=== PATIENT | male | born 1955 | race Caucasian/White ===

== ENCOUNTER 2022-10-01 16:26 | Inpatient (IN) ==
[~2022-10-01 16:26] MED LIST: ONDANSETRON 4 MG/2 ML VIAL ONE; PHENYLephrine 1 MG/10 ML SYRINGE (ANEST) ONE; PROPOFOL 200 MG/20 ML VIAL IV ONE; ROCURONIUM 10 MG/ML ML IV ONE; SUGAMMADEX SODIUM 200 MG/2 ML VIAL IV ONE; ePHEDrine 50 MG/5 ML SYRINGE (ANEST) IV ONE; fentaNYL 100 MCG/2 ML VIAL IV ONE
[2022-10-01] MEDS ORDERED: ONDANSETRON 4 MG/2 ML VIAL IV ONE ×2 (16:58→17:59)
[2022-10-01] MEDS ORDERED: ONDANSETRON 4 MG/2 ML VIAL ONE ×2 (17:00→17:54)
--- NOTE | 2022-10-01 17:03 | Emergency Department Note ---
HPI General Chief complaint: Trauma Stated complaint: Hip pain Time Seen by Provider: 10/01/22 16:43 Source: EMS Mode of arrival: EMS Limitations: no limitations History of Present Illness HPI Narrative: Narrative: This 67-year-old was brought in by EMS after falling in his bathtub approximately 1545. EMS transported him after the use of fentanyl and his responses were a little slurred but he is clearing at this point. He called his sister who called EMS and they treated him with pain meds for what apppears to be a right hip dracture. The patient lives independently, and normally can give full answers at the current time he has slurred speech and is starting to vomit recurrently His pulse is 48 as well. Patient's had a previous craniotomy for aneurysm removal and is currently anticoagulated. His other medical history is diabetes type 2 COPD renal cell carcinoma renal insufficiency subarachnoid hemor rhage DVT status post ventriculoperitoneal shunt. Related Data Home Medications Medication Instructions Recorded Confirmed albuterol sulfate 90 mcg/actuation 2 puff inhalation Q4H PRN 12/25/19 10/02/22 aerosol inhaler (Ventolin HFA) shortness of breath or wheezing insulin glargine 100 unit/mL (3 10 unit subcut QDAY 12/25/19 10/02/22 mL) subcutaneous pen (Lantus Solostar U-100 Insulin) melatonin 3 mg tablet 3 mg PO QHS 12/25/19 10/02/22 atorvastatin 40 mg tablet 40 mg PO QDAY 03/29/22 10/02/22 clopidogrel 75 mg tablet 75 mg PO QDAY 03/29/22 10/02/22 metoprolol succinate 25 mg 25 mg PO QDAY 03/29/22 10/02/22 tablet,extended release 24 hr Previous Rx's Medication Instructions Recorded lancets (Accu-Chek Softclix #100 ea 07/30/18 Lancets) syringe (disposable) 1 mL #240 ea 07/06/19 (Monoject TB Luer Serenity) blood sugar diagnostic (Accu-Chek #100 ea 07/22/20 Aliza Plus test strips) pen needle, diabetic 31 gauge x #100 ea 10/31/21 5/16" (Unifine Pentips) acetaminophen 325 mg tablet 325 mg PO Q4H PRN fever or pain 12/07/21 #100 tabs cholestyramine (with sugar) 4 gram 4 g PO BID #378 grams 12/07/21 oral powder nitroglycerin 0.3 mg sublingual 0.3 mg sublingual Q5M PRN chest 03/21/22 tablet pain #30 tabs fluoxetine 20 mg capsule 20 mg PO QDAY #90 caps 07/27/22 warfarin 6 mg tablet See Rx Instructions PO .COMPLEX 09/12/22 #90 tabs Allergies Allergy/AdvReac Type Severity Reaction Status Date / Time lisinopril Allergy Severe Angioedema Verified 10/01/22 16:30 Bee Stings AdvReac Mild Swelling Uncoded 10/01/22 21:42 Review of Systems ROS ROS Narrative: Narrative: All systems ED: reviewed and negative except as stated. [facility] Narrative Patient History Narrative: Narrative: Medical/Surgical/Family History All Active Problems (Updated 10/02/22 @ 15:00 by Perfecto Wolf MD) Aspiration pneumonia (Acute) H/O coronary atherosclerosis (Acute) Closed hip fracture requiring operative repair (Acute) CHI (closed head injury) (Acute) H/O craniotomy (Acute) Aspiration into airway (Acute) Personal history of colonic polyps (Acute) Prostate cancer screening (Acute) COPD (chronic obstructive pulmonary disease) (Chronic) Degeneration, intervertebral disc (Acute) DMII (diabetes mellitus, type 2) (Chronic) Ankle edema (Acute 02/12/12) Hyperlipidemia (Acute) Kidney mass (Acute 11/28/11) Knee pain (Acute 02/04/12) Low back pain (Acute) Night sweats (Acute 03/17/12) Renal cell carcinoma (Acute 11/24/12) H/O renal cell carcinoma (Chronic 11/27/12) Renal insufficiency (Acute 11/28/11) Renal mass (Acute 11/16/13) Testicular hypofunction (Acute) Degenerative joint disease of right knee (Chronic) Impingement syndrome, shoulder, left (Chronic) Tobacco abuse (Chronic) Adverse reaction to ZAKIA-I (angiotensin-converting enzyme inhibitor) (Acute) Angioedema due to angiotensin converting enzyme inhibitor (ZAKIA-I) (Acute) Left knee pain (Acute) SAH (subarachnoid hemorrhage) (Acute) DVT, bilateral lower limbs (Acute) Right knee pain (Acute) termite control service representative (current) use of anticoagulants (Acute) Depression (Acute) DVT (deep venous thrombosis) (Acute) Medicare annual wellness visit, subsequent (Acute) Respirator dependence, status (Acute) Chronic diarrhea (Acute) RLQ abdominal pain (Acute) Cervicalgia (Acute) Foraminal stenosis of cervical region (Acute) History of ventriculoperitoneal shunting (Acute) Abnormal INR (Acute) Left shoulder pain (Acute) Right knee pain (Acute) Painless hematuria (Acute) BPH associated with nocturia (Acute) Annual physical exam (Acute) Tobacco abuse counseling (Acute) Gross hematuria (Acute) Olecranon bursitis of left elbow (Acute) Fracture, olecranon (Acute) Hand swelling (Acute) Left eye pain (Acute) Tobacco abuse counseling (Acute) Acute non-ST elevation myocardial infarction (NSTEMI) (Acute) Stented coronary artery (Acute) History of left heart catheterization (Acute) Medical History Abnormal INR Abscess of skin or subcutaneous tissue Ankle edema (02/12/12) Bilateral Annual physical exam Annual physical exam BPH associated with nocturia Cholecystitis (10/26/11) Cholelithiasis (10/26/11) Chronic diarrhea COPD (chronic obstructive pulmonary disease) Degeneration, intervertebral disc Degenerative joint disease of right knee Moderaate Depression DMII (diabetes mellitus, type 2) DVT (deep venous thrombosis) DVT, bilateral lower limbs Epididymitis (02/04/12) H/O renal cell carcinoma (11/27/12) History of gastrostomy tube placement (11/11/19) History of left heart catheterization NSTEMI with stent placement 05/2022 at [facility] Hospital discharge follow-up Hyperlipidemia Impingement syndrome, shoulder, left Kidney mass (11/28/11) Patient had laparoscopic left nephrectomy with Dr. 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 Vita MELISSA (subarachnoid hemorrhage) Subungual contusion of toe of left foot Testicular hypofunction Tobacco abuse Tobacco abuse counseling Tooth abscess URI (upper respiratory infection) (05/16/14) [facility] Surgical History H/O prostate biopsy (11/28/11) Done in [place] H/O right knee surgery 2006 Right knee scope with Dr. Gorman H/O shoulder surgery Right shoulder surgery early November 2013 per 12-30-2013 Dr. Gorman H/O wisdom tooth extraction (07/19/06) Hx of cholecystectomy (11/28/11) Done at [facility] with Dr. Schmdit S/p nephrectomy (11/28/11) Left nephrectomy done laparoscopic with Dr. Chandra in [place], [place] at [facility] Family History Father Disorder of gallbladder Aunt Disorder of gallbladder Unknown Essential hypertension Sister Kidney disorder Mother Malignant neoplasm of lung Smoker Other Cancer Diabetes Prostate cancer Social History Smoking Status: Current every day smoker Alcohol Intake Frequency: a few times a week Substance Use: does not use Exam Narrative Narrative: Narrative: General: Patient vomiting when I first went into the room. He was laid flat by EMS. We responded by raising the head of his bed and suctioning him, he was still conscious and answering questions though. Neuro: GCS = 13 (e3/v4/m6) Cranial nerves II through XII are grossly intact; there is no sensory or motor deficit with the exception of the patient's right hip due to its being very painful. Ortho: Deformed externally rotated and shortened hip pelvis is nontender neck and thoracic and lumbar vertebral dorsal processes are nontender. Cranium has no new skull defects, but has signs of previous craniotomy. Neg hemetympanum , PERRA EOMI with 2 beat nystagmus. The rest of his body has full range of motion of all extremities, without deformity. Lung sounds are clear and equal bilaterally, heart is a regular rate and rhythm without murmurs clicks rubs or gallops General Limitations: no limitations Course Course Course Narrative: Patient was suctioned and the head of the bed was raised. He was given ondansetron 4 mg IV and taken to CAT scan for a head CT without contrast. As well as a hip and a chest x-ray. The head CT showed no acute intracranial bleed but did see a [employer] shunt on the left parietal lobe. His hip fracture look like a right femoral neck almost an intertrochanteric fracture with external rotation and shortening of the leg. Dr. Sanders was contacted and agreed to consult on the patient he also recalled the hospitalist. The patient's INR is 2 at this time on Coumadin. Reevaluation(s) Reevaluation #1: On recheck, the patient was sitting up and able to answer questions more cogently. He had no cough at the time and its possible he did not aspirate even no he was vomiting straight over his head when I first saw him. The plan to admit the patient check his x-rays and clinical condition for possible aspiration was transmitted to the patient and his sister and they both understood and agreed to the admission. Patient was turned over to Dr. Hernandez at change of shift. Time: 18:15 Vital Signs Vital signs: Vital Signs Temperature 97.2 F 10/01/22 16:27 Pulse Rate 48 L 10/01/22 16:27 Respiratory Rate 12 10/01/22 16:27 Blood Pressure 158/66 10/01/22 16:27 Pulse Oximetry (%) 90 10/01/22 16:27 Oxygen Delivery Method Nasal Cannula 10/01/22 16:27 Oxygen Flow Rate (L/min) 2 10/01/22 16:27 Temperature 97.9 F 10/05/22 03:40 Pulse Rate 56 L 10/05/22 04:00 Respiratory Rate 18 10/05/22 04:00 Blood Pressure 156/73 10/05/22 03:40 Pulse Oximetry (%) 96 10/05/22 04:00 Oxygen Delivery Method Nasal Cannula 10/05/22 04:00 Oxygen Flow Rate (L/min) 3 10/05/22 04:00 [facility] MDM Narrative Medical decision making narrative: Narrative: Lab Data 10/05/22 05:20 10/05/22 05:20 Labs: Lab Results 10/01/22 10/01/22 10/01/22 Range/Units 03:10 16:54 16:55 WBC 13.2 H (4.5-11.0) K/mcL RBC 4.23 L (4.63-6.08) M/mcL Hgb 12.6 L (13.7-17.5) g/dL Hct 38.1 L (40.1-51.0) % POC Hct (41-55) MCV 90.1 (80.0-100.0) fL MCH 29.8 (26.0-34.0) pg MCHC 33.1 (31.0-36.0) g/dL RDW 14.6 H (11.5-14.5) % Plt Count 184 (140-440) K/mcL MPV 10.6 (8.8-12.5) fL Immature Gran % (Auto) 0.9 H (0.0-0.5) % Neut % (Auto) 75.1 (38.0-78.0) % Lymph % (Auto) 14.1 L (15.5-49.0) % [place] % (Auto) 8.2 (1.0-12.0) % Eos % (Auto) 1.2 (0.0-7.0) % Baso % (Auto) 0.5 (0.0-2.0) % Lymph # (Auto) 1.86 (1.50-4.80) K/mcL [place] # (Auto) 1.08 H (0.10-0.90) K/mcL Eos # (Auto) 0.16 (0.00-0.70) K/mcL Baso # (Auto) 0.07 (0.00-0.30) K/mcL Immature Gran # 0.12 H (0.00-0.05) K/mcl Absolute Neutrophils 9.87 H (1.80-8.00) K/mcL PT 23.5 H (11.9-14.5) sec INR 2.0 H (0.9-1.1) APTT 34.2 (20.0-37.0) sec POC Sodium (133-145) POC Potassium (3.3-5.1) POC Chloride (96-108) POC Total CO2 (22-30) POC BUN (6-20) POC Creatinine (0.6-1.2) POC Glucose (70-105) POC WB Ioniz Calcium (1.16-1.32) Urine Opiates Screen None detected Ur Opiates Confirm TNP Ur Oxycodone Screen Suspect positive A Urine Methadone Screen None detected Ur Methadone Confirm TNP Ur Barbiturates Screen None detected Ur Barbiturate Confirm TNP Ur Phencyclidine Scrn None detected Urine PCP Confirm TNP Ur Amphetamines Screen None detected U Amphetamines Confirm TNP U Benzodiazepines Scrn None detected Ur Benzodiazepine, Qnt TNP Urine Cocaine Screen None detected Urine Cocaine Confirm TNP U Cannabinoids Confirm TNP U Marijuana (THC) Screen None detected Urine Alcohol None detected mg/dL POC Troponin I (0.00-0.08) 10/01/22 10/01/22 Range/Units 17:42 17:45 WBC (4.5-11.0) K/mcL RBC (4.63-6.08) M/mcL Hgb (13.7-17.5) g/dL Hct (40.1-51.0) % POC Hct 42.0 (41-55) MCV (80.0-100.0) fL MCH (26.0-34.0) pg MCHC (31.0-36.0) g/dL RDW (11.5-14.5) % Plt Count (140-440) K/mcL MPV (8.8-12.5) fL Immature Gran % (Auto) (0.0-0.5) % Neut % (Auto) (38.0-78.0) % Lymph % (Auto) (15.5-49.0) % [place] % (Auto) (1.0-12.0) % Eos % (Auto) (0.0-7.0) % Baso % (Auto) (0.0-2.0) % Lymph # (Auto) (1.50-4.80) K/mcL [place] # (Auto) (0.10-0.90) K/mcL Eos # (Auto) (0.00-0.70) K/mcL Baso # (Auto) (0.00-0.30) K/mcL Immature Gran # (0.00-0.05) K/mcl Absolute Neutrophils (1.80-8.00) K/mcL PT (11.9-14.5) sec INR (0.9-1.1) APTT (20.0-37.0) sec POC Sodium 141 (133-145) POC Potassium 4.5 (3.3-5.1) POC Chloride 109 H (96-108) POC Total CO2 24.0 (22-30) POC BUN 21 H (6-20) POC Creatinine 1.2 (0.6-1.2) POC Glucose 174 H (70-105) POC WB Ioniz Calcium 1.10 L (1.16-1.32) Urine Opiates Screen Ur Opiates Confirm Ur Oxycodone Screen Urine Methadone Screen Ur Methadone Confirm Ur Barbiturates Screen Ur Barbiturate Confirm Ur Phencyclidine Scrn Urine PCP Confirm Ur Amphetamines Screen U Amphetamines Confirm U Benzodiazepines Scrn Ur Benzodiazepine, Qnt Urine Cocaine Screen Urine Cocaine Confirm U Cannabinoids Confirm U Marijuana (THC) Screen Urine Alcohol mg/dL POC Troponin I < 0.02 (0.00-0.08) Discharge Plan Patient/Caregiver Discharge Instructions Pt seen by ELECTRIC RELAY TESTER/PA only: No Clinical Impression: CHI (closed head injury), H/O craniotomy, Aspiration into airway Closed hip fracture requiring operative repair Qualifiers: Encounter type: initial encounter Activity: as instructed Patient Disposition: Xfer As Inpt ([facility]) Discharge Date/Time: 10/01/22 21:02
[2022-10-01 17:17] LABS: Basophils # (Auto) 0.07 K/mcL (0.00-0.30); Basophils % (Auto) 0.5 % (0.0-2.0); Eosinophils # (Auto) 0.16 K/mcL (0.00-0.70); Eosinophils % (Auto) 1.2 % (0.0-7.0); Hematocrit 38.1 % (40.1-51.0); Hemoglobin 12.6 g/dL (13.7-17.5); Lymphocytes # (Auto) 1.86 K/mcL (1.50-4.80); Lymphocytes % (Auto) 14.1 % (15.5-49.0); Mean Cell Volume 90.1 fL (80.0-100.0); Mean Corpuscular HGB Conc 33.1 g/dL (31.0-36.0); Mean Platelet Volume 10.6 fL (8.8-12.5); Monocytes # (Auto) 1.08 K/mcL (0.10-0.90); Monocytes % (Auto) 8.2 % (1.0-12.0); Neutrophils % (Auto) 75.1 % (38.0-78.0); Platelet Count 184 K/mcL (140-440); RBC 4.23 M/mcL (4.63-6.08); Red Cell Distribution Width 14.6 % (11.5-14.5); WBC 13.2 K/mcL (4.5-11.0)
[2022-10-01 17:28] LABS: Partial Thromboplastin Time 34.2 sec (20.0-37.0); Prothrombin Time 23.5 sec (11.9-14.5)
--- NOTE | 2022-10-01 17:49 | XRay Report ---
CLINICAL INFORMATION: Aspiration COMPARISON: 03/21/2022 TECHNIQUE: PA and Lateral views FINDINGS: The heart size, mediastinum and pulmonary vessels are unremarkable. The lungs are clear. There are no effusions. The bones and soft tissues are within normal limits. IMPRESSION: Normal chest. Interpreted and Authenticated by: Crow Rosario 10/01/22
--- NOTE | 2022-10-01 17:51 | XRay Report ---
CLINICAL INFORMATION: 3414 trauma COMPARISON: Pelvic CT 02/05/2012 FINDINGS: Acute intertrochanteric fracture of the right hip shows mild impaction and very slight coxa vera angulation. No displacement. Both hip and SI joints are normal with alignment without arthritic change. Soft tissues normal. IMPRESSION: Slightly impacted, angulated acute intertrochanteric fracture of the right hip Interpreted and Authenticated by: Crow Rosario 10/01/22
--- NOTE | 2022-10-01 17:55 | Cat Scan Report ---
CLINICAL INFORMATION: COMPARISON: None. TECHNIQUE: 2.5 mm helical slices were obtained in the skull base to vertex. Following reconstruction, axial reformatted images were reviewed at bone and parenchymal windows. The exam was performed using radiation dose optimization techniques including, but not limited to, automated exposure control, adjustment of the mA and/or kV according to patient size and use of iterative reconstruction technique. FINDINGS: A [facility] shunt catheter enters through a left parietal craniotomy, near vertex, and extends anteriorly/inferiorly through the left parietal lobe including the deep left parietal and left frontal white matter, the genu and anterior limb of the left internal and the left caudate nucleus. The tip of the catheter is seen in the frontal horn of the left lateral ventricle. The ventricles sulci fissures and cisterns are symmetrically enlarged compatible with mild atrophy.. There is no hemorrhage or other normality seen along the shunt tract. Patchy chronic ischemic changes are noted in the deep left frontal white matter. Bitemporal craniotomy changes noted with aneurysm clips in the region of the M2 middle cerebral arteries. There is a 3 cm region of encephalomalacia in the right anterior temporal lobe in the region of the clip. Also 3 cm region of encephalomalacia in the left frontal lobe anterior to the left aneurysm clip. IMPRESSION: 1. [facility] shunt catheter entering through left posterior parietal craniotomy extending anteriorly through the left parietal lobe, deep left parietal and frontal white matter, internal capsule and caudate nucleus. Catheter tip penetrates penetrates the frontal horn of the lateral ventricle. Delete that 2. 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 Moderate encephalomalacia in the adjacent left frontal lobe and adjacent right anterior temporal lobe. Interpreted and Authenticated by: Crow Rosario 10/01/22
[2022-10-01 17:57] LABS: POC Calcium, Ionized 1.1 (1.16-1.32); POC Creatinine 1.2 (0.6-1.2); POC Potassium 4.5 (3.3-5.1)
[2022-10-01] MEDS ORDERED: PIPERACILLIN SODIUM/TAZOBACTAM 4.5 GM in DEXTROSE 5% IN WATER 50 ML IV ONE (18:22)
--- NOTE | 2022-10-01 19:24 | Orthopedic Consult Note ---
HPI Date of Consult Consult Date: 10/02/22 Primary Care Provider: Billy Mascorro MD Consult Narrative Patient Information: Note initiated : 10/01/22 at 7:17 pm Service Date, if different from initiated Date: [] Patient: Wm Turner 67 y/o M admitted on for Hip pain. Chief Complaint: [Right hip pain status post fall] Chief complaint: Right hip pain status post fall Reason for consult: Right hip pain status post fall cc:: CC: Review of Systems All systems: reviewed and no additional remarkable complaints except as stated PFSH PFSH All Active Problems (Updated 10/02/22 @ 06:08 by Alvin Kaiser PA-C) H/O coronary atherosclerosis (Acute) Closed hip fracture requiring operative repair (Acute) CHI (closed head injury) (Acute) H/O craniotomy (Acute) Aspiration into airway (Acute) Personal history of colonic polyps (Acute) Prostate cancer screening (Acute) COPD (chronic obstructive pulmonary disease) (Chronic) Degeneration, intervertebral disc (Acute) DMII (diabetes mellitus, type 2) (Chronic) Ankle edema (Acute 02/12/12) Hyperlipidemia (Acute) Kidney mass (Acute 11/28/11) Knee pain (Acute 02/04/12) Low back pain (Acute) Night sweats (Acute 03/17/12) Renal cell carcinoma (Acute 11/24/12) H/O renal cell carcinoma (Chronic 11/27/12) Renal insufficiency (Acute 11/28/11) Renal mass (Acute 11/16/13) Testicular hypofunction (Acute) Degenerative joint disease of right knee (Chronic) Impingement syndrome, shoulder, left (Chronic) Tobacco abuse (Chronic) Adverse reaction to ZAKIA-I (angiotensin-converting enzyme inhibitor) (Acute) Angioedema due to angiotensin converting enzyme inhibitor (ZAKIA-I) (Acute) Left knee pain (Acute) SAH (subarachnoid hemorrhage) (Acute) DVT, bilateral lower limbs (Acute) Right knee pain (Acute) 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 (Acute) Depression (Acute) DVT (deep venous thrombosis) (Acute) Medicare annual wellness visit, subsequent (Acute) Respirator dependence, status (Acute) Chronic diarrhea (Acute) RLQ abdominal pain (Acute) Cervicalgia (Acute) Foraminal stenosis of cervical region (Acute) History of ventriculoperitoneal shunting (Acute) Abnormal INR (Acute) Left shoulder pain (Acute) Right knee pain (Acute) Painless hematuria (Acute) BPH associated with nocturia (Acute) Annual physical exam (Acute) Tobacco abuse counseling (Acute) Gross hematuria (Acute) Olecranon bursitis of left elbow (Acute) Fracture, olecranon (Acute) Hand swelling (Acute) Left eye pain (Acute) Tobacco abuse counseling (Acute) Acute non-ST elevation myocardial infarction (NSTEMI) (Acute) Stented coronary artery (Acute) History of left heart catheterization (Acute) Medical History Abnormal INR Abscess of skin or subcutaneous tissue Ankle edema (02/12/12) Bilateral Annual physical exam Annual physical exam BPH associated with nocturia Cholecystitis (10/26/11) Cholelithiasis (10/26/11) Chronic diarrhea COPD (chronic obstructive pulmonary disease) Degeneration, intervertebral disc Degenerative joint disease of right knee Moderaate Depression DMII (diabetes mellitus, type 2) DVT (deep venous thrombosis) DVT, bilateral lower limbs Epididymitis (02/04/12) H/O renal cell carcinoma (11/27/12) History of gastrostomy tube placement (11/11/19) History of left heart catheterization NSTEMI with stent placement 05/2022 at [facility] Hospital discharge follow-up Hyperlipidemia Impingement syndrome, shoulder, left Kidney mass (11/28/11) Patient had laparoscopic left nephrectomy with Dr. 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 Vita MELISSA (subarachnoid hemorrhage) Subungual contusion of toe of left foot Testicular hypofunction Tobacco abuse Tobacco abuse counseling Tooth abscess URI (upper respiratory infection) (05/16/14) SERGE Sesay Surgical History H/O prostate biopsy (11/28/11) Done in [place] H/O right knee surgery 2006 Right knee scope with Dr. Gorman H/O shoulder surgery Right shoulder surgery early November 2013 per 12-30-2013 Dr. Gorman H/O wisdom tooth extraction (07/19/06) Hx of cholecystectomy (11/28/11) Done at [facility] with Dr. Schmidt S/p nephrectomy (11/28/11) Left nephrectomy done laparoscopic with Dr. Chandra in [place], [place] at [facility] Family History Father Disorder of gallbladder Aunt Disorder of gallbladder Unknown Essential hypertension Sister Kidney disorder Mother Malignant neoplasm of lung Smoker Other Cancer Diabetes Prostate cancer Social History household members: significant other occupational status: disabled other: Children - 2 smoking status: Former smoker smoking status stop date: 09/27/22 alcohol intake frequency: a few times a week substance use type: does not use MEDS/ALLERGIES Home Medications and Allergies Home Medications Medication Instructions Recorded Confirmed Type lancets (Accu-Chek Softclix #100 ea 07/30/18 09/12/22 Rx Lancets) syringe (disposable) 1 mL #240 ea 07/06/19 09/12/22 Rx (Monoject TB Luer Serenity) albuterol sulfate 90 mcg/actuation 2 puff inhalation Q4H PRN 12/25/19 09/12/22 History aerosol inhaler (Ventolin HFA) shortness of breath or wheezing insulin glargine 100 unit/mL (3 10 unit subcut QDAY 12/25/19 09/12/22 History mL) subcutaneous pen (Lantus Solostar U-100 Insulin) melatonin 3 mg tablet 3 mg PO QHS 12/25/19 09/12/22 History blood sugar diagnostic (Accu-Chek #100 ea 07/22/20 09/12/22 Rx Aliza Plus test strips) pen needle, diabetic 31 gauge x #100 ea 10/31/21 09/12/22 Rx 5/16" (Unifine Pentips) acetaminophen 325 mg tablet 325 mg PO Q4H PRN fever or pain 12/07/21 09/12/22 Rx #100 tabs cholestyramine (with sugar) 4 gram 4 g PO BID #378 grams 12/07/21 09/12/22 Rx oral powder nitroglycerin 0.3 mg sublingual 0.3 mg sublingual Q5M PRN chest 03/21/22 09/12/22 Rx tablet pain #30 tabs atorvastatin 40 mg tablet 40 mg PO QDAY 03/29/22 09/12/22 History clopidogrel 75 mg tablet 75 mg PO QDAY 03/29/22 09/12/22 History metoprolol succinate 25 mg 25 mg PO QDAY 03/29/22 09/12/22 History tablet,extended release 24 hr fluoxetine 20 mg capsule 20 mg PO QDAY #90 caps 07/27/22 09/12/22 Rx warfarin 6 mg tablet See Rx Instructions PO .COMPLEX 09/12/22 09/12/22 Rx #90 tabs Allergies Allergy/AdvReac Type Severity Reaction Status Date / Time lisinopril Allergy Severe Angioedema Verified 10/01/22 16:30 Bee Stings AdvReac Mild Swelling Uncoded 10/01/22 21:42 Physical Examination Narrative Narrative: Narrative: Patient is a 67-year-old male on clopidogrel and Coumadin for anticoagulation with history of multiple comorbidities including: DVT, craniotomy for aneurysm, nephrectomy secondary to renal cell carcinoma, diabetes mellitus type 2 and history of tobacco abuse. Who presented to the [facility] emergency department via EMS after a fall in the bathtub in his own home and complained of right hip pain. Patient was medicated with fentanyl for pain by EMS prior to arrival. Upon arrival patient vomited with concern of aspiration, however chest examination appears clear and patient was evidently able to communicate with the ED provider without difficulty and without cough or shortness of breath. Imaging obtained in the ED includes head CT without contrast, AP view of the chest, and 3 views of the right hip and pelvis. Head CT is notable for atrophy and left-sided ventriculoperitoneal shunt. There is no obvious intracranial hemorrhage at this time. Imaging of the pelvis reveals right-sided intertrochanteric fracture of the right proximal femur with some mild rotation of the distal fragment. Dr. Sanders orthopedic surgeon And MELINDA Spicer were consulted for treatment options. A/P Assessment and plan (1) Closed hip fracture requiring operative repair: Status: Acute Qualifiers: Encounter type: initial encounter Plan On exam patient is laying in bed in no acute distress. He is alert and oriented x3, CN II through XII are grossly intact, pupils are PERRL with intact ocular motion. Head, neck, chest, abdomen are nontender to palpation. Lungs are equal and clear bilaterally heart normal rate and rhythm. Bilateral upper extremities are warm, well-perfused, neurovascularly intact. Bilateral lower extremities are warm, well-perfused, neurovascularly intact. At the right side hip and pelvis there is external rotation and tenderness to palpation as well as with any range of motion. Options were presented to the patient including nonsurgical and surgical option nonsurgical consisting of splinting, pain medicines, extended bedrest. Nonsurgical option carries the risk of increased pain, risk of DVT and pulmonary embolism, risk of injury to adjacent blood vessels nerves and other structures, loss of ambulation and mobility. At this time patient is interested in surgery. Plan is for right hip percutaneous intramedullary nail placement to take place emergently with Dr. Sanders orthopedic surgeon and MELINDA Spicer. Surgical risks were explained to the patient including but not limited to: Pain, bleeding, infection, injury to adjacent structures including nerves and blood vessels, need for further surgery, implant failure, stroke risk, cardiac c omplications including heart attack or ME, pulmonary complications including pneumonia or pulmonary embolism, anesthesia reactions and . Patient understands these risks and wishes to proceed with surgery. At last check, patient's INR was 2.0 we will await hospitalist medical clearance and morning lab values of the patient for surgical intervention. Nursing supervisor car and yard is aprised of situation and potential for surgery, she will have nursing contact surgeon and OR when we are cleared for surgery, likely this afternoon. Time Spent With Patient Time: Total time spent is greater than 50% in coordination of care (as documented) at patient's floor/unit and/or counseling patient:
--- NOTE | 2022-10-01 19:39 | Internal Med History&Physical ---
HPI History of Present Illness Patient information: Note initiated : 10/01/22 at 7:27 pm Service Date, if different from initiated Date: [] Patient: Wm Turner a 67 y/o M admitted on for Hip pain. Chief Complaint: [Fall] Chief complaint: Fall History of present illness: Mr. Turner is a 67 year old M history of DVT, type 2 diabetes mellitus, depression, COPD, CAD, dyslipidemia, presenting with 1 day history of cute onset 4. Today at around 1 PM when patient was taking shower in his own bathroom, he fell. He stated that he did not lose consciousness. However, he does not remember much details about the accident. Right now he is complaining of severe constant right hip pain without radiations. He denies any chest pain or palpitations. He denies any headache. He denies any confusions. He denies any lethargy. He denies any shortness of breath cough or respiratory wheezings. X-ray showing right hip intertrochanteric fracture. CT of the head without contrast did not show any acute intracranial pathologies. Chest x-ray does not show any intra thoracic pathologies. Admission request is called for right hip fracture. INR 2.0 patient is on Coumadin. Constitutional Constitutional: Absent chills, excessive sweating, fatigue, fever(s) or weakness EENT Eyes: Absent blurry vision, change in vision, loss of vision or other visual disturbances Ears: Absent decreased hearing or tinnitus Nose, mouth and throat: Absent abnormal hearing, dry mouth, headache(s), nasal congestion or sore throat Cardiovascular Cardiovascular: Absent chest pain, chest pain at rest, edema, irregular heart rhythm or palpatations Respiratory Respiratory: Absent cough, dyspnea or wheezing Gastrointestinal Gastrointestinal: Absent abdominal pain, constipation, diarrhea, nausea or vomiting Musculoskeletal Musculoskeletal: Absent back pain, deformity, limited range of motion, muscle cramps, muscle weakness or numbness Additional comments: Right hip pain Integumentary Integumentary: Absent lesions, rash or wounds Neurological Neurological: Absent focal weakness, headache(s) or numbness Psychiatric Psychiatric: Absent anxiety, depression or hallucinations PFSH PFSH All Active Problems (Updated 10/01/22 @ 19:32 by Perfecto Wolf MD) H/O coronary atherosclerosis (Acute) Closed hip fracture requiring operative repair (Acute) CHI (closed head injury) (Acute) H/O craniotomy (Acute) Aspiration into airway (Acute) Personal history of colonic polyps (Acute) Prostate cancer screening (Acute) COPD (chronic obstructive pulmonary disease) (Chronic) Degeneration, intervertebral disc (Acute) DMII (diabetes mellitus, type 2) (Chronic) Ankle edema (Acute 02/12/12) Hyperlipidemia (Acute) Kidney mass (Acute 11/28/11) Knee pain (Acute 02/04/12) Low back pain (Acute) Night sweats (Acute 03/17/12) Renal cell carcinoma (Acute 11/24/12) H/O renal cell carcinoma (Chronic 11/27/12) Renal insufficiency (Acute 11/28/11) Renal mass (Acute 11/16/13) Testicular hypofunction (Acute) Degenerative joint disease of right knee (Chronic) Impingement syndrome, shoulder, left (Chronic) Tobacco abuse (Chronic) Adverse reaction to ZAKIA-I (angiotensin-converting enzyme inhibitor) (Acute) Angioedema due to angiotensin converting enzyme inhibitor (ZAKIA-I) (Acute) Left knee pain (Acute) SAH (subarachnoid hemorrhage) (Acute) DVT, bilateral lower limbs (Acute) Right knee pain (Acute) penitentiary (current) use of anticoagulants (Acute) Depression (Acute) DVT (deep venous thrombosis) (Acute) Medicare annual wellness visit, subsequent (Acute) Respirator dependence, status (Acute) Chronic diarrhea (Acute) RLQ abdominal pain (Acute) Cervicalgia (Acute) Foraminal stenosis of cervical region (Acute) History of ventriculoperitoneal shunting (Acute) Abnormal INR (Acute) Left shoulder pain (Acute) Right knee pain (Acute) Painless hematuria (Acute) BPH associated with nocturia (Acute) Annual physical exam (Acute) Tobacco abuse counseling (Acute) Gross hematuria (Acute) Olecranon bursitis of left elbow (Acute) Fracture, olecranon (Acute) Hand swelling (Acute) Left eye pain (Acute) Tobacco abuse counseling (Acute) Acute non-ST elevation myocardial infarction (NSTEMI) (Acute) Stented coronary artery (Acute) History of left heart catheterization (Acute) Medical History Abnormal INR Abscess of skin or subcutaneous tissue Ankle edema (02/12/12) Bilateral Annual physical exam Annual physical exam BPH associated with nocturia Cholecystitis (10/26/11) Cholelithiasis (10/26/11) Chronic diarrhea COPD (chronic obstructive pulmonary disease) Degeneration, intervertebral disc Degenerative joint disease of right knee Moderaate Depression DMII (diabetes mellitus, type 2) DVT (deep venous thrombosis) DVT, bilateral lower limbs Epididymitis (02/04/12) H/O renal cell carcinoma (11/27/12) History of gastrostomy tube placement (11/11/19) History of left heart catheterization NSTEMI with stent placement 05/2022 at [facility] Hospital discharge follow-up Hyperlipidemia Impingement syndrome, shoulder, left Kidney mass (11/28/11) Patient had laparoscopic left nephrectomy with Dr. Chandra in [facility] Knee pain (02/04/12) Right knee Left shoulder pain penitentiary (current) use of anticoagulants penitentiary current use of anticoagulant therapy Low back pain Medicare annual wellness visit, subsequent Night sweats (03/17/12) Renal cell carcinoma (11/24/12) Renal insufficiency (11/28/11) Renal mass (11/16/13) Respirator dependence, status Right knee pain Right knee pain RLQ abdominal pain Rotator cuff (capsule) sprain and strain 12-30-2013 Dr. Gorman SAH (subarachnoid hemorrhage) Subungual contusion of toe of left foot Testicular hypofunction Tobacco abuse Tobacco abuse counseling Tooth abscess URI (upper respiratory infection) (05/16/14) SERGE Sesay Surgical History H/O prostate biopsy (11/28/11) Done in [place] H/O right knee surgery 2006 Right knee scope with Dr. Gorman H/O shoulder surgery Right shoulder surgery early November 2013 per 12-30-2013 Dr. Gorman H/O wisdom tooth extraction (07/19/06) Hx of cholecystectomy (11/28/11) Done at [facility] with Dr. Schmidt S/p nephrectomy (11/28/11) Left nephrectomy done laparoscopic with Dr. Chandra in [place], [place] at [facility] Family History Father Disorder of gallbladder Aunt Disorder of gallbladder Unknown Essential hypertension Sister Kidney disorder Mother Malignant neoplasm of lung Smoker Other Cancer Diabetes Prostate cancer Social History household members: significant other occupational status: disabled other: Children - 2 smoking status: Current every day smoker tobacco type: cigarettes per day: 10 alcohol intake frequency: a few times a week substance use type: does not use MEDS/ALLERGIES Home Medications and Allergies Home Medications Medication Instructions Recorded Confirmed Type lancets (Accu-Chek Softclix #100 ea 07/30/18 09/12/22 Rx Lancets) syringe (disposable) 1 mL #240 ea 07/06/19 09/12/22 Rx (Monoject TB Luer Serenity) albuterol sulfate 90 mcg/actuation 2 puff inhalation Q4H PRN 12/25/19 09/12/22 History aerosol inhaler (Ventolin HFA) shortness of breath or wheezing insulin glargine 100 unit/mL (3 10 unit subcut QDAY 12/25/19 09/12/22 History mL) subcutaneous pen (Lantus Solostar U-100 Insulin) melatonin 3 mg tablet 3 mg PO QHS 12/25/19 09/12/22 History blood sugar diagnostic (Accu-Chek #100 ea 07/22/20 09/12/22 Rx Aliza Plus test strips) pen needle, diabetic 31 gauge x #100 ea 10/31/21 09/12/22 Rx 5/16" (Unifine Pentips) acetaminophen 325 mg tablet 325 mg PO Q4H PRN fever or pain 12/07/21 09/12/22 Rx #100 tabs cholestyramine (with sugar) 4 gram 4 g PO BID #378 grams 12/07/21 09/12/22 Rx oral powder nitroglycerin 0.3 mg sublingual 0.3 mg sublingual Q5M PRN chest 03/21/22 09/12/22 Rx tablet pain #30 tabs atorvastatin 40 mg tablet 40 mg PO QDAY 03/29/22 09/12/22 History clopidogrel 75 mg tablet 75 mg PO QDAY 03/29/22 09/12/22 History metoprolol succinate 25 mg 25 mg PO QDAY 03/29/22 09/12/22 History tablet,extended release 24 hr fluoxetine 20 mg capsule 20 mg PO QDAY #90 caps 07/27/22 09/12/22 Rx warfarin 6 mg tablet See Rx Instructions PO .COMPLEX 09/12/22 09/12/22 Rx #90 tabs Allergies Allergy/AdvReac Type Severity Reaction Status Date / Time lisinopril Allergy Severe Angioedema Verified 10/01/22 16:30 Bee Stings Allergy Unknown Unknown Uncoded 09/12/22 12:49 EXAM Constitutional Vitals: Temp Pulse Resp BP Pulse Ox O2 Del Method O2 Flow Rate 36.2 C 54 L 20 122/92 97 Nasal Cannula 2 10/01/22 16:27 10/01/22 19:15 10/01/22 19:15 10/01/22 19:02 10/01/22 19:15 10/01/22 16:27 10/01/22 16:27 General appearance: cooperative and no acute distress Head Head exam: Present atraumatic and normocephalic Eye Eye exam: Present EOMI and PERRL ENT ENT exam: Present mucous membranes moist, normal exam and normal external ear exam Neck Neck exam: Present normal inspection; Absent lymphadenopathy, tenderness or thyromegaly Respiratory Respiratory exam: Absent accessory muscle use, respiratory distress or wheezes Cardiovascular Cardiovascular exam: Present normal rate and rhythm; Absent JVD GI/Abdominal GI/Abdominal exam: Present normal bowel sounds and soft; Absent organomegaly or tenderness Rectal Rectal exam: Present deferred Extremities Exam Extremities exam: Present normal capillary refill and tenderness; Absent full ROM or normal inspection Additional comments: Right hip active and passive ROMs limited by pain Neurological Exam Neurological exam: Present alert, CN II-XII intact and oriented X3; Absent motor sensory deficit Psychiatric Psychiatric exam: Present normal affect and normal mood; Absent anxious or depressed Skin Skin exam: Present dry and intact DATA Data Completed and Pending Labs: Labs from last 24 hours 10/01/22 10/01/22 10/01/22 17:45 17:42 16:55 WBC 13.2 H RBC 4.23 L Hgb 12.6 L Hct 38.1 L POC Hct 42.0 MCV 90.1 MCH 29.8 MCHC 33.1 RDW 14.6 H Plt Count 184 MPV 10.6 Immature Gran % (Auto) 0.9 H Neut % (Auto) 75.1 Lymph % (Auto) 14.1 L [place] % (Auto) 8.2 Eos % (Auto) 1.2 Baso % (Auto) 0.5 Lymph # (Auto) 1.86 [place] # (Auto) 1.08 H Eos # (Auto) 0.16 Baso # (Auto) 0.07 Immature Gran # 0.12 H Absolute Neutrophils 9.87 H PT INR APTT POC Sodium 141 POC Potassium 4.5 POC Chloride 109 H POC Total CO2 24.0 POC BUN 21 H POC Creatinine 1.2 POC Glucose 174 H POC WB Ioniz Calcium 1.10 L POC Troponin I < 0.02 10/01/22 16:54 WBC RBC Hgb Hct POC Hct MCV MCH MCHC RDW Plt Count MPV Immature Gran % (Auto) Neut % (Auto) Lymph % (Auto) [place] % (Auto) Eos % (Auto) Baso % (Auto) Lymph # (Auto) [place] # (Auto) Eos # (Auto) Baso # (Auto) Immature Gran # Absolute Neutrophils PT 23.5 H INR 2.0 H APTT 34.2 POC Sodium POC Potassium POC Chloride POC Total CO2 POC BUN POC Creatinine POC Glucose POC WB Ioniz Calcium POC Troponin I A/P Assessment and plan (1) Closed hip fracture requiring operative repair: Status: Acute (2) COPD (chronic obstructive pulmonary disease): Status: Chronic (3) Hyperlipidemia: Status: Acute (4) DVT, bilateral lower limbs: Status: Acute (5) Depression: Status: Acute (6) rat exterminator (current) use of anticoagulants: Status: Acute (7) DMII (diabetes mellitus, type 2): Status: Chronic (8) H/O coronary atherosclerosis: Status: Acute Narrative A/P Narrative: Assessment and Plans: 1. Right hip intertrochanteric fracture: Admit to inpatient med surg Consult orthopedic surgeon Dr. Sanders for surgical fixation Daily INR while holding Coumadin Bedrest NPO after midnight with IV fluid Tylenol Oxycodone Dilaudid IV Physical therapy evaluation and treatment 2. h/o DVT: Holding Coumadin in preparation of the planned surgery 3. h/o CAD: Holding Aspirin and Plavix in preparation of the planned surgery Metoprolol succinate ER Lipitor 4. Dyslipidemia: Lipitor 5. T2DM: HgA1c Insulin Glargine 10 unit daily Insulin Lispro SSI AC HS Accu Check AC HS Hypoglycemia protocol Diabetic diet (NPO after midnight) 6. Depression: Fluoxetine 7. h/o COPD: DuoNEB NEB PRN shortness of breath or wheezing GI ppx: not currently indicated DVT ppx: SCDs Code status: Full Prognosis: guarded Disposition: inpatient med surg Time Spent With Patient Time: Total time spent is greater than 50% in coordination of care (as documented) at patient's floor/unit and/or counseling patient: Initial: Total time with patient: 55 - 74 minutes
[2022-10-01] MEDS ORDERED: hydrALAZINE 20 MG/ML VIAL IV PRN (21:09)
[2022-10-01] MEDS ORDERED: DEXTROSE 31 GM ORAL.SUSP PO PRN (21:09)
[2022-10-01] MEDS ORDERED: ACETAMINOPHEN 325 MG TABLET PO PRN (21:09)
[2022-10-01] MEDS ORDERED: traZODone HCL 50 MG TABLET PO PRN (21:09)
[2022-10-01] MEDS ORDERED: DEXTROSE 50% 50 ML VIAL IV PRN (21:09)
[2022-10-01] MEDS: 0.9 % SODIUM CHLORIDE 1,000 ML IV SCH (21:13)
[2022-10-01] MEDS: ONDANSETRON 4 MG/2 ML VIAL IV PRN (21:15)
[2022-10-01] MEDS: 0.9 % SODIUM CHLORIDE 10 ML SYRINGE IV SCH (21:15)
[2022-10-01] MEDS: INSULIN LISPRO 1 UNIT/0.01 ML UNIT SQ SCH (21:29)
[2022-10-01] MEDS: DOCUSATE SODIUM 100 MG CAPSULE PO SCH (21:35)
[2022-10-01] MEDS: SENNOSIDES 1 TABLET PO SCH (21:35)
[2022-10-01] MEDS: HYDROmorphone 1 MG/ML SYRINGE IV PRN (21:35)
[2022-10-01] MEDS: oxyCODONE IR 5 MG TABLET PO PRN (23:03)
[2022-10-02 04:16] LABS: Alcohol, Urine None Detected; Amphetamine Screen,Urine None detected; Barbiturate Screen,Urine None detected; Benzodiazepines Screen,Urine None detected; Cannabinoid Screen,Urine None detected; Cocaine Screen,Urine None detected; Opiate Screen,Urine None detected; Oxycodone, Urine Screen Suspect Positive; Phencyclidine Screen,Urine None detected
[2022-10-02] MEDS: 0.9 % SODIUM CHLORIDE 1,000 ML IV SCH ×4 (04:46→17:51)
[2022-10-02] MEDS: oxyCODONE IR 5 MG TABLET PO PRN ×4 (04:47→23:18)
[2022-10-02] MEDS: 0.9 % SODIUM CHLORIDE 10 ML SYRINGE IV SCH ×3 (04:47→23:48)
[2022-10-02 06:49] LABS: Basophils # (Auto) 0.06 K/mcL (0.00-0.30); Basophils % (Auto) 0.5 % (0.0-2.0); Eosinophils # (Auto) 0.02 K/mcL (0.00-0.70); Eosinophils % (Auto) 0.2 % (0.0-7.0); Hematocrit 38.7 % (40.1-51.0); Hemoglobin 12.8 g/dL (13.7-17.5); Lymphocytes # (Auto) 2.81 K/mcL (1.50-4.80); Lymphocytes % (Auto) 22.5 % (15.5-49.0); Mean Cell Volume 89.6 fL (80.0-100.0); Mean Corpuscular HGB Conc 33.1 g/dL (31.0-36.0); Mean Platelet Volume 11.1 fL (8.8-12.5); Monocytes # (Auto) 1.21 K/mcL (0.10-0.90); Monocytes % (Auto) 9.7 % (1.0-12.0); Neutrophils % (Auto) 66.6 % (38.0-78.0); Platelet Count 180 K/mcL (140-440); RBC 4.32 M/mcL (4.63-6.08); Red Cell Distribution Width 14.5 % (11.5-14.5); WBC 12.5 K/mcL (4.5-11.0)
[2022-10-02 07:09] LABS: INR 1.9 (0.9-1.1); Prothrombin Time 22.3 sec (11.9-14.5)
[2022-10-02] MEDS: INSULIN LISPRO 1 UNIT/0.01 ML UNIT SQ SCH ×4 (07:26→20:11)
[2022-10-02 07:43] LABS: Estimated Average Glucose(eAG) 157 mg/dL; Hemoglobin A1C 7.1 % Hgb (4.0-6.0)
[2022-10-02 07:44] LABS: ALT/SGPT 23 U/L (<40); AST/SGOT 21 U/L (<40); Albumin 3.2 gm/dL (3.2-5.2); Alkaline Phosphatase 90 U/L (39-117); Bilirubin,Total 0.7 mg/dL (0.1-1.0); Blood Urea Nitrogen 23 mg/dL (8-23); Calcium 8.1 mg/dL (8.6-10.4); Carbon Dioxide 27 mmol/L (22-30); Chloride 106 mmol/L (96-108); Globulin 3.1 gm/dL (2.2-3.7); Glomerular Filtration Rate 68; Glucose 133 mg/dL (70-105)
[2022-10-02] MEDS: DOCUSATE SODIUM 100 MG CAPSULE PO SCH ×2 (09:23→20:12)
[2022-10-02] MEDS: HYDROmorphone 1 MG/ML SYRINGE IV PRN (10:02)
--- NOTE | 2022-10-02 11:26 | Internal Med Progress Note ---
SUBJECTIVE Subjective Patient information: Note initiated : 10/02/22 at 11:23 am Service Date, if different from initiated Date: [] Patient: Wm Turner 67 y/o M admitted on 10/01/22 for Hip pain; RT hip fx. Chief Complaint: [] Interval history: Mr. Turner is a 67 year old M history of DVT, type 2 diabetes mellitus, depression, COPD, CAD, dyslipidemia, presenting with 1 day history of cute onset 4. Today at around 1 PM when patient was taking shower in his own bathroom, he fell. He stated that he did not lose consciousness. However, he does not remember much details about the accident. Right now he is complaining of severe constant right hip pain without radiations. He denies any chest pain or palpitations. He denies any headache. He denies any confusions. He denies any lethargy. He denies any shortness of breath cough or respiratory wheezings. X-ray showing right hip intertrochanteric fracture. CT of the head without contrast did not show any acute intracranial pathologies. Chest x-ray does not show any intra thoracic pathologies. Admission request is called for right hip fracture. INR 2.0 patient is on Coumadin. 10/02: INR 1.9 this morning. Patient is complaining of moderate right hip pain. He denies any shortness of breath. Orthopedic surgery scheduled at 4 PM today. Keep the patient n.p.o. with IV fluid for the time being. Continue narcotics as needed for pain control. Physical therapy evaluation and treatment for placement evaluation after the surgery. Overall condition guarded. Stay in Med Surg. Constitutional Vitals: Vital Signs Temp Pulse Resp BP Pulse Ox O2 Del Method O2 Flow Rate 36.7 C 87 20 145/86 90 Room Air 2 10/02/22 08:00 10/02/22 08:00 10/02/22 08:00 10/02/22 08:00 10/02/22 08:00 10/02/22 08:00 10/01/22 16:27 Period Temp Pulse Resp BP Sys/Lisa Pulse Ox O2 Del Method O2 Flow Rate Last 24 Hr 36.2 C-36.8 C 47-87 12-24 122-185/66-120 90-97 Nasal Cannula- Room Air 2 Intake and Output 10/01/22 10/02/22 10/02/22 19:59 03:59 11:59 Intake Total 50 275 1000 Output Total 300 Balance 50 -25 1000 Weight 117.48 kg 113.171 kg Intake & Output: Intake & Output 10/01/22 10/02/22 10/02/22 19:59 03:59 11:59 Intake Total 50 275 1000 Output Total 300 Balance 50 -25 1000 Weight 117.48 kg 113.171 kg Intake: IV 50 1000 Sodium Chloride 0.9% 1,000 ml @ 1000 100 mls/hr IV .Q10H [facility] Rx#: [id number] Zosyn 4.5 gm In Dextrose 5% in 50 Water 50 ml @ 100 mls/hr IV ONCE ONE Rx#:[id number] Oral 275 Output: Void Amount 300 Other: # Unmeasured Emesis 1 Head Head exam: Present atraumatic and normal inspection Eye Eye exam: Present normal appearance ENT ENT exam: Present mucous membranes moist, normal exam and normal external ear exam Neck Neck exam: Present normal inspection Respiratory Respiratory exam: Present normal respiratory exam Cardiovascular Cardiovascular exam: Present normal rate and rhythm GI/Abdominal GI/Abdominal exam: Present normal bowel sounds Extremities Exam Additional comments: Right hip active and passive ROMs limited by pain Back Exam Back exam: Present normal inspection Neurological Exam Neurological exam: Present alert and oriented X3 Skin Skin exam: Present intact and warm OBJ DATA Labs 10/02/22 05:54 10/02/22 05:54 Labs: Abnormal Lab Results 10/02/22 10/02/22 10/02/22 05:54 05:54 05:54 WBC 12.5 H RBC 4.32 L Hgb 12.8 L Hct 38.7 L RDW Immature Gran % (Auto) Lymph % (Auto) [place] # (Auto) 1.21 H Immature Gran # 0.06 H Absolute Neutrophils 8.32 H PT 22.3 H INR 1.9 H POC Chloride POC BUN Glucose 133 H POC Glucose Hemoglobin A1c 7.1 H Calcium 8.1 L POC WB Ioniz Calcium Ur Oxycodone Screen 10/01/22 10/01/22 10/01/22 17:42 16:55 16:54 WBC 13.2 H RBC 4.23 L Hgb 12.6 L Hct 38.1 L RDW 14.6 H Immature Gran % (Auto) 0.9 H Lymph % (Auto) 14.1 L [place] # (Auto) 1.08 H Immature Gran # 0.12 H Absolute Neutrophils 9.87 H PT 23.5 H INR 2.0 H POC Chloride 109 H POC BUN 21 H Glucose POC Glucose 174 H Hemoglobin A1c Calcium POC WB Ioniz Calcium 1.10 L Ur Oxycodone Screen 10/01/22 03:10 WBC RBC Hgb Hct RDW Immature Gran % (Auto) Lymph % (Auto) [place] # (Auto) Immature Gran # Absolute Neutrophils PT INR POC Chloride POC BUN Glucose POC Glucose Hemoglobin A1c Calcium POC WB Ioniz Calcium Ur Oxycodone Screen Suspect positive A Meds: Medications Acetaminophen (Acetaminophen 325 Mg Tablet) 650 mg PO Q6HP PRN; Protocol PRN Reason: Per Pain Protocol/Fever > 101 Albuterol/Ipratropium (Ipratropium/Albuterol 3 Ml Ampul.Neb) 3 ml NEB Q4HRT PRN PRN Reason: Wheezing Dextrose (Dextrose 50% 50 Ml Vial) 0 ml IV UD PRN PRN Reason: Per Sliding Scale Diagnostic Test (Pha) (Accu-Chek 1 Each Strip) 1 each FS [facility] Last Admin: 10/02/22 07:26 Dose: 1 each Docusate Sodium (Docusate Sodium 100 Mg Capsule) 100 mg PO BID [facility] Last Admin: 10/02/22 09:23 Dose: Not Given Glucose (Dextrose 31 Gm Oral.Susp) 15 gm PO PRN PRN PRN Reason: Hypoglycemia Hydralazine HCl (Hydralazine 20 Mg/Ml Vial) 10 mg IV Q4-6HP PRN PRN Reason: Hypertension Hydromorphone HCl (Hydromorphone 1 Mg/Ml Syringe) 1 mg IV Q4HP PRN; Protocol PRN Reason: Per Pain Protocol Last Admin: 10/02/22 10:02 Dose: 1 mg Sodium Chloride (Sodium Chloride 0.9%) 1,000 mls @ 100 mls/hr IV .Q10H [facility] Last Admin: 10/02/22 07:27 Dose: Not Given Insulin Human Lispro (Insulin Lispro 1 Unit/0.01 Ml Unit) 0 unit SQ [facility]; Protocol Last Admin: 10/02/22 07:26 Dose: Not Given Ondansetron HCl (Ondansetron 4 Mg/2 Ml Vial) 4 mg IV Q6HP PRN PRN Reason: Nausea And Vomiting Last Admin: 10/01/22 21:15 Dose: 4 mg Oxycodone HCl (Oxycodone Ir 5 Mg Tablet) 10 mg PO Q4HP PRN; Protocol PRN Reason: Per Pain Protocol Last Admin: 10/02/22 04:47 Dose: 10 mg Senna (Sennosides 1 Tablet) 2 tab PO HS [facility] Last Admin: 10/01/22 21:35 Dose: 2 tab Sodium Chloride (0.9 % Sodium Chloride 10 Ml Syringe) 10 ml IV Q8 [facility] Last Admin: 10/02/22 04:47 Dose: 10 ml Trazodone HCl (Trazodone Hcl 50 Mg Tablet) 50 mg PO HSP PRN PRN Reason: Insomnia A/P Assessment and plan (1) Closed hip fracture requiring operative repair: Status: Acute Qualifiers: Encounter type: initial encounter (2) COPD (chronic obstructive pulmonary disease): Status: Chronic (3) Hyperlipidemia: Status: Acute (4) DVT, bilateral lower limbs: Status: Acute (5) Depression: Status: Acute (6) snf (current) use of anticoagulants: Status: Acute (7) DMII (diabetes mellitus, type 2): Status: Chronic (8) H/O coronary atherosclerosis: Status: Acute Narrative A/P Narrative: Assessment and Plans: 1. Right hip intertrochanteric fracture: Stays in inpatient med surg Consult orthopedic surgeon Dr. Sanders for surgical fixation, surgery scheduled at 4pm today Daily INR while holding Coumadin Bedrest NPO after midnight with IV fluid Tylenol Oxycodone Dilaudid IV Physical therapy evaluation and treatment 2. h/o DVT: Holding Coumadin in preparation of the planned surgery 3. h/o CAD: Holding Aspirin and Plavix in preparation of the planned surgery Metoprolol succinate ER Lipitor 4. Dyslipidemia: Lipitor 5. T2DM: HgA1c 7.1 Insulin Glargine 10 unit daily Insulin Lispro SSI AC HS Accu Check AC HS Hypoglycemia protocol Diabetic diet (NPO after midnight) 6. Depression: Fluoxetine 7. h/o COPD: DuoNEB NEB PRN shortness of breath or wheezing GI ppx: not currently indicated DVT ppx: SCDs Code status: Full Prognosis: guarded Disposition: inpatient med surg Time Spent With Patient Time: Total time spent is greater than 50% in coordination of care (as documented) at patient's floor/unit and/or counseling patient: Subsequent: Total time with patient: 35 - 49 minutes QUALITY VTE Deep Vein Thrombosis/Pulmonary Embolism Present on Admission: Yes
--- NOTE | 2022-10-02 12:38 | XRay Report ---
CLINICAL INFORMATION: hypoxia COMPARISON: 10/01/2022 FINDINGS: Heart size, mediastinum and pulmonary vessels are normal. Small patchy bibasilar infiltrates have developed. No effusions. IMPRESSION: New small patchy bibasilar infiltrates. Consider infection or aspiration Interpreted and Authenticated by: Crow Rosario 10/02/22
[2022-10-02] MEDS: AZITHROMYCIN 500 MG in DEXTROSE 5% IN WATER 250 ML IV SCH (16:08)
[2022-10-02] MEDS: cefTRIAXone 1 GM VIAL IV SCH (16:08)
[2022-10-02] MEDS ORDERED: ALBUTEROL SULFATE 60 PUFF INHALER INH PRN (17:14)
[2022-10-02] MEDS ORDERED: NITROGLYCERIN 0.4 MG TAB.SUBL SL PRN (17:27)
[2022-10-02] MEDS: SENNOSIDES 1 TABLET PO SCH (20:11)
[2022-10-02] MEDS: MELATONIN 3 MG TABLET PO SCH (20:12)
[2022-10-02] MEDS: CHOLESTYRAMINE/ASPARTAME 4 GM POWD.PACK PO SCH (23:20)
[2022-10-03] MEDS: 0.9 % SODIUM CHLORIDE 1,000 ML IV SCH ×2 (05:32→12:56)
[2022-10-03 06:21] LABS: Basophils # (Auto) 0.08 K/mcL (0.00-0.30); Basophils % (Auto) 0.8 % (0.0-2.0); Eosinophils # (Auto) 0.45 K/mcL (0.00-0.70); Eosinophils % (Auto) 4.3 % (0.0-7.0); Hematocrit 36.9 % (40.1-51.0); Lymphocytes # (Auto) 2.06 K/mcL (1.50-4.80); Lymphocytes % (Auto) 19.8 % (15.5-49.0); Mean Cell Volume 92.7 fL (80.0-100.0); Mean Corpuscular HGB Conc 32.5 g/dL (31.0-36.0); Mean Platelet Volume 10.8 fL (8.8-12.5); Monocytes # (Auto) 1.21 K/mcL (0.10-0.90); Monocytes % (Auto) 11.6 % (1.0-12.0); Neutrophils % (Auto) 62.4 % (38.0-78.0); Platelet Count 146 K/mcL (140-440); RBC 3.98 M/mcL (4.63-6.08); Red Cell Distribution Width 14.9 % (11.5-14.5); WBC 10.4 K/mcL (4.5-11.0)
[2022-10-03 06:38] LABS: INR 1.9 (0.9-1.1); Prothrombin Time 22.1 sec (11.9-14.5)
[2022-10-03 06:49] LABS: ALT/SGPT 19 U/L (<40); AST/SGOT 20 U/L (<40); Albumin 3.1 gm/dL (3.2-5.2); Albumin/Globulin Ratio 1.2 (1.0-2.3); Alkaline Phosphatase 81 U/L (39-117); Bilirubin,Total 0.6 mg/dL (0.1-1.0); Blood Urea Nitrogen 26 mg/dL (8-23); Calcium 7.7 mg/dL (8.6-10.4); Carbon Dioxide 25 mmol/L (22-30); Chloride 109 mmol/L (96-108); Globulin 2.6 gm/dL (2.2-3.7); Glomerular Filtration Rate 61; Glucose 118 mg/dL (70-105)
[2022-10-03] MEDS: 0.9 % SODIUM CHLORIDE 10 ML SYRINGE IV SCH ×3 (06:49→23:53)
[2022-10-03] MEDS: HYDROmorphone 1 MG/ML SYRINGE IV PRN ×3 (06:49→19:12)
[2022-10-03] MEDS: CHOLESTYRAMINE/ASPARTAME 4 GM POWD.PACK PO SCH ×2 (07:09→19:12)
[2022-10-03] MEDS: INSULIN LISPRO 1 UNIT/0.01 ML UNIT SQ SCH ×4 (07:11→20:24)
[2022-10-03] MEDS: AZITHROMYCIN 500 MG in DEXTROSE 5% IN WATER 250 ML IV SCH (08:00)
[2022-10-03] MEDS: cefTRIAXone 1 GM VIAL IV SCH (08:00)
[2022-10-03] MEDS: METOPROLOL SUCCINATE 25 MG TAB.XL.24H PO SCH (08:01)
[2022-10-03] MEDS: INSULIN GLARGINE, HUMAN 1 UNIT/0.01 ML SQ SCH (08:01)
[2022-10-03] MEDS: ATORVASTATIN 40 MG TABLET PO SCH (08:01)
[2022-10-03] MEDS: DOCUSATE SODIUM 100 MG CAPSULE PO SCH ×2 (08:01→20:20)
[2022-10-03] MEDS: FLUoxetine HCL 20 MG CAPSULE PO SCH (08:01)
[2022-10-03] MEDS: oxyCODONE IR 5 MG TABLET PO PRN ×2 (08:07→14:07)
--- NOTE | 2022-10-03 12:06 | Internal Med Progress Note ---
SUBJECTIVE Subjective Patient information: Note initiated : 10/03/22 at 12:02 pm Service Date, if different from initiated Date: [] Patient: Wm Turner 67 y/o M admitted on 10/01/22 for Hip pain; RT hip fx. Chief Complaint: [] Interval history: Mr. Turner is a 67 year old M history of DVT, type 2 diabetes mellitus, depression, COPD, CAD, dyslipidemia, presenting with 1 day history of cute onset 4. Today at around 1 PM when patient was taking shower in his own bathroom, he fell. He stated that he did not lose consciousness. However, he does not remember much details about the accident. Right now he is complaining of severe constant right hip pain without radiations. He denies any chest pain or palpitations. He denies any headache. He denies any confusions. He denies any lethargy. He denies any shortness of breath cough or respiratory wheezings. X-ray showing right hip intertrochanteric fracture. CT of the head without contrast did not show any acute intracranial pathologies. Chest x-ray does not show any intra thoracic pathologies. Admission request is called for right hip fracture. INR 2.0 patient is on Coumadin. 10/02: INR 1.9 this morning. Patient is complaining of moderate right hip pain. He denies any shortness of breath. Orthopedic surgery scheduled at 4 PM today. Keep the patient n.p.o. with IV fluid for the time being. Continue narcotics as needed for pain control. Physical therapy evaluation and treatment for placement evaluation after the surgery. Overall condition guarded. Stay in Med Surg. 10/03: INR 1.9 this morning. WBC 10.4 this morning. Afebrile overnight. On 5L/min oxygen. All cultures no growth to date. Patient has been NPO since midnight. Will touch base with anesthesia team and Dr. Sanders regarding the timing for surgery. Keep the patient n.p.o. until decision is made. Continue antibiotics with Rocephin and azithromycin for aspiration pneumonia/pneumonitis. Follow-up repeat chest x-ray result. Continue supplemental oxygen therapy. Physical therapy evaluation and treatment for placement planning after the surgery. Overall condition guarded. Stay in [facility]. Constitutional Vitals: Vital Signs Temp Pulse Resp BP Pulse Ox O2 Del Method O2 Flow Rate 37.3 C H 75 16 128/76 99 Nasal Cannula 5 10/03/22 07:04 10/03/22 07:04 10/03/22 04:00 10/03/22 07:11 10/03/22 07:04 10/03/22 07:04 10/03/22 07:04 Period Temp Pulse Resp BP Sys/Lisa Pulse Ox O2 Del Method O2 Flow Rate Last 24 Hr 36.4 C-37.3 C 58-77 12-16 101-175/67-94 92-99 Nasal Cannula- Nasal Cannula 4-5 Intake and Output 10/03/22 10/03/22 10/03/22 03:59 11:59 19:59 Intake Total 0 250 Output Total 525 200 Balance -525 50 Weight 116.165 kg Patient Weight 10/04/22 03:59 Weight 116.165 kg Intake & Output: Intake & Output 10/03/22 10/03/22 10/03/22 03:59 11:59 19:59 Intake Total 0 250 Output Total 525 200 Balance -525 50 Weight 116.165 kg Intake: IV 0 250 Sodium Chloride 0.9% 1,000 ml @ 0 100 mls/hr IV .Q10H [facility] Rx#: [id number] Zithromax 500 mg In Dextrose 5% 250 in Water 250 ml @ 250 mls/hr IV Q24H [facility] Rx#:[id number] Oral 0 Output: Void Amount 525 200 Other: Urine Appearance Clear Clear Urine Color Dark Yellow Yellow Urine Odor Strong Exam: Sleeping Head Head exam: Present atraumatic and normal inspection Eye Eye exam: Present normal appearance ENT ENT exam: Present mucous membranes moist, normal exam and normal external ear exam Additional comments: Nasal cannula in place Neck Neck exam: Present normal inspection Respiratory Respiratory exam: Present normal respiratory exam Cardiovascular Cardiovascular exam: Present normal rate and rhythm GI/Abdominal GI/Abdominal exam: Present normal bowel sounds Extremities Exam Extremities exam: Present normal inspection and tenderness; Absent full ROM Additional comments: Right lateral hip tenderness to palpation. Active and passive ROMs limited by pain Back Exam Back exam: Present normal inspection Neurological Exam Additional comments: Sleeping Skin Skin exam: Present intact and warm OBJ DATA Labs 10/03/22 05:18 10/03/22 05:18 Labs: Abnormal Lab Results 10/03/22 10/03/22 10/03/22 05:18 05:18 05:18 WBC RBC 3.98 L Hgb 12.0 L Hct 36.9 L RDW 14.9 H Immature Gran % (Auto) 1.1 H Lymph % (Auto) [place] # (Auto) 1.21 H Immature Gran # 0.11 H Absolute Neutrophils PT 22.1 H INR 1.9 H POC Chloride Chloride 109 H Anion Gap 7.0 L POC BUN BUN 26 H Glucose 118 H POC Glucose Hemoglobin A1c Calcium 7.7 L POC WB Ioniz Calcium Total Protein 5.7 L Albumin 3.1 L Ur Oxycodone Screen 10/02/22 10/02/22 10/02/22 05:54 05:54 05:54 WBC 12.5 H RBC 4.32 L Hgb 12.8 L Hct 38.7 L RDW Immature Gran % (Auto) Lymph % (Auto) [place] # (Auto) 1.21 H Immature Gran # 0.06 H Absolute Neutrophils 8.32 H PT 22.3 H INR 1.9 H POC Chloride Chloride Anion Gap POC BUN BUN Glucose 133 H POC Glucose Hemoglobin A1c 7.1 H Calcium 8.1 L POC WB Ioniz Calcium Total Protein Albumin Ur Oxycodone Screen 10/01/22 10/01/22 10/01/22 17:42 16:55 16:54 WBC 13.2 H RBC 4.23 L Hgb 12.6 L Hct 38.1 L RDW 14.6 H Immature Gran % (Auto) 0.9 H Lymph % (Auto) 14.1 L [place] # (Auto) 1.08 H Immature Gran # 0.12 H Absolute Neutrophils 9.87 H PT 23.5 H INR 2.0 H POC Chloride 109 H Chloride Anion Gap POC BUN 21 H BUN Glucose POC Glucose 174 H Hemoglobin A1c Calcium POC WB Ioniz Calcium 1.10 L Total Protein Albumin Ur Oxycodone Screen 10/01/22 03:10 WBC RBC Hgb Hct RDW Immature Gran % (Auto) Lymph % (Auto) [place] # (Auto) Immature Gran # Absolute Neutrophils PT INR POC Chloride Chloride Anion Gap POC BUN BUN Glucose POC Glucose Hemoglobin A1c Calcium POC WB Ioniz Calcium Total Protein Albumin Ur Oxycodone Screen Suspect positive A Meds: Medications Acetaminophen (Acetaminophen 325 Mg Tablet) 650 mg PO Q6HP PRN; Protocol PRN Reason: Per Pain Protocol/Fever > 101 Albuterol Sulfate (Albuterol Sulfate 60 Puff Inhaler) 2 puff INH Q4HP PRN PRN Reason: shortness of breath or wheezing Albuterol/Ipratropium (Ipratropium/Albuterol 3 Ml Ampul.Neb) 3 ml NEB Q4HRT PRN PRN Reason: Wheezing Atorvastatin Calcium (Atorvastatin 40 Mg Tablet) 40 mg PO QDAY [facility] Last Admin: 10/03/22 08:01 Dose: 40 mg Ceftriaxone Sodium (Ceftriaxone 1 Gm Vial) 1 gm IV Q24H [facility]; Protocol Last Admin: 10/03/22 08:00 Dose: 1 gm Cholestyramine Resin (Cholestyramine/Aspartame 4 Gm Powd.Pack) 4 gm PO BID@0700,1900 [facility] Last Admin: 10/03/22 07:09 Dose: Not Given Dextrose (Dextrose 50% 50 Ml Vial) 0 ml IV UD PRN PRN Reason: Per Sliding Scale Diagnostic Test (Pha) (Accu-Chek 1 Each Strip) 1 each FS ACHS [facility] Last Admin: 10/03/22 07:09 Dose: 1 each Docusate Sodium (Docusate Sodium 100 Mg Capsule) 100 mg PO BID [facility] Last Admin: 10/03/22 08:01 Dose: Not Given Fluoxetine HCl (Fluoxetine Hcl 20 Mg Capsule) 20 mg PO QDAY [facility] Last Admin: 10/03/22 08:01 Dose: 20 mg Glucose (Dextrose 31 Gm Oral.Susp) 15 gm PO PRN PRN PRN Reason: Hypoglycemia Hydralazine HCl (Hydralazine 20 Mg/Ml Vial) 10 mg IV Q4-6HP PRN PRN Reason: Hypertension Hydromorphone HCl (Hydromorphone 1 Mg/Ml Syringe) 1 mg IV Q4HP PRN; Protocol PRN Reason: Per Pain Protocol Last Admin: 10/03/22 06:49 Dose: 1 mg Sodium Chloride (Sodium Chloride 0.9%) 1,000 mls @ 100 mls/hr IV .Q10H [facility] Last Admin: 10/03/22 05:32 Dose: Not Given Azithromycin 500 mg/ Dextrose 250 mls @ 250 mls/hr IV Q24H [facility]; Protocol Stop: 10/04/22 15:59 Last Infusion: 10/03/22 09:05 Dose: Infused Insulin Glargine (Insulin Glargine, Human 1 Unit/0.01 Ml) 10 unit SQ QDAY [facility] Last Admin: 10/03/22 08:01 Dose: 10 units Insulin Human Lispro (Insulin Lispro 1 Unit/0.01 Ml Unit) 0 unit SQ [facility]; Protocol Last Admin: 10/03/22 07:11 Dose: Not Given Melatonin (Melatonin 3 Mg Tablet) 3 mg PO QHS [facility] Last Admin: 10/02/22 20:12 Dose: 3 mg Metoprolol Succinate (Metoprolol Succinate 25 Mg Tab.Xl.24h) 25 mg PO QDAY [facility] Last Admin: 10/03/22 08:01 Dose: 25 mg Nitroglycerin (Nitroglycerin 0.4 Mg Tab.Subl) 0.4 mg SL Q5M PRN PRN Reason: Chest Pain Ondansetron HCl (Ondansetron 4 Mg/2 Ml Vial) 4 mg IV Q6HP PRN PRN Reason: Nausea And Vomiting Last Admin: 10/01/22 21:15 Dose: 4 mg Oxycodone HCl (Oxycodone Ir 5 Mg Tablet) 10 mg PO Q4HP PRN; Protocol PRN Reason: Per Pain Protocol Last Admin: 10/03/22 08:07 Dose: 10 mg Senna (Sennosides 1 Tablet) 2 tab PO [facility] Last Admin: 10/02/22 20:11 Dose: 2 tab Sodium Chloride (0.9 % Sodium Chloride 10 Ml Syringe) 10 ml IV Q8 [facility] Last Admin: 10/03/22 06:49 Dose: 10 ml Trazodone HCl (Trazodone Hcl 50 Mg Tablet) 50 mg PO HSP PRN PRN Reason: Insomnia A/P Assessment and plan (1) Closed hip fracture requiring operative repair: Status: Acute Qualifiers: Encounter type: initial encounter (2) COPD (chronic obstructive pulmonary disease): Status: Chronic (3) Hyperlipidemia: Status: Acute (4) DVT, bilateral lower limbs: Status: Acute (5) Depression: Status: Acute (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 Right hip intertrochanteric fracture: Stays in inpatient med surg Consult orthopedic surgeon Dr. Sanders for surgical fixation, surgery scheduled at 4pm today Daily INR while holding Coumadin Bedrest NPO after midnight with IV fluid Tylenol Oxycodone Dilaudid IV Physical therapy evaluation and treatment 2. h/o DVT: Holding Coumadin in preparation of the planned surgery 3. h/o CAD: Holding Aspirin and Plavix in preparation of the planned surgery Metoprolol succinate ER Lipitor 4. Dyslipidemia: Lipitor 5. T2DM: HgA1c 7.1 Insulin Glargine 10 unit daily Insulin Lispro SSI AC HS Accu Check AC HS Hypoglycemia protocol Diabetic diet (NPO after midnight) 6. Depression: Fluoxetine 7. h/o COPD: DuoNEB NEB PRN shortness of breath or wheezing 8. Aspiration pneumonia vs aspiration pneumonitis: Supplemental oxygen therapy Rocephin Zithromax Repeat CXR on 10/03 cbc w/ auto diff in the morning to trend WBC GI ppx: not currently indicated DVT ppx: SCDs Code status: Full Prognosis: guarded Disposition: inpatient med surg Time Spent With Patient Time: Total time spent is greater than 50% in coordination of care (as documented) at patient's floor/unit and/or counseling patient: Subsequent: Total time with patient: 35 - 49 minutes QUALITY VTE Deep Vein Thrombosis/Pulmonary Embolism Present on Admission: Yes
--- NOTE | 2022-10-03 13:17 | XRay Report ---
CLINICAL INFORMATION: Cough COMPARISON: 10/02/2022 TECHNIQUE: PA and Lateral views FINDINGS: The heart size, mediastinum and pulmonary vessels are unremarkable. Mall patchy bibasilar infiltrates are slightly improved from yesterday. There are no effusions. The bones and soft tissues are within normal limits. IMPRESSION: Small patchy bibasilar infiltrates-slight improvement. Consider aspiration or infection Interpreted and Authenticated by: Crow Rosario 10/03/22
[2022-10-03] MEDS: SENNOSIDES 1 TABLET PO SCH (20:20)
[2022-10-03] MEDS: MELATONIN 3 MG TABLET PO SCH (20:20)
[2022-10-04] MEDS: 0.9 % SODIUM CHLORIDE 1,000 ML IV SCH ×2 (00:11→09:52)
[2022-10-04] MEDS: oxyCODONE IR 5 MG TABLET PO PRN ×3 (03:37→16:44)
[2022-10-04] MEDS: 0.9 % SODIUM CHLORIDE 10 ML SYRINGE IV SCH ×3 (05:17→20:45)
[2022-10-04 07:08] LABS: INR 1.6 (0.9-1.1); Prothrombin Time 19.2 sec (11.9-14.5)
[2022-10-04 07:24] LABS: ALT/SGPT 18 U/L (<40); AST/SGOT 20 U/L (<40); Albumin 2.9 gm/dL (3.2-5.2); Alkaline Phosphatase 80 U/L (39-117); Bilirubin,Total 0.6 mg/dL (0.1-1.0); Blood Urea Nitrogen 23 mg/dL (8-23); Calcium 8.2 mg/dL (8.6-10.4); Carbon Dioxide 25 mmol/L (22-30); Chloride 108 mmol/L (96-108); Glomerular Filtration Rate 76; Glucose 126 mg/dL (70-105)
[2022-10-04] MEDS: INSULIN LISPRO 1 UNIT/0.01 ML UNIT SQ SCH ×4 (07:30→20:45)
[2022-10-04 07:31] LABS: Basophils # (Auto) 0.07 K/mcL (0.00-0.30); Basophils % (Auto) 0.7 % (0.0-2.0); Eosinophils # (Auto) 0.61 K/mcL (0.00-0.70); Eosinophils % (Auto) 5.9 % (0.0-7.0); Hematocrit 35.6 % (40.1-51.0); Hemoglobin 11.2 g/dL (13.7-17.5); Lymphocytes # (Auto) 2.43 K/mcL (1.50-4.80); Lymphocytes % (Auto) 23.6 % (15.5-49.0); Mean Cell Volume 93.9 fL (80.0-100.0); Mean Corpuscular HGB Conc 31.5 g/dL (31.0-36.0); Monocytes # (Auto) 1.05 K/mcL (0.10-0.90); Monocytes % (Auto) 10.2 % (1.0-12.0); Platelet Count 133 K/mcL (140-440); RBC 3.79 M/mcL (4.63-6.08); Red Cell Distribution Width 14.7 % (11.5-14.5); WBC 10.3 K/mcL (4.5-11.0)
[2022-10-04] MEDS: CHOLESTYRAMINE/ASPARTAME 4 GM POWD.PACK PO SCH ×2 (07:31→19:20)
[2022-10-04] MEDS: DOCUSATE SODIUM 100 MG CAPSULE PO SCH ×2 (08:34→20:45)
[2022-10-04] MEDS: INSULIN GLARGINE, HUMAN 1 UNIT/0.01 ML SQ SCH (08:36)
[2022-10-04] MEDS: ATORVASTATIN 40 MG TABLET PO SCH (08:36)
[2022-10-04] MEDS: METOPROLOL SUCCINATE 25 MG TAB.XL.24H PO SCH (08:44)
[2022-10-04] MEDS: AZITHROMYCIN 500 MG in DEXTROSE 5% IN WATER 250 ML IV SCH (08:44)
[2022-10-04] MEDS: FLUoxetine HCL 20 MG CAPSULE PO SCH (08:44)
[2022-10-04] MEDS: cefTRIAXone 1 GM VIAL IV SCH (08:51)
--- NOTE | 2022-10-04 10:53 | Internal Med Progress Note ---
SUBJECTIVE Subjective Patient information: Note initiated : 10/04/22 at 10:52 am Service Date, if different from initiated Date: [] Patient: Wm Turner 67 y/o M admitted on 10/01/22 for Hip pain; RT hip fx. Chief Complaint: [] Interval history: Mr. Turner is a 67 year old M history of DVT, type 2 diabetes mellitus, depression, COPD, CAD, dyslipidemia, presenting with 1 day history of cute onset 4. Today at around 1 PM when patient was taking shower in his own bathroom, he fell. He stated that he did not lose consciousness. However, he does not remember much details about the accident. Right now he is complaining of severe constant right hip pain without radiations. He denies any chest pain or palpitations. He denies any headache. He denies any confusions. He denies any lethargy. He denies any shortness of breath cough or respiratory wheezings. X-ray showing right hip intertrochanteric fracture. CT of the head without contrast did not show any acute intracranial pathologies. Chest x-ray does not show any intra thoracic pathologies. Admission request is called for right hip fracture. INR 2.0 patient is on Coumadin. 10/02: INR 1.9 this morning. Patient is complaining of moderate right hip pain. He denies any shortness of breath. Orthopedic surgery scheduled at 4 PM today. Keep the patient n.p.o. with IV fluid for the time being. Continue narcotics as needed for pain control. Physical therapy evaluation and treatment for placement evaluation after the surgery. Overall condition guarded. Stay in Med Surg. 10/03: INR 1.9 this morning. WBC 10.4 this morning. Afebrile overnight. On 5L/min oxygen. All cultures no growth to date. Patient has been NPO since midnight. Will touch base with anesthesia team and Dr. Sanders regarding the timing for surgery. Keep the patient n.p.o. until decision is made. Continue antibiotics with Rocephin and azithromycin for aspiration pneumonia/pneumonitis. Follow-up repeat chest x-ray result. Continue supplemental oxygen therapy. Physical therapy evaluation and treatment for placement planning after the surgery. Overall condition guarded. Stay in [facility]. 10/04: On 3L/min oxygen this morning. INR 1.6. Fasting glucose 126. Patient has been NPO since midnight. Continue supplemental oxygen, Rocephin, and azithromycin for aspiration pneumonia versus pneumonitis while monitoring for culture results. Surgery for right hip fracture by Dr. Garvey today. Physical therapy evaluation and treatment after the surgery for placement pending. Overall condition guarded. Stay in [facility]. Constitutional Vitals: Vital Signs Temp Pulse Resp BP Pulse Ox O2 Del Method O2 Flow Rate 36.8 C 69 20 167/84 94 Nasal Cannula 3 10/04/22 07:44 10/04/22 07:44 10/04/22 07:55 10/04/22 07:44 10/04/22 07:55 10/04/22 07:55 10/04/22 07:55 Period Temp Pulse Resp BP Sys/Lisa Pulse Ox O2 Del Method O2 Flow Rate Last 24 Hr 36.6 C-36.8 C 54-79 14-20 121-173/61-84 91-96 Nasal Cannula- Nasal Cannula 3-5 Intake and Output 10/03/22 10/04/22 10/04/22 19:59 03:59 11:59 Intake Total 2215 231 4458 Output Total 1 475 500 Balance 1419 -75 718 Weight 113.761 kg Intake & Output: Intake & Output 10/03/22 10/04/22 10/04/22 19:59 03:59 11:59 Intake Total 0389 535 2084 Output Total 1 475 500 Balance 1419 -75 718 Weight 113.761 kg Intake: IV 1000 1218 Sodium Chloride 0.9% 1,000 ml @ 1000 968 100 mls/hr IV .Q10H [facility] Rx#: [id number] Zithromax 500 mg In Dextrose 5% 250 in Water 250 ml @ 250 mls/hr IV Q24H [facility] Rx#:[id number] Oral 420 400 Output: Void Amount 0 475 500 # of times incontinent of urine 1 Other: Meal Dinner Percent of Meal Consumed 50% Feeding Ability Independent Urine Appearance Clear Clear Urine Color Yellow Yellow Urine Odor Normal # Bowel Movements 0 Exam: Sleeping Head Head exam: Present atraumatic and normal inspection Eye Eye exam: Present normal appearance ENT ENT exam: Present mucous membranes moist, normal exam and normal external ear exam Additional comments: Nasal cannula in place Neck Neck exam: Present normal inspection Respiratory Respiratory exam: Present normal respiratory exam Cardiovascular Cardiovascular exam: Present normal rate and rhythm GI/Abdominal GI/Abdominal exam: Present normal bowel sounds Extremities Exam Extremities exam: Present normal inspection and tenderness; Absent full ROM Additional comments: Right hip active and passive ROMs limited by pain Back Exam Back exam: Present normal inspection Neurological Exam Neurological exam: Present alert and oriented X3 Skin Skin exam: Present intact and warm OBJ DATA Labs 10/04/22 05:13 10/04/22 05:13 Labs: Abnormal Lab Results 10/04/22 10/04/22 10/04/22 05:13 05:13 05:13 WBC RBC 3.79 L Hgb 11.2 L Hct 35.6 L RDW 14.7 H Plt Count 133 L Immature Gran % (Auto) 1.6 H Lymph % (Auto) Jack # (Auto) 1.05 H Immature Gran # 0.17 H Absolute Neutrophils PT 19.2 H INR 1.6 H POC Chloride Chloride Anion Gap POC BUN BUN Glucose 126 H POC Glucose Hemoglobin A1c Calcium 8.2 L POC WB Ioniz Calcium Total Protein Albumin 2.9 L Ur Oxycodone Screen 10/03/22 10/03/22 10/03/22 05:18 05:18 05:18 WBC RBC 3.98 L Hgb 12.0 L Hct 36.9 L RDW 14.9 H Plt Count Immature Gran % (Auto) 1.1 H Lymph % (Auto) Jack # (Auto) 1.21 H Immature Gran # 0.11 H Absolute Neutrophils PT 22.1 H INR 1.9 H POC Chloride Chloride 109 H Anion Gap 7.0 L POC BUN BUN 26 H Glucose 118 H POC Glucose Hemoglobin A1c Calcium 7.7 L POC WB Ioniz Calcium Total Protein 5.7 L Albumin 3.1 L Ur Oxycodone Screen 10/02/22 10/02/22 10/02/22 05:54 05:54 05:54 WBC 12.5 H RBC 4.32 L Hgb 12.8 L Hct 38.7 L RDW Plt Count Immature Gran % (Auto) Lymph % (Auto) Jack # (Auto) 1.21 H Immature Gran # 0.06 H Absolute Neutrophils 8.32 H PT 22.3 H INR 1.9 H POC Chloride Chloride Anion Gap POC BUN BUN Glucose 133 H POC Glucose Hemoglobin A1c 7.1 H Calcium 8.1 L POC WB Ioniz Calcium Total Protein Albumin Ur Oxycodone Screen 10/01/22 10/01/22 10/01/22 17:42 16:55 16:54 WBC 13.2 H RBC 4.23 L Hgb 12.6 L Hct 38.1 L RDW 14.6 H Plt Count Immature Gran % (Auto) 0.9 H Lymph % (Auto) 14.1 L Jack # (Auto) 1.08 H Immature Gran # 0.12 H Absolute Neutrophils 9.87 H PT 23.5 H INR 2.0 H POC Chloride 109 H Chloride Anion Gap POC BUN 21 H BUN Glucose POC Glucose 174 H Hemoglobin A1c Calcium POC WB Ioniz Calcium 1.10 L Total Protein Albumin Ur Oxycodone Screen 10/01/22 03:10 WBC RBC Hgb Hct RDW Plt Count Immature Gran % (Auto) Lymph % (Auto) Jack # (Auto) Immature Gran # Absolute Neutrophils PT INR POC Chloride Chloride Anion Gap POC BUN BUN Glucose POC Glucose Hemoglobin A1c Calcium POC WB Ioniz Calcium Total Protein Albumin Ur Oxycodone Screen Suspect positive A Meds: Medications Acetaminophen (Acetaminophen 325 Mg Tablet) 650 mg PO Q6HP PRN; Protocol PRN Reason: Per Pain Protocol/Fever > 101 Albuterol Sulfate (Albuterol Sulfate 60 Puff Inhaler) 2 puff INH Q4HP PRN PRN Reason: shortness of breath or wheezing Albuterol/Ipratropium (Ipratropium/Albuterol 3 Ml Ampul.Neb) 3 ml NEB Q4HRT PRN PRN Reason: Wheezing Atorvastatin Calcium (Atorvastatin 40 Mg Tablet) 40 mg PO QDAY [facility] Last Admin: 10/04/22 08:36 Dose: Not Given Ceftriaxone Sodium (Ceftriaxone 1 Gm Vial) 1 gm IV Q24H [facility]; Protocol Last Admin: 10/04/22 08:51 Dose: 1 gm Cholestyramine Resin (Cholestyramine/Aspartame 4 Gm Powd.Pack) 4 gm PO BID@0700,1900 [facility] Last Admin: 10/04/22 07:31 Dose: Not Given Dextrose (Dextrose 50% 50 Ml Vial) 0 ml IV UD PRN PRN Reason: Per Sliding Scale Diagnostic Test (Pha) (Accu-Chek 1 Each Strip) 1 each FS ACHS [facility] Last Admin: 10/04/22 07:30 Dose: 1 each Docusate Sodium (Docusate Sodium 100 Mg Capsule) 100 mg PO BID [facility] Last Admin: 10/04/22 08:34 Dose: Not Given Fluoxetine HCl (Fluoxetine Hcl 20 Mg Capsule) 20 mg PO QDAY [facility] Last Admin: 10/04/22 08:44 Dose: 20 mg Glucose (Dextrose 31 Gm Oral.Susp) 15 gm PO PRN PRN PRN Reason: Hypoglycemia Hydralazine HCl (Hydralazine 20 Mg/Ml Vial) 10 mg IV Q4-6HP PRN PRN Reason: Hypertension Hydromorphone HCl (Hydromorphone 1 Mg/Ml Syringe) 1 mg IV Q4HP PRN; Protocol PRN Reason: Per Pain Protocol Last Admin: 10/03/22 19:12 Dose: 1 mg Sodium Chloride (Sodium Chloride 0.9%) 1,000 mls @ 100 mls/hr IV .Q10H [facility] Last Admin: 10/04/22 09:52 Dose: 100 mls/hr Azithromycin 500 mg/ Dextrose 250 mls @ 250 mls/hr IV Q24H [facility]; Protocol Stop: 10/04/22 15:59 Last Infusion: 10/04/22 09:45 Dose: Infused Insulin Glargine (Insulin Glargine, Human 1 Unit/0.01 Ml) 10 unit SQ QDAY [facility] Last Admin: 10/04/22 08:36 Dose: Not Given Insulin Human Lispro (Insulin Lispro 1 Unit/0.01 Ml Unit) 0 unit SQ ACHS [facility]; Protocol Last Admin: 10/04/22 07:30 Dose: Not Given Melatonin (Melatonin 3 Mg Tablet) 3 mg PO QHS [facility] Last Admin: 10/03/22 20:20 Dose: 3 mg Metoprolol Succinate (Metoprolol Succinate 25 Mg Tab.Xl.24h) 25 mg PO QDAY [facility] Last Admin: 10/04/22 08:44 Dose: 25 mg Nitroglycerin (Nitroglycerin 0.4 Mg Tab.Subl) 0.4 mg SL Q5M PRN PRN Reason: Chest Pain Ondansetron HCl (Ondansetron 4 Mg/2 Ml Vial) 4 mg IV Q6HP PRN PRN Reason: Nausea And Vomiting Last Admin: 10/01/22 21:15 Dose: 4 mg Oxycodone HCl (Oxycodone Ir 5 Mg Tablet) 10 mg PO Q4HP PRN; Protocol PRN Reason: Per Pain Protocol Last Admin: 10/04/22 08:44 Dose: 10 mg Senna (Sennosides 1 Tablet) 2 tab PO HS [facility] Last Admin: 10/03/22 20:20 Dose: 2 tab Sodium Chloride (0.9 % Sodium Chloride 10 Ml Syringe) 10 ml IV Q8 [facility] Last Admin: 10/04/22 05:17 Dose: 10 ml Trazodone HCl (Trazodone Hcl 50 Mg Tablet) 50 mg PO HSP PRN PRN Reason: Insomnia A/P Assessment and plan (1) Closed hip fracture requiring operative repair: Status: Acute Qualifiers: Encounter type: initial encounter (2) COPD (chronic obstructive pulmonary disease): Status: Chronic (3) Hyperlipidemia: Status: Acute (4) DVT, bilateral lower limbs: Status: Acute (5) Depression: Status: Acute (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 Right hip intertrochanteric fracture: Stays in inpatient med surg Consult orthopedic surgeon Dr. Garvey for surgical fixation Daily INR while holding Coumadin Bedrest NPO after midnight with IV fluid Tylenol Oxycodone Dilaudid IV Physical therapy evaluation and treatment 2. h/o DVT: Holding Coumadin in preparation of the planned surgery 3. h/o CAD: Holding Aspirin and Plavix in preparation of the planned surgery Metoprolol succinate ER Lipitor 4. Dyslipidemia: Lipitor 5. T2DM: HgA1c 7.1 Insulin Glargine 10 unit daily Insulin Lispro SSI AC HS Accu Check AC HS Hypoglycemia protocol Diabetic diet (NPO after midnight) 6. Depression: Fluoxetine 7. h/o COPD: DuoNEB NEB PRN shortness of breath or wheezing 8. Aspiration pneumonia vs aspiration pneumonitis: Supplemental oxygen therapy Rocephin Zithromax cbc w/ auto diff in the morning to trend WBC GI ppx: not currently indicated DVT ppx: SCDs Code status: Full Prognosis: guarded Disposition: inpatient med surg Time Spent With Patient Time: Total time spent is greater than 50% in coordination of care (as documented) at patient's floor/unit and/or counseling patient: Subsequent: Total time with patient: 35 - 49 minutes QUALITY VTE Deep Vein Thrombosis/Pulmonary Embolism Present on Admission: Yes
[2022-10-04] MEDS ORDERED: ceFAZolin 2 GM in DEXTROSE 5% IN WATER 50 ML IV SCH (11:30)
[2022-10-04] MEDS ORDERED: ONDANSETRON 4 MG/2 ML VIAL IV PRN (12:16)
[2022-10-04] MEDS ORDERED: HYDROmorphone 0.5 MG/0.5 ML SYRINGE IV PRN (12:16)
[2022-10-04] MEDS ORDERED: NALOXONE HCL 0.4 MG/ML VIAL IV PRN (12:16)
[2022-10-04] MEDS ORDERED: IPRATROPIUM/ALBUTEROL 3 ML AMPUL.NEB NEB PRN (12:16)
[2022-10-04] MEDS ORDERED: ACETAMINOPHEN 1,000 MG/100 ML BAG IV ONE (12:16)
[2022-10-04] MEDS ORDERED: METHOCARBAMOL 1,000 MG/10 ML VIAL IV PRN (12:16)
[2022-10-04] MEDS ORDERED: fentaNYL 100 MCG/2 ML VIAL IV PRN (12:16)
--- NOTE | 2022-10-04 12:41 | Brief Operative Note ---
Brief Operative Note Date of procedure: 10/04/22 Pre-op diagnosis: right basicervicle femoral neck fracture Post-op diagnosis: same Procedure: operative fixation of right basicervical femoral neck fracture Grafts/Implants: Yes Anesthesia: GETA Findings: femroal neck fracture Complications: none Surgeon: Stan Garvey Fish Cutting Machine Operator: Spike Hdz Estimated blood loss (cc): 30 Tourniquet Time (Minutes): 0 Specimens Removed/Pathology: none sent Condition: stable Disposition: PACU
[2022-10-04] MEDS ORDERED: BENZOCAINE/MENTHOL 1 LOZENGE PO PRN (12:47)
--- NOTE | 2022-10-04 13:11 | Operative Note ---
DATE OF OPERATION: 10/04/2022 PREOPERATIVE DIAGNOSIS: Right basicervical femoral neck fracture. POSTOPERATIVE DIAGNOSIS: Right basicervical femoral neck fracture. PROCEDURE PERFORMED: Operative fixation of right basicervical femoral neck fracture with a cephalomedullary implant. GROOVER AND STRIPER OPERATOR: Stan Garvey M.D. GROOVER AND STRIPER OPERATOR: Spike Hdz PA-C. The assistance of the PA was required for the safe and efficient completion of the entire case. The expertise and technical skill of this provider was required throughout the case. The PA assisted with preoperative coordination, intraoperative retraction, wound closure, dressing and splint application, as well as postoperative documentation and care coordination. ANESTHESIA: General. INTRAVENOUS FLUIDS: 500 mL lactated Ringer's. ESTIMATED BLOOD LOSS: Less than 50 mL. TOURNIQUET TIME: Not applicable. ANTIBIOTICS: 2 grams Ancef. IMPLANTS: A short [place] gamma nail with a distal interlock screw and a 105 lag screw. INTRAOPERATIVE COMPLICATIONS: None apparent. PATHOLOGY/LAB: None. INDICATIONS FOR PROCEDURE: The patient is a 67-year-old male who was admitted for right hip pain. However, he had a significantly elevated INR, but this is improved. He also had aspiration pneumonia which is being treated with antibiotics. The patient initially consulted with Dr. Sanders. However, given availability, I offered to perform operative fixation of the fracture itself. I discussed what I would do to include a cephalomedullary nail. They have discussed with them previously, and he does understand this concept. I discussed risks of surgery to include infection, bleeding. Specifically for him would be blood clots and pulmonary embolism, given his history and currently on Coumadin. He understands, but does want to proceed. DESCRIPTION OF PROCEDURE: Patient was met in the preoperative holding area where site was verified and marked with the patient's input. He was then taken back to the operating room where he underwent successful general anesthesia. He was placed on the [place] table with the right lower extremity placed in a padded boot and the left lower extremity was placed into the well-leg anglin. The right hip was reduced with inline traction and slight rotation. Radiographs were taken AP and lateral of the hip, which demonstrated adequate reduction. At this point, the right hip was prepped and draped in the usual sterile fashion with ChloraPrep. Surgical timeout was performed to verify patient identity, correct procedure being performed, and correct extremity being operated on. Everybody was in agreement. We localized the tip of the greater trochanter and 2 fingerbreadths proximal to this I made a stab incision. We placed a guidewire at the tip of the greater trochanter on AP and at the central aspect on the lateral. Once verified, we placed a guidewire intramedullary. I enlarged my incision over the skin itself and then a clean 15 blade down through the fascia through the adductors to place a soft tissue protector. Utilizing an open reamer, we gained entry into the canal. Over this, we placed a short gamma nail. I placed this so that the screw was in the middle to the inferior aspect of the neck. He does have a bit of varus neck and the pin stayed a bithigher in the head than it would appear in the neck; however, it was very close to the center position on the AP. It was in the center position on lateral. I felt this was overall adequate. This was then measured, drilled the outer cortex. After drilling and placing the guidewire, we drilled with the 105 [address] drill. I did place an anti-rotation wire into the femoral head to prevent rotation of the fracture with placement of the screw. The screw was then placed. I did countersink it a bit and then compressed the fracture itself with no traction on the leg itself. The set screw was placed, backed off just slightly, but it allowed for no rotation. The distal interlock was placed. The guide was removed. Final radiographs, AP and lateral hip as well as the interlock was completed, demonstrating maintenance of the reduction and overall adequate position. At this point, the wound was copiously irrigated with IrriSept and normal irrigation. I did place 1 gram of vancomycin powder in the proximal wound. The fascia was closed with 0 Vicryl in running fashion. Subcutaneous tissue in layered fashion with 3-0 Vicryl and jovani for the skin. The percutaneous holes were closed with 3-0 nylon and jovani. The hip was cleaned and dried. We placed a silver dressing. The patient awoke from anesthesia and was transferred to PACU in stable condition. POSTOPERATIVE PLAN: The patient will be admitted back to the floor for postoperative recovery. He can be 50% weightbearing for the first 4 weeks and then progress weightbearing as long as there is no change. LEONIE:song Job ID: [id number] Doc ID: [id number] Stan Garvey MD MTDD
[2022-10-04] MEDS ORDERED: ACETAMINOPHEN 1,000 MG/100 ML BAG IV SCH (13:30)
--- NOTE | 2022-10-04 14:04 | XRay Report ---
CLINICAL INFORMATION: s/p orif femoral neck fx COMPARISON: Preoperative x-rays 10/01/2022 FINDINGS: Right intertrochanteric fracture has been reduced to anatomic alignment and is now transfixed by gamma nail. Both hip joints are normal. IMPRESSION: ORIF right infrahilar fracture anatomic alignment Interpreted and Authenticated by: Crow Rosario 10/04/22
[2022-10-04] MEDS: LACTATED RINGERS 1,000 ML IV SCH (14:10)
[2022-10-04] MEDS: WARFARIN 3 MG TABLET PO SCH (14:10)
[2022-10-04] MEDS: HYDROmorphone 1 MG/ML SYRINGE IV PRN (14:14)
[2022-10-04] MEDS: IPRATROPIUM/ALBUTEROL 3 ML AMPUL.NEB NEB PRN (14:15)
--- NOTE | 2022-10-04 18:17 | EKG ---
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
[2022-10-04] MEDS: SENNOSIDES 1 TABLET PO SCH (20:45)
[2022-10-04] MEDS: MELATONIN 3 MG TABLET PO SCH (20:45)
[2022-10-04] MEDS: ACETAMINOPHEN 500 MG TABLET PO SCH ×2 (21:46→22:00)
[2022-10-05] MEDS: LACTATED RINGERS 1,000 ML IV SCH ×3 (03:27→20:32)
--- NOTE | 2022-10-05 04:43 | XRay Report ---
CLINICAL INFORMATION: hip nailing procedure COMPARISON: None. FINDINGS: Multiple digital images from the OR show intertrochanteric fracture restoring anatomic alignment transfixed by gamma nail. Total fluoroscopy time 0.9 minutes IMPRESSION: ORIF intertrochanteric fracture right hip anatomic alignment. Total fluoroscopy time 0.9 minutes. Interpreted and Authenticated by: Crow Rosario 10/05/22
[2022-10-05] MEDS: 0.9 % SODIUM CHLORIDE 10 ML SYRINGE IV SCH ×3 (05:15→21:25)
[2022-10-05] MEDS: ACETAMINOPHEN 500 MG TABLET PO SCH ×2 (05:21→14:15)
--- NOTE | 2022-10-05 05:58 | Orthopedic Progress Note ---
SUBJECTIVE Subjective Patient information: Note initiated : 10/05/22 at 5:55 am Service Date, if different from initiated Date: [] Patient: Wm Turner 67 y/o M admitted on 10/01/22 for Hip pain; RT hip fx. Chief Complaint: [No acute issues overnight. Pain adequately controlled.] Constitutional Vitals: Vital Signs Temp Pulse Resp BP Pulse Ox O2 Del Method O2 Flow Rate 97.9 F 72 18 156/73 96 Nasal Cannula 3 10/05/22 03:40 10/05/22 03:40 10/05/22 03:40 10/05/22 03:40 10/05/22 03:40 10/05/22 03:40 10/05/22 03:40 Period Temp Pulse Resp BP Sys/Lisa Pulse Ox O2 Del Method O2 Flow Rate Last 24 Hr 97.9 F-99.1 F 56-84 12-21 111-167/56-100 81-98 Nasal Cannula- Oxymask 2-6 Intake and Output 10/04/22 10/05/22 10/05/22 19:59 03:59 11:59 Intake Total 1900 620 Output Total 700 500 150 Balance 1200 120 -150 Weight 263 lb 14.4 oz Intake & Output: Intake & Output 10/04/22 10/05/22 10/05/22 19:59 03:59 11:59 Intake Total 1900 620 Output Total 700 500 150 Balance 1200 120 -150 Weight 263 lb 14.4 oz Intake: IV 1100 Lactated Ringers 1,000 ml @ 75 1000 mls/hr IV .[id number] [facility] Rx#: [id number] Oral 0 620 IV - Manual Only 800 Output: Void Amount 700 500 150 Other: Meal Dinner Percent of Meal Consumed 50% Feeding Ability Independent Urine Appearance Clear Clear Clear Urine Color Light Candace Dark Yellow Dark Yellow Urine Odor Normal Additional findings Additional findings: alert and appropriate right hip: dressing in place with strikethrough at the distal 1/3 region, minimal. Foot is warm well perfused. OBJ DATA Labs 10/04/22 05:13 10/04/22 05:13 Labs: Abnormal Lab Results 10/04/22 10/04/22 10/04/22 05:13 05:13 05:13 WBC RBC 3.79 L Hgb 11.2 L Hct 35.6 L RDW 14.7 H Plt Count 133 L Immature Gran % (Auto) 1.6 H [place] # (Auto) 1.05 H Immature Gran # 0.17 H Absolute Neutrophils PT 19.2 H INR 1.6 H Chloride Anion Gap BUN Glucose 126 H Hemoglobin A1c Calcium 8.2 L Total Protein Albumin 2.9 L 10/03/22 10/03/22 10/03/22 05:18 05:18 05:18 WBC RBC 3.98 L Hgb 12.0 L Hct 36.9 L RDW 14.9 H Plt Count Immature Gran % (Auto) 1.1 H [place] # (Auto) 1.21 H Immature Gran # 0.11 H Absolute Neutrophils PT 22.1 H INR 1.9 H Chloride 109 H Anion Gap 7.0 L BUN 26 H Glucose 118 H Hemoglobin A1c Calcium 7.7 L Total Protein 5.7 L Albumin 3.1 L 10/02/22 10/02/22 10/02/22 05:54 05:54 05:54 WBC 12.5 H RBC 4.32 L Hgb 12.8 L Hct 38.7 L RDW Plt Count Immature Gran % (Auto) [place] # (Auto) 1.21 H Immature Gran # 0.06 H Absolute Neutrophils 8.32 H PT 22.3 H INR 1.9 H Chloride Anion Gap BUN Glucose 133 H Hemoglobin A1c 7.1 H Calcium 8.1 L Total Protein Albumin Meds: Medications Acetaminophen (Acetaminophen 500 Mg Tablet) 1,000 mg PO Q8 [facility]; Protocol Last Admin: 10/05/22 05:21 Dose: 1,000 mg Albuterol Sulfate (Albuterol Sulfate 60 Puff Inhaler) 2 puff INH Q4HP PRN PRN Reason: shortness of breath or wheezing Albuterol/Ipratropium (Ipratropium/Albuterol 3 Ml Ampul.Neb) 3 ml NEB Q4HRT PRN PRN Reason: Wheezing Last Admin: 10/04/22 14:15 Dose: 3 ml Atorvastatin Calcium (Atorvastatin 40 Mg Tablet) 40 mg PO QDAY [facility] Last Admin: 10/04/22 08:36 Dose: Not Given Ceftriaxone Sodium (Ceftriaxone 1 Gm Vial) 1 gm IV Q24H [facility]; Protocol Last Admin: 10/04/22 08:51 Dose: 1 gm Cholestyramine Resin (Cholestyramine/Aspartame 4 Gm Powd.Pack) 4 gm PO BID@0700,1900 [facility] Last Admin: 10/04/22 19:20 Dose: 4 gm Clopidogrel Bisulfate (Clopidogrel 75 Mg Tablet) 75 mg PO QDAY [facility] Dextrose (Dextrose 50% 50 Ml Vial) 0 ml IV UD PRN PRN Reason: Per Sliding Scale Diagnostic Test (Pha) (Accu-Chek 1 Each Strip) 1 each FS [facility] Last Admin: 10/04/22 20:36 Dose: 1 each Docusate Sodium (Docusate Sodium 100 Mg Capsule) 100 mg PO BID [facility] Last Admin: 10/04/22 20:45 Dose: 100 mg Fluoxetine HCl (Fluoxetine Hcl 20 Mg Capsule) 20 mg PO QDAY [facility] Last Admin: 10/04/22 08:44 Dose: 20 mg Glucose (Dextrose 31 Gm Oral.Susp) 15 gm PO PRN PRN PRN Reason: Hypoglycemia Hydralazine HCl (Hydralazine 20 Mg/Ml Vial) 10 mg IV Q4-6HP PRN PRN Reason: Hypertension Hydromorphone HCl (Hydromorphone 1 Mg/Ml Syringe) 1 mg IV Q4HP PRN; Protocol PRN Reason: Per Pain Protocol Last Admin: 10/04/22 14:14 Dose: 1 mg Lactated Ringer's (Lactated Ringers) 1,000 mls @ 75 mls/hr IV .[id number] [facility] Last Admin: 10/05/22 03:27 Dose: 75 mls/hr Insulin Glargine (Insulin Glargine, Human 1 Unit/0.01 Ml) 10 unit SQ QDAY [facility] Last Admin: 10/04/22 08:36 Dose: Not Given Insulin Human Lispro (Insulin Lispro 1 Unit/0.01 Ml Unit) 0 unit SQ [facility]; Protocol Last Admin: 10/04/22 20:45 Dose: 2 units Melatonin (Melatonin 3 Mg Tablet) 3 mg PO QHS [facility] Last Admin: 10/04/22 20:45 Dose: 3 mg Methocarbamol (Methocarbamol 500 Mg Tablet) 500 mg PO TIDP PRN PRN Reason: Muscle Spasm Metoprolol Succinate (Metoprolol Succinate 25 Mg Tab.Xl.24h) 25 mg PO QDAY [facility] Last Admin: 10/04/22 08:44 Dose: 25 mg Nitroglycerin (Nitroglycerin 0.4 Mg Tab.Subl) 0.4 mg SL Q5M PRN PRN Reason: Chest Pain Ondansetron HCl (Ondansetron 4 Mg/2 Ml Vial) 4 mg IV Q6HP PRN PRN Reason: Nausea And Vomiting Last Admin: 10/01/22 21:15 Dose: 4 mg Oxycodone HCl (Oxycodone Ir 5 Mg Tablet) 5 - 10 mg PO Q4HP PRN; Protocol PRN Reason: Pain Last Admin: 10/04/22 16:44 Dose: 10 mg Senna (Sennosides 1 Tablet) 2 tab PO HS [facility] Last Admin: 10/04/22 20:45 Dose: 2 tab Sodium Chloride (0.9 % Sodium Chloride 10 Ml Syringe) 10 ml IV Q8 [facility] Last Admin: 10/05/22 05:15 Dose: 10 ml Throat Lozenges (Benzocaine/Menthol 1 Lozenge) 1 lozenge PO PRN PRN PRN Reason: Sore Throat Trazodone HCl (Trazodone Hcl 50 Mg Tablet) 50 mg PO HSP PRN PRN Reason: Insomnia Warfarin Sodium (Warfarin 3 Mg Tablet) 3 mg PO SuMoWeThFr [facility] Last Admin: 10/04/22 14:10 Dose: 3 mg Warfarin Sodium (Warfarin 3 Mg Tablet) 6 mg PO [facility] Warfarin Sodium (Warfarin Per Pharmacy) 1 order PO [facility] A/P Assessment and plan (1) Closed hip fracture requiring operative repair: Assessment and plan: POD 1 s/p operative fixation of right hip fracture doing well -- 50% weight bearing x4-6 weeks -----PT/OT -- oral pain meds -- restart home dvt prophy meds -- Prophy: IS, scd's, coumadin, mobilization -- DIspo: lives alone, most likely will need SNF. OK to d/c from ortho standpoint. Status: Acute Qualifiers: Encounter type: initial encounter Time Spent With Patient Time: Total time spent is greater than 50% in coordination of care (as documented) at patient's floor/unit and/or counseling patient:
[2022-10-05 06:18] LABS: Basophils # (Auto) 0.05 K/mcL (0.00-0.30); Basophils % (Auto) 0.5 % (0.0-2.0); Eosinophils # (Auto) 0.62 K/mcL (0.00-0.70); Eosinophils % (Auto) 6.3 % (0.0-7.0); Hematocrit 33.2 % (40.1-51.0); Hemoglobin 10.1 g/dL (13.7-17.5); Lymphocytes # (Auto) 1.73 K/mcL (1.50-4.80); Lymphocytes % (Auto) 17.5 % (15.5-49.0); Mean Cell Volume 97.1 fL (80.0-100.0); Mean Corpuscular HGB Conc 30.4 g/dL (31.0-36.0); Mean Platelet Volume 10.8 fL (8.8-12.5); Monocytes # (Auto) 1.09 K/mcL (0.10-0.90); Neutrophils % (Auto) 64.1 % (38.0-78.0); Platelet Count 136 K/mcL (140-440); RBC 3.42 M/mcL (4.63-6.08); Red Cell Distribution Width 14.7 % (11.5-14.5); WBC 9.9 K/mcL (4.5-11.0)
[2022-10-05 06:39] LABS: INR 1.4 (0.9-1.1)
[2022-10-05 06:47] LABS: ALT/SGPT 14 U/L (<40); AST/SGOT 19 U/L (<40); Albumin 2.7 gm/dL (3.2-5.2); Albumin/Globulin Ratio 0.9 (1.0-2.3); Alkaline Phosphatase 65 U/L (39-117); Bilirubin,Total 0.7 mg/dL (0.1-1.0); Blood Urea Nitrogen 19 mg/dL (8-23); Carbon Dioxide 26 mmol/L (22-30); Chloride 106 mmol/L (96-108); Globulin 2.9 gm/dL (2.2-3.7); Glomerular Filtration Rate 87; Glucose 139 mg/dL (70-105)
[2022-10-05] MEDS: CHOLESTYRAMINE/ASPARTAME 4 GM POWD.PACK PO SCH ×2 (07:11→19:35)
[2022-10-05] MEDS: INSULIN LISPRO 1 UNIT/0.01 ML UNIT SQ SCH ×4 (07:31→21:24)
[2022-10-05] MEDS: DOCUSATE SODIUM 100 MG CAPSULE PO SCH ×2 (08:15→21:24)
[2022-10-05] MEDS: INSULIN GLARGINE, HUMAN 1 UNIT/0.01 ML SQ SCH (08:15)
[2022-10-05] MEDS: CLOPIDOGREL 75 MG TABLET PO SCH (08:15)
[2022-10-05] MEDS: ATORVASTATIN 40 MG TABLET PO SCH (08:15)
[2022-10-05] MEDS: METOPROLOL SUCCINATE 25 MG TAB.XL.24H PO SCH (08:16)
[2022-10-05] MEDS: FLUoxetine HCL 20 MG CAPSULE PO SCH (08:16)
[2022-10-05] MEDS: cefTRIAXone 1 GM VIAL IV SCH (08:16)
[2022-10-05] MEDS: HYDROmorphone 1 MG/ML SYRINGE IV PRN (10:10)
[2022-10-05] MEDS ORDERED: HALOPERIDOL LACTATE 5 MG/ML VIAL IM PRN (10:51)
--- NOTE | 2022-10-05 11:11 | Internal Med Progress Note ---
SUBJECTIVE Subjective Patient information: Note initiated : 10/05/22 at 11:03 am Service Date, if different from initiated Date: [] Patient: Wm Turner 67 y/o M admitted on 10/01/22 for Hip pain; RT hip fx. Chief Complaint: [] Interval history: Mr. Turner is a 67 year old M history of DVT, type 2 diabetes mellitus, depression, COPD, CAD, dyslipidemia, presenting with 1 day history of cute onset 4. Today at around 1 PM when patient was taking shower in his own bathroom, he fell. He stated that he did not lose consciousness. However, he does not remember much details about the accident. Right now he is complaining of severe constant right hip pain without radiations. He denies any chest pain or palpitations. He denies any headache. He denies any confusions. He denies any lethargy. He denies any shortness of breath cough or respiratory wheezings. X-ray showing right hip intertrochanteric fracture. CT of the head without contrast did not show any acute intracranial pathologies. Chest x-ray does not show any intra thoracic pathologies. Admission request is called for right hip fracture. INR 2.0 patient is on Coumadin. 10/02: INR 1.9 this morning. Patient is complaining of moderate right hip pain. He denies any shortness of breath. Orthopedic surgery scheduled at 4 PM today. Keep the patient n.p.o. with IV fluid for the time being. Continue narcotics as needed for pain control. Physical therapy evaluation and treatment for placement evaluation after the surgery. Overall condition guarded. Stay in [facility]. 10/03: INR 1.9 this morning. WBC 10.4 this morning. Afebrile overnight. On 5L/min oxygen. All cultures no growth to date. Patient has been NPO since midnight. Will touch base with anesthesia team and Dr. Sanders regarding the timing for surgery. Keep the patient n.p.o. until decision is made. Continue antibiotics with Rocephin and azithromycin for aspiration pneumonia/pneumonitis. Follow-up repeat chest x-ray result. Continue supplemental oxygen therapy. Physical therapy evaluation and treatment for placement planning after the surgery. Overall condition guarded. Stay in [facility]. 10/04: On 3L/min oxygen this morning. INR 1.6. Fasting glucose 126. Patient has been NPO since midnight. Continue supplemental oxygen, Rocephin, and azithromycin for aspiration pneumonia versus pneumonitis while monitoring for culture results. Surgery for right hip fracture by Dr. Garvey today. Physical therapy evaluation and treatment after the surgery for placement pending. Overall condition guarded. Stay in [facility]. 10/05: s/p operative fixation of right hip fracture by Dr. Garvey on 10/04. 50% weight bearing for 4-6 weeks. Patient c/o mild pain right lateral hip. He seems to be anxious, c/o nausea and vomiting. It was reported that patient might have been drinking alcohol, although patient denies and refused beer therapy. CIWA score 12. CIWA protocol for any potential alcohol withdrawal. Nicotine replacement therapy. Narcotics PRN post surgical pain. Physical therapy evaluation and treatment for placement planning. Overall condition guarded. Stay in [facility]. Constitutional Vitals: Vital Signs Temp Pulse Resp BP Pulse Ox O2 Del Method O2 Flow Rate 37.0 C 76 16 155/62 96 Nasal Cannula 3 10/05/22 08:00 10/05/22 08:00 10/05/22 08:00 10/05/22 08:00 10/05/22 08:00 10/05/22 08:00 10/05/22 08:00 Period Temp Pulse Resp BP Sys/Lisa Pulse Ox O2 Del Method O2 Flow Rate Last 24 Hr 36.6 C-37.3 C 56-84 12-21 111-164/56-100 81-98 Nasal Cannula- Oxymask 2-6 Intake and Output 10/04/22 10/05/22 10/05/22 19:59 03:59 11:59 Intake Total 1900 620 Output Total 700 500 150 Balance 1200 120 -150 Weight 119.703 kg Intake & Output: Intake & Output 10/04/22 10/05/22 10/05/22 19:59 03:59 11:59 Intake Total 1900 620 Output Total 700 500 150 Balance 1200 120 -150 Weight 119.703 kg Intake: IV 1100 Lactated Ringers 1,000 ml @ 75 1000 mls/hr IV .[id number] [facility] Rx#: [id number] Oral 0 620 IV - Manual Only 800 Output: Void Amount 700 500 150 Other: Meal Dinner Percent of Meal Consumed 50% Feeding Ability Independent Urine Appearance Clear Clear Clear Urine Color Light Candace Dark Yellow Dark Yellow Urine Odor Normal Exam: Sleeping Head Head exam: Present atraumatic and normal inspection Eye Eye exam: Present normal appearance ENT ENT exam: Present mucous membranes moist, normal exam and normal external ear exam Neck Neck exam: Present normal inspection Respiratory Respiratory exam: Present normal respiratory exam Cardiovascular Cardiovascular exam: Present normal rate and rhythm GI/Abdominal GI/Abdominal exam: Present normal bowel sounds Extremities Exam Extremities exam: Present full ROM and tenderness; Absent normal inspection Additional comments: Right lateral hip covered by surgical dressing Back Exam Back exam: Present normal inspection Neurological Exam Neurological exam: Present alert and oriented X3 Skin Skin exam: Present intact and warm OBJ DATA Labs 10/05/22 05:20 10/05/22 05:20 Labs: Abnormal Lab Results 10/05/22 10/05/22 10/05/22 05:20 05:20 05:20 RBC 3.42 L Hgb 10.1 L Hct 33.2 L MCHC 30.4 L RDW 14.7 H Plt Count 136 L Immature Gran % (Auto) 0.6 H [place]mer[place] # (Auto) 1.09 H Immature Gran # 0.06 H PT 18.0 H INR 1.4 H Chloride Anion Gap 7.0 L BUN Glucose 139 H Calcium 8.0 L Total Protein 5.6 L Albumin 2.7 L Albumin/Globulin Ratio 0.9 L 10/04/22 10/04/22 10/04/22 05:13 05:13 05:13 RBC 3.79 L Hgb 11.2 L Hct 35.6 L MCHC RDW 14.7 H Plt Count 133 L Immature Gran % (Auto) 1.6 H Esmer[place]da # (Auto) 1.05 H Immature Gran # 0.17 H PT 19.2 H INR 1.6 H Chloride Anion Gap BUN Glucose 126 H Calcium 8.2 L Total Protein Albumin 2.9 L Albumin/Globulin Ratio 10/03/22 10/03/22 10/03/22 05:18 05:18 05:18 RBC 3.98 L Hgb 12.0 L Hct 36.9 L MCHC RDW 14.9 H Plt Count Immature Gran % (Auto) 1.1 H Esmeralda # (Auto) 1.21 H Immature Gran # 0.11 H PT 22.1 H INR 1.9 H Chloride 109 H Anion Gap 7.0 L BUN 26 H Glucose 118 H Calcium 7.7 L Total Protein 5.7 L Albumin 3.1 L Albumin/Globulin Ratio Meds: Medications Acetaminophen (Acetaminophen 500 Mg Tablet) 1,000 mg PO Q8 [facility]; Protocol Last Admin: 10/05/22 05:21 Dose: 1,000 mg Albuterol Sulfate (Albuterol Sulfate 60 Puff Inhaler) 2 puff INH Q4HP PRN PRN Reason: shortness of breath or wheezing Albuterol/Ipratropium (Ipratropium/Albuterol 3 Ml Ampul.Neb) 3 ml NEB Q4HRT PRN PRN Reason: Wheezing Last Admin: 10/04/22 14:15 Dose: 3 ml Atorvastatin Calcium (Atorvastatin 40 Mg Tablet) 40 mg PO QDAY [facility] Last Admin: 10/05/22 08:15 Dose: 40 mg Ceftriaxone Sodium (Ceftriaxone 1 Gm Vial) 1 gm IV Q24H [facility]; Protocol Last Admin: 10/05/22 08:16 Dose: 1 gm Cholestyramine Resin (Cholestyramine/Aspartame 4 Gm Powd.Pack) 4 gm PO BID@0700,1900 [facility] Last Admin: 10/05/22 07:11 Dose: 4 gm Clonidine HCl (Clonidine Hcl 0.1 Mg Tablet) 0.1 mg PO Q4HP PRN PRN Reason: ALC Clopidogrel Bisulfate (Clopidogrel 75 Mg Tablet) 75 mg PO QDAY [facility] Last Admin: 10/05/22 08:15 Dose: 75 mg Dextrose (Dextrose 50% 50 Ml Vial) 0 ml IV UD PRN PRN Reason: Per Sliding Scale Diagnostic Test (Pha) (Accu-Chek 1 Each Strip) 1 each FS [facility] Last Admin: 10/05/22 07:11 Dose: 1 each Docusate Sodium (Docusate Sodium 100 Mg Capsule) 100 mg PO BID [facility] Last Admin: 10/05/22 08:15 Dose: Not Given Fluoxetine HCl (Fluoxetine Hcl 20 Mg Capsule) 20 mg PO QDAY [facility] Last Admin: 10/05/22 08:16 Dose: 20 mg Folic Acid (Folic Acid 1 Mg Tablet) 1 mg PO DAILY [facility] Glucose (Dextrose 31 Gm Oral.Susp) 15 gm PO PRN PRN PRN Reason: Hypoglycemia Haloperidol Lactate (Haloperidol Lactate 5 Mg/Ml Vial) 0.5 mg IM Q2HP PRN PRN Reason: Alcohol Withdrawal/Assess CIWA Hydralazine HCl (Hydralazine 20 Mg/Ml Vial) 10 mg IV Q4-6HP PRN PRN Reason: Hypertension Hydromorphone HCl (Hydromorphone 1 Mg/Ml Syringe) 1 mg IV Q4HP PRN; Protocol PRN Reason: Per Pain Protocol Last Admin: 10/04/22 14:14 Dose: 1 mg Lactated Ringer's (Lactated Ringers) 1,000 mls @ 75 mls/hr IV .[id number] [facility] Last Admin: 10/05/22 03:27 Dose: 75 mls/hr Insulin Glargine (Insulin Glargine, Human 1 Unit/0.01 Ml) 10 unit SQ QDAY [facility] Last Admin: 10/05/22 08:15 Dose: 10 units Insulin Human Lispro (Insulin Lispro 1 Unit/0.01 Ml Unit) 0 unit SQ [facility]; Protocol Last Admin: 10/05/22 07:31 Dose: 1 units Iron Carb/Multivit/Be[place]gard/Folic Acid (Multivit,Ther Iron,Ca,Fa & Min 1 Tablet) 1 tab PO DAILY [facility] Lorazepam (Lorazepam 2 Mg/Ml Vial) 0 mg IV UD PRN; Protocol PRN Reason: Alcohol Withdrawal/Assess CIWA Melatonin (Melatonin 3 Mg Tablet) 3 mg PO QHS [facility] Last Admin: 10/04/22 20:45 Dose: 3 mg Methocarbamol (Methocarbamol 500 Mg Tablet) 500 mg PO TIDP PRN PRN Reason: Muscle Spasm Metoprolol Succinate (Metoprolol Succinate 25 Mg Tab.Xl.24h) 25 mg PO QDAY [facility] Last Admin: 10/05/22 08:16 Dose: 25 mg Nicotine (Nicotine 21 Mg Patch) 21 mg TOPICAL DAILY@1000 [facility] Nitroglycerin (Nitroglycerin 0.4 Mg Tab.Subl) 0.4 mg SL Q5M PRN PRN Reason: Chest Pain Ondansetron HCl (Ondansetron 4 Mg/2 Ml Vial) 4 mg IV Q6HP PRN PRN Reason: Nausea And Vomiting Last Admin: 10/01/22 21:15 Dose: 4 mg Oxycodone HCl (Oxycodone Ir 5 Mg Tablet) 5 - 10 mg PO Q4HP PRN; Protocol PRN Reason: Pain Last Admin: 10/04/22 16:44 Dose: 10 mg Senna (Sennosides 1 Tablet) 2 tab PO HS [facility] Last Admin: 10/04/22 20:45 Dose: 2 tab Sodium Chloride (0.9 % Sodium Chloride 10 Ml Syringe) 10 ml IV Q8 [facility] Last Admin: 10/05/22 05:15 Dose: 10 ml Sodium Chloride (0.9 % Sodium Chloride 10 Ml Syringe) 10 ml IV Q8 [facility] Thiamine HCl (Thiamine 100 Mg Tablet) 100 mg PO QDAY [facility] Throat Lozenges (Benzocaine/Menthol 1 Lozenge) 1 lozenge PO PRN PRN PRN Reason: Sore Throat Trazodone HCl (Trazodone Hcl 50 Mg Tablet) 50 mg PO HSP PRN PRN Reason: Insomnia Warfarin Sodium (Warfarin 3 Mg Tablet) 3 mg PO SuMoWeThFr [facility] Last Admin: 10/04/22 14:10 Dose: 3 mg Warfarin Sodium (Warfarin 3 Mg Tablet) 6 mg PO TuSa [facility] Warfarin Sodium (Warfarin Per Pharmacy) 1 order PO UD [facility] A/P Assessment and plan (1) Closed hip fracture requiring operative repair: Status: Acute Qualifiers: Encounter type: initial encounter (2) COPD (chronic obstructive pulmonary disease): Status: Chronic (3) Hyperlipidemia: Status: Acute (4) DVT, bilateral lower limbs: Status: Acute (5) Depression: Status: Acute (6) rn long term care (current) use of anticoagulants: Status: Acute (7) DMII (diabetes mellitus, type 2): Status: Chronic (8) H/O coronary atherosclerosis: Status: Acute (9) Aspiration pneumonia: Status: Acute (10) Cigarette smoker: Status: Acute (11) Alcohol withdrawal syndrome: Status: Acute Narrative A/P Narrative: Assessment and Plans: 1. Right hip intertrochanteric fracture: Stays in inpatient med surg s/p surgical fixation of right hip fracture by Dr. Garvey. Clear to discharge from orthopedic surgery stand point 50% weight bearing for 4-6 week Resume Coumadin Tylenol Oxycodone Dilaudid IV Physical therapy evaluation and treatment for placement planning 2. h/o DVT: Resume Coumadin 3. h/o CAD: Resume Plavix Metoprolol succinate ER Lipitor 4. Dyslipidemia: Lipitor 5. T2DM: HgA1c 7.1 Insulin Glargine 10 unit daily Insulin Lispro SSI AC HS Accu Check AC HS Hypoglycemia protocol Diabetic diet 6. Depression: Fluoxetine 7. h/o COPD: DuoNEB NEB PRN shortness of breath or wheezing 8. Aspiration pneumonia vs aspiration pneumonitis: Supplemental oxygen therapy Rocephin Zithromax cbc w/ auto diff in the morning to trend WBC 9. Cigarette smoker: Nicotine replacement therapy 10. Potential alcohol withdrawal symptoms: CIWA protocol with Ativan, IV for now since patient vomiting Zofran PRN nausea vomiting manager ui consult GI ppx: not currently indicated DVT ppx: Coumadin Code status: Full Prognosis: guarded Disposition: inpatient med surg Time Spent With Patient Time: Total time spent is greater than 50% in coordination of care (as documented) at patient's floor/unit and/or counseling patient: Subsequent: Total time with patient: 35 - 49 minutes QUALITY VTE Deep Vein Thrombosis/Pulmonary Embolism Present on Admission: Yes
[2022-10-05] MEDS: NICOTINE 21 MG PATCH TOPICAL SCH (11:29)
[2022-10-05] MEDS ORDERED: ONDANSETRON 4 MG ODT TABLET SL PRN (11:35)
[2022-10-05] MEDS: ONDANSETRON 4 MG/2 ML VIAL IV PRN (11:54)
[2022-10-05] MEDS: LORazepam 2 MG/ML VIAL IV PRN ×5 (12:08→19:07)
[2022-10-05] MEDS: cloNIDine HCL 0.1 MG TABLET PO PRN (12:09)
[2022-10-05] MEDS ORDERED: 0.9 % SODIUM CHLORIDE 10 ML SYRINGE IV SCH (14:00)
[2022-10-05] MEDS: WARFARIN 3 MG TABLET PO SCH (14:19)
[2022-10-05 18:28] LABS: Amphetamine Screen,Urine None detected; Barbiturate Screen,Urine None detected; Benzodiazepines Screen,Urine None detected; Cannabinoid Screen,Urine None detected; Cocaine Screen,Urine None detected; Opiate Screen,Urine None detected; Oxycodone, Urine Screen Suspect Positive; Phencyclidine Screen,Urine None detected
[2022-10-05] MEDS: DEXMEDETOMIDINE 400 MCG in PREMIX 1 BAG IV SCH ×2 (19:33→23:22)
[2022-10-05] MEDS: 0.9 % SODIUM CHLORIDE 250 ML IV SCH (19:33)
[2022-10-05] MEDS ORDERED: DEXMEDETOMIDINE 400 MCG in PREMIX 1 BAG IV SCH (19:45)
[2022-10-05] MEDS ORDERED: MELATONIN 3 MG TABLET PO PRN (21:00)
[2022-10-05] MEDS: SENNOSIDES 1 TABLET PO SCH (21:25)
[2022-10-05] MEDS: MELATONIN 3 MG TABLET PO SCH (21:25)
[2022-10-06] MEDS: ACETAMINOPHEN 650 MG/65 ML BAG IV PRN ×3 (01:41→20:41)
--- NOTE | 2022-10-06 03:58 | XRay Report ---
CLINICAL INFORMATION: Dyspnea COMPARISON: 09/13/2022 TECHNIQUE: Portable FINDINGS: Film taken with suboptimal inspiratory result accentuates the heart size which is equivocally enlarged. Mediastinum is unremarkable. There is slight distention of the pulmonary vasculature. Mild bibasilar airspace disease likely atelectasis. No definite effusion. IMPRESSION: Mild CHF or volume overload. Minor bibasilar atelectasis Interpreted and Authenticated by: Crow Rosario 10/06/22
--- NOTE | 2022-10-06 04:44 | Cat Scan Report ---
CLINICAL INFORMATION: M. History of DVT shunt COMPARISON: None. TECHNIQUE: 2.5 mm helical slices were obtained in the skull base to vertex. Following reconstruction, axial reformatted images were reviewed at bone and parenchymal windows. The exam was performed using radiation dose optimization techniques including, but not limited to, automated exposure control, adjustment of the mA and/or kV according to patient size and use of iterative reconstruction technique. FINDINGS: A [employer] shunt catheter enters through a left parietal craniotomy, near vertex, and extends anteriorly/inferiorly through the left parietal lobe including the deep left parietal and left frontal white matter, the genu and anterior limb of the left internal and the left caudate nucleus. The tip of the catheter is seen in the frontal horn of the left lateral ventricle. The ventricles sulci fissures and cisterns are symmetrically enlarged compatible with mild atrophy.. There is no hemorrhage or other normality seen along the shunt tract. Patchy chronic ischemic changes are noted in the deep left frontal white matter. Bitemporal craniotomy changes noted with aneurysm clips in the region of the M2 middle cerebral arteries. There is a 3 cm region of encephalomalacia in the right anterior temporal lobe in the region of the clip. Also 3 cm region of encephalomalacia in the left frontal lobe anterior to the left aneurysm clip. IMPRESSION: 1. [employer] shunt catheter entering through left posterior parietal craniotomy extending anteriorly through the left parietal lobe, deep left parietal and frontal white matter, internal capsule and caudate nucleus. Catheter tip penetrates penetrates the frontal horn of the lateral ventricle. 2. 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 Moderate encephalomalacia in the adjacent left frontal lobe and adjacent right anterior temporal lobe. Interpreted and Authenticated by: Crow Rosario 10/06/22
[2022-10-06] MEDS: 0.9 % SODIUM CHLORIDE 10 ML SYRINGE IV SCH ×3 (05:29→22:00)
[2022-10-06] MEDS: IPRATROPIUM/ALBUTEROL 3 ML AMPUL.NEB NEB PRN ×2 (06:51→19:59)
[2022-10-06] MEDS: LACTATED RINGERS 1,000 ML IV SCH ×2 (07:11→16:54)
[2022-10-06] MEDS: INSULIN LISPRO 1 UNIT/0.01 ML UNIT SQ SCH ×4 (07:47→21:16)
[2022-10-06] MEDS: 0.9 % SODIUM CHLORIDE 250 ML IV SCH (07:47)
[2022-10-06 08:50] LABS: INR 1.2 (0.9-1.1)
[2022-10-06] MEDS: cefTRIAXone 1 GM VIAL IV SCH (09:08)
[2022-10-06] MEDS: CHOLESTYRAMINE/ASPARTAME 4 GM POWD.PACK PO SCH ×2 (09:08→19:17)
[2022-10-06] MEDS: NICOTINE 21 MG PATCH TOPICAL SCH (09:08)
[2022-10-06] MEDS: cloNIDine HCL 0.1 MG TABLET PO PRN ×2 (09:11→17:18)
[2022-10-06] MEDS: METOPROLOL SUCCINATE 25 MG TAB.XL.24H PO SCH (09:11)
[2022-10-06] MEDS: CLOPIDOGREL 75 MG TABLET PO SCH (09:11)
[2022-10-06] MEDS: FOLIC ACID 1 MG TABLET PO SCH (09:11)
[2022-10-06] MEDS: MULTIVIT,THER IRON,CA,FA & MIN 1 TABLET PO SCH (09:11)
[2022-10-06] MEDS: DOCUSATE SODIUM 100 MG CAPSULE PO SCH ×2 (09:11→19:17)
[2022-10-06] MEDS: INSULIN GLARGINE, HUMAN 1 UNIT/0.01 ML SQ SCH (09:12)
[2022-10-06] MEDS: FLUoxetine HCL 20 MG CAPSULE PO SCH (09:12)
[2022-10-06] MEDS: THIAMINE 100 MG TABLET PO SCH (09:12)
[2022-10-06] MEDS: ATORVASTATIN 40 MG TABLET PO SCH (09:12)
[2022-10-06 09:27] LABS: Basophils # (Auto) 0.06 K/mcL (0.00-0.30); Basophils % (Auto) 0.6 % (0.0-2.0); Eosinophils % (Auto) 10.8 % (0.0-7.0); Hematocrit 34.2 % (40.1-51.0); Hemoglobin 10.3 g/dL (13.7-17.5); Lymphocytes # (Auto) 2.17 K/mcL (1.50-4.80); Lymphocytes % (Auto) 23.4 % (15.5-49.0); Mean Cell Volume 98.8 fL (80.0-100.0); Mean Corpuscular HGB Conc 30.1 g/dL (31.0-36.0); Mean Platelet Volume 10.6 fL (8.8-12.5); Monocytes # (Auto) 0.97 K/mcL (0.10-0.90); Monocytes % (Auto) 10.5 % (1.0-12.0); Neutrophils % (Auto) 54.1 % (38.0-78.0); Platelet Count 159 K/mcL (140-440); RBC 3.46 M/mcL (4.63-6.08); Red Cell Distribution Width 14.9 % (11.5-14.5); WBC 9.3 K/mcL (4.5-11.0)
--- NOTE | 2022-10-06 09:27 | Internal Med Progress Note ---
SUBJECTIVE Subjective Patient information: Note initiated : 10/06/22 at 9:23 am Service Date, if different from initiated Date: [] Patient: Wm Turner 67 y/o M admitted on 10/01/22 for Hip pain; RT hip fx. Chief Complaint: [] Interval history: Mr. Turner is a 67 year old M history of DVT, type 2 diabetes mellitus, depression, COPD, CAD, dyslipidemia, presenting with 1 day history of cute onset 4. Today at around 1 PM when patient was taking shower in his own bathroom, he fell. He stated that he did not lose consciousness. However, he does not remember much details about the accident. Right now he is complaining of severe constant right hip pain without radiations. He denies any chest pain or palpitations. He denies any headache. He denies any confusions. He denies any lethargy. He denies any shortness of breath cough or respiratory wheezings. X-ray showing right hip intertrochanteric fracture. CT of the head without c ontrast did not show any acute intracranial pathologies. Chest x-ray does not show any intra thoracic pathologies. Admission request is called for right hip fracture. INR 2.0 patient is on Coumadin. 10/02: INR 1.9 this morning. Patient is complaining of moderate right hip pain. He denies any shortness of breath. Orthopedic surgery scheduled at 4 PM today. Keep the patient n.p.o. with IV fluid for the time being. Continue narcotics as needed for pain control. Physical therapy evaluation and treatment for placement evaluation after the surgery. Overall condition guarded. Stay in [facility]. 10/03: INR 1.9 this morning. WBC 10.4 this morning. Afebrile overnight. On 5L/min oxygen. All cultures no growth to date. Patient has been NPO since midnight. Will touch base with anesthesia team and Dr. Sanders regarding the timing for surgery. Keep the patient n.p.o. until decision is made. Continue antibiotics with Rocephin and azithromycin for aspiration pneumonia/pneumonitis. Follow-up repeat chest x-ray result. Continue supplemental oxygen therapy. Physical therapy evaluation and treatment for placement planning after the surgery. Overall condition guarded. Stay in [facility]. 10/04: On 3L/min oxygen this morning. INR 1.6. Fasting glucose 126. Patient has been NPO since midnight. Continue supplemental oxygen, Rocephin, and azithromycin for aspiration pneumonia versus pneumonitis while monitoring for culture results. Surgery for right hip fracture by Dr. Garvey today. Physical therapy evaluation and treatment after the surgery for placement pending. Overall condition guarded. Stay in [facility]. 10/05: s/p operative fixation of right hip fracture by Dr. Garvey on 10/04. 50% weight bearing for 4-6 weeks. Patient c/o mild pain right lateral hip. He seems to be anxious, c/o nausea and vomiting. It was reported that patient might have been drinking alcohol, although patient denies and refused beer therapy. CIWA score 12. CIWA protocol for any potential alcohol withdrawal. Nicotine replacement therapy. Narcotics PRN post surgical pain. Physical therapy evaluation and treatment for placement planning. Overall condition guarded. Stay in [facility]. 10/06: Transferred to ICU to start Precedex drip for alcohol withdrawal delirium. However, patient did not tolerate the drip and he was essentially comatose so the drip was stopped. This morning he is CIWA score was 9 without any Precedex drip or even Ativan. He is on 4 L/min nasal cannula oxygen. He is complain of mild to moderate right hip pain. He is alert and oriented x4 to person place time and situations. We will continue CIWA protocol but will switch to p.o. Ativan as needed for symptoms controlled. Continue supplemental oxygen therapy, empiric antibiotics with Rocephin and azithromycin for aspiration pneumonia. Physical therapy evaluation and treatment for placement planning. Overall condition guarded. Constitutional Vitals: Vital Signs Temp Pulse Resp BP Pulse Ox O2 Del Method O2 Flow Rate 37.1 C 67 20 145/88 93 Nasal Cannula 4 10/06/22 08:01 10/06/22 08:01 10/06/22 08:01 10/06/22 08:01 10/06/22 08:01 10/06/22 08:01 10/06/22 08:01 Period Temp Pulse Resp BP Sys/Lisa Pulse Ox O2 Del Method O2 Flow Rate Last 24 Hr 36.7 C-37.5 C 51-90 12-25 94-168/59-90 77-100 Nasal Cannula- Room Air 2-10 Intake and Output 10/05/22 10/06/22 10/06/22 19:59 03:59 11:59 Intake Total 826 132 799 Output Total 1 250 125 Balance 825 -118 674 Weight 119.703 kg 118.887 kg Intake & Output: Intake & Output 10/05/22 10/06/22 10/06/22 19:59 03:59 11:59 Intake Total 826 132 799 Output Total 1 250 125 Balance 825 -118 674 Weight 119.703 kg 118.887 kg Intake: IV 826 132 799 Sodium Chloride 0.9% 250 ml @ 57 20 mls/hr IV .[id number] [facility] Rx#: [id number] Precedex 400 Mcg/100 ml 10 Dextrose 400 Mcg In Premix 1 Bag @ 0.2 MCG/KG/HR 5.985 mls/ hr IV .[id number] [facility] Rx#: [id number] Lactated Ringers 1,000 ml @ 75 826 799 mls/hr IV .[id number] [facility] Rx#: [id number] Oral 0 Output: Urine Catheter Amount 250 125 # of times incontinent of urine 1 Other: Urine Appearance Clear Clear Clear Uretheral (Kuo) Clear Clear Urine Color Dark Yellow Dark Yellow Dark Yellow Uretheral (Kuo) Dark Yellow Dark Yellow # Unmeasured Emesis 1 Exam: Sleeping Head Head exam: Present atraumatic and normal inspection Eye Eye exam: Present normal appearance ENT ENT exam: Present mucous membranes moist, normal exam and normal external ear exam Additional comments: Nasal cannula in place Neck Neck exam: Present normal inspection Respiratory Respiratory exam: Present wheezes Cardiovascular Cardiovascular exam: Present normal rate and rhythm GI/Abdominal GI/Abdominal exam: Present normal bowel sounds Additional comments: Kuo catheter in place Extremities Exam Extremities exam: Present full ROM and tenderness; Absent normal inspection Additional comments: Right lateral hip covered by surgical dressing Back Exam Back exam: Present normal inspection Neurological Exam Neurological exam: Present alert and oriented X3 Skin Skin exam: Present intact and warm OBJ DATA Labs 10/05/22 05:20 10/05/22 05:20 Labs: Abnormal Lab Results 10/06/22 10/05/22 10/05/22 08:19 17:40 05:20 RBC Hgb Hct MCHC RDW Plt Count Immature Gran % (Auto) Weld # (Auto) Immature Gran # PT 16.0 H 18.0 H INR 1.2 H 1.4 H Anion Gap Glucose Calcium Total Protein Albumin Albumin/Globulin Ratio Ur Oxycodone Screen Suspect positive A 10/05/22 10/05/22 10/04/22 05:20 05:20 05:13 RBC 3.42 L Hgb 10.1 L Hct 33.2 L MCHC 30.4 L RDW 14.7 H Plt Count 136 L Immature Gran % (Auto) 0.6 H Weld # (Auto) 1.09 H Immature Gran # 0.06 H PT 19.2 H INR 1.6 H Anion Gap 7.0 L Glucose 139 H Calcium 8.0 L Total Protein 5.6 L Albumin 2.7 L Albumin/Globulin Ratio 0.9 L Ur Oxycodone Screen 10/04/22 10/04/22 05:13 05:13 RBC 3.79 L Hgb 11.2 L Hct 35.6 L MCHC RDW 14.7 H Plt Count 133 L Immature Gran % (Auto) 1.6 H Weld # (Auto) 1.05 H Immature Gran # 0.17 H PT INR Anion Gap Glucose 126 H Calcium 8.2 L Total Protein Albumin 2.9 L Albumin/Globulin Ratio Ur Oxycodone Screen Meds: Medications Albuterol Sulfate (Albuterol Sulfate 60 Puff Inhaler) 2 puff INH Q4HP PRN PRN Reason: shortness of breath or wheezing Albuterol/Ipratropium (Ipratropium/Albuterol 3 Ml Ampul.Neb) 3 ml NEB Q4HRT PRN PRN Reason: Wheezing Last Admin: 10/06/22 06:51 Dose: 3 ml Atorvastatin Calcium (Atorvastatin 40 Mg Tablet) 40 mg PO QDAY [facility] Last Admin: 10/06/22 09:12 Dose: 40 mg Ceftriaxone Sodium (Ceftriaxone 1 Gm Vial) 1 gm IV Q24H [facility]; Protocol Last Admin: 10/06/22 09:08 Dose: 1 gm Cholestyramine Resin (Cholestyramine/Aspartame 4 Gm Powd.Pack) 4 gm PO BID@0700,1900 [facility] Last Admin: 10/06/22 09:08 Dose: 4 gm Clonidine HCl (Clonidine Hcl 0.1 Mg Tablet) 0.1 mg PO Q4HP PRN PRN Reason: ALC Last Admin: 10/06/22 09:11 Dose: 0.1 mg Clopidogrel Bisulfate (Clopidogrel 75 Mg Tablet) 75 mg PO QDAY [facility] Last Admin: 10/06/22 09:11 Dose: 75 mg Dextrose (Dextrose 50% 50 Ml Vial) 0 ml IV UD PRN PRN Reason: Per Sliding Scale Diagnostic Test (Pha) (Accu-Chek 1 Each Strip) 1 each FS ACHS [facility] Last Admin: 10/06/22 07:47 Dose: 1 each Docusate Sodium (Docusate Sodium 100 Mg Capsule) 100 mg PO BID [facility] Last Admin: 10/06/22 09:11 Dose: 100 mg Fluoxetine HCl (Fluoxetine Hcl 20 Mg Capsule) 20 mg PO QDAY [facility] Last Admin: 10/06/22 09:12 Dose: 20 mg Folic Acid (Folic Acid 1 Mg Tablet) 1 mg PO DAILY [facility] Last Admin: 10/06/22 09:11 Dose: 1 mg Glucose (Dextrose 31 Gm Oral.Susp) 15 gm PO PRN PRN PRN Reason: Hypoglycemia Haloperidol Lactate (Haloperidol Lactate 5 Mg/Ml Vial) 0.5 mg IM Q2HP PRN PRN Reason: Alcohol Withdrawal/Assess CIWA Hydralazine HCl (Hydralazine 20 Mg/Ml Vial) 10 mg IV Q4-6HP PRN PRN Reason: Hypertension Hydromorphone HCl (Hydromorphone 1 Mg/Ml Syringe) 1 mg IV Q4HP PRN; Protocol PRN Reason: Per Pain Protocol Last Admin: 10/04/22 14:14 Dose: 1 mg Lactated Ringer's (Lactated Ringers) 1,000 mls @ 75 mls/hr IV .[id number] [facility] Last Infusion: 10/06/22 07:11 Dose: 0 mls/hr Acetaminophen (Ofirmev) 650 mg in 65 mls @ 130 mls/hr IV Q6HP PRN; Protocol PRN Reason: PAIN/FEVER > 101 Last Infusion: 10/06/22 02:11 Dose: Infused Sodium Chloride (Sodium Chloride 0.9%) 250 mls @ 20 mls/hr IV .[id number] [facility] Last Admin: 10/06/22 07:47 Dose: Not Given Insulin Glargine (Insulin Glargine, Human 1 Unit/0.01 Ml) 10 unit SQ QDAY [facility] Last Admin: 10/06/22 09:12 Dose: 10 units Insulin Human Lispro (Insulin Lispro 1 Unit/0.01 Ml Unit) 0 unit SQ [facility]; Protocol Last Admin: 10/06/22 07:47 Dose: Not Given Iron Carb/Multivit/[place]/Folic Acid (Multivit,Ther Iron,Ca,Fa & Min 1 Tablet) 1 tab PO DAILY [facility] Last Admin: 10/06/22 09:11 Dose: 1 tab Lorazepam (Lorazepam 1 Mg Tablet) 2 mg PO Q2HP PRN PRN Reason: CIWA-A >6 or HR >100 Melatonin (Melatonin 3 Mg Tablet) 3 mg PO QHS [facility] Last Admin: 10/05/22 21:25 Dose: Not Given Melatonin (Melatonin 3 Mg Tablet) 3 mg PO HSP PRN PRN Reason: Insomnia Methocarbamol (Methocarbamol 500 Mg Tablet) 500 mg PO TIDP PRN PRN Reason: Muscle Spasm Metoprolol Succinate (Metoprolol Succinate 25 Mg Tab.Xl.24h) 25 mg PO QDAY [facility] Last Admin: 10/06/22 09:11 Dose: 25 mg Nicotine (Nicotine 21 Mg Patch) 21 mg TOPICAL DAILY@1000 [facility] Last Admin: 10/06/22 09:08 Dose: 21 mg Nitroglycerin (Nitroglycerin 0.4 Mg Tab.Subl) 0.4 mg SL Q5M PRN PRN Reason: Chest Pain Ondansetron HCl (Ondansetron 4 Mg/2 Ml Vial) 4 mg IV Q6HP PRN PRN Reason: Nausea And Vomiting Last Admin: 10/05/22 11:54 Dose: 4 mg Ondansetron HCl (Ondansetron 4 Mg Odt Tablet) 4 mg SL Q6HP PRN PRN Reason: Nausea And Vomiting Oxycodone HCl (Oxycodone Ir 5 Mg Tablet) 5 - 10 mg PO Q4HP PRN; Protocol PRN Reason: Pain Last Admin: 10/04/22 16:44 Dose: 10 mg Senna (Sennosides 1 Tablet) 2 tab PO [facility] Last Admin: 10/05/22 21:25 Dose: Not Given Sodium Chloride (0.9 % Sodium Chloride 10 Ml Syringe) 10 ml IV Q8 [facility] Last Admin: 10/06/22 05:29 Dose: 10 ml Thiamine HCl (Thiamine 100 Mg Tablet) 100 mg PO QDAY [facility] Last Admin: 10/06/22 09:12 Dose: 100 mg Throat Lozenges (Benzocaine/Menthol 1 Lozenge) 1 lozenge PO PRN PRN PRN Reason: Sore Throat Warfarin Sodium (Warfarin 3 Mg Tablet) 3 mg PO SuMoWe [facility] Last Admin: 10/05/22 14:19 Dose: 3 mg Warfarin Sodium (Warfarin 3 Mg Tablet) 6 mg PO [facility] Warfarin Sodium (Warfarin Per Pharmacy) 1 order PO [facility] A/P Assessment and plan (1) Closed hip fracture requiring operative repair: Status: Acute Qualifiers: Encounter type: initial encounter (2) COPD (chronic obstructive pulmonary disease): Status: Chronic (3) Hyperlipidemia: Status: Acute (4) DVT, bilateral lower limbs: Status: Acute (5) Depression: Status: Acute (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 Right hip intertrochanteric fracture: Stays in inpatient med surg s/p surgical fixation of right hip fracture by Dr. Garvey. Clear to discharge from orthopedic surgery stand point 50% weight bearing for 4-6 week Resume Coumadin Tylenol Oxycodone Dilaudid IV Physical therapy evaluation and treatment for placement planning 2. h/o DVT: Resume Coumadin 3. h/o CAD: Resume Plavix Metoprolol succinate ER Lipitor 4. Dyslipidemia: Lipitor 5. T2DM: HgA1c 7.1 Insulin Glargine 10 unit daily Insulin Lispro SSI AC HS Accu Check AC HS Hypoglycemia protocol Diabetic diet 6. Depression: Fluoxetine 7. h/o COPD: DuoNEB NEB PRN shortness of breath or wheezing 8. Aspiration pneumonia vs aspiration pneumonitis: Supplemental oxygen therapy Rocephin Zithromax cbc w/ auto diff in the morning to trend WBC 9. Cigarette smoker: Nicotine replacement therapy 10. 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
[2022-10-06 09:32] LABS: ALT/SGPT 14 U/L (<40); AST/SGOT 19 U/L (<40); Albumin/Globulin Ratio 0.9 (1.0-2.3); Alkaline Phosphatase 65 U/L (39-117); Bilirubin,Total 0.8 mg/dL (0.1-1.0); Blood Urea Nitrogen 17 mg/dL (8-23); Calcium 8.3 mg/dL (8.6-10.4); Carbon Dioxide 26 mmol/L (22-30); Chloride 102 mmol/L (96-108); Globulin 3.2 gm/dL (2.2-3.7); Glomerular Filtration Rate 76; Glucose 121 mg/dL (70-105)
[2022-10-06] MEDS: LORazepam 1 MG TABLET PO PRN ×3 (11:31→19:20)
[2022-10-06] MEDS: oxyCODONE IR 5 MG TABLET PO PRN ×2 (13:44→20:30)
[2022-10-06] MEDS ORDERED: WARFARIN 3 MG TABLET PO SCH (14:00)
[2022-10-06] MEDS: MELATONIN 3 MG TABLET PO SCH (19:17)
[2022-10-06] MEDS: SENNOSIDES 1 TABLET PO SCH (19:17)
[2022-10-06] MEDS: HYDROmorphone 1 MG/ML SYRINGE IV PRN (23:40)
[2022-10-07] MEDS: LORazepam 1 MG TABLET PO PRN (02:13)
[2022-10-07] MEDS: METHOCARBAMOL 500 MG TABLET PO PRN (04:41)
[2022-10-07] MEDS: IPRATROPIUM/ALBUTEROL 3 ML AMPUL.NEB NEB PRN ×2 (06:19→11:17)
[2022-10-07] MEDS: 0.9 % SODIUM CHLORIDE 10 ML SYRINGE IV SCH ×3 (06:20→20:55)
[2022-10-07 07:08] LABS: INR 1.4 (0.9-1.1); Prothrombin Time 17.6 sec (11.9-14.5)
[2022-10-07] MEDS: CHOLESTYRAMINE/ASPARTAME 4 GM POWD.PACK PO SCH ×2 (08:26→16:17)
[2022-10-07] MEDS: LACTATED RINGERS 1,000 ML IV SCH ×2 (08:26→21:00)
[2022-10-07] MEDS: INSULIN LISPRO 1 UNIT/0.01 ML UNIT SQ SCH ×4 (08:26→20:53)
[2022-10-07] MEDS ORDERED: FLEETS ADULT ENEMA PR PRN (08:29)
[2022-10-07] MEDS ORDERED: BISACODYL 10 MG SUPP.RECT PR PRN (08:30)
--- NOTE | 2022-10-07 09:36 | Internal Med Progress Note ---
SUBJECTIVE Subjective Patient information: Note initiated : 10/07/22 at 9:33 am Service Date, if different from initiated Date: [] Patient: Wm Turner a 67 y/o M admitted on 10/01/22 for Hip pain; RT hip fx. Chief Complaint: [] Additional PMFSH (Level 3 Only): Interval history: Mr. Turner is a 67 year old M history of DVT, type 2 diabetes mellitus, depression, COPD, CAD, dyslipidemia, presenting with 1 day history of cute onset 4. Today at around 1 PM when patient was taking shower in his own bathroom, he fell. He stated that he did not lose consciousness. However, he does not remember much details about the accident. Right now he is complaining of severe constant right hip pain without radiations. He denies any chest pain or pa lpitations. He denies any headache. He denies any confusions. He denies any lethargy. He denies any shortness of breath cough or respiratory wheezings. X- ray showing right hip intertrochanteric fracture. CT of the head without contrast did not show any acute intracranial pathologies. Chest x-ray does not show any intra thoracic pathologies. Admission request is called for right hip fracture. INR 2.0 patient is on Coumadin. 10/02: INR 1.9 this morning. Patient is complaining of moderate right hip pain. He denies any shortness of breath. Orthopedic surgery scheduled at 4 PM today. K eep the patient n.p.o. with IV fluid for the time being. Continue narcotics as needed for pain control. Physical therapy evaluation and treatment for placement evaluation after the surgery. Overall condition guarded. Stay in [facility]. 10/03: INR 1.9 this morning. WBC 10.4 this morning. Afebrile overnight. On 5L/min oxygen. All cultures no growth to date. Patient has been NPO since midnight. Will touch base with anesthesia team and Dr. Sanders regarding the timing for surgery. Keep the patient n.p.o. until decision is made. Continue antibiotics with Rocephin and azithromycin for aspiration pneumonia/pneumonitis. Follow-up repeat chest x-ray result. Continue supplemental oxygen therapy. Physical therapy evaluation and treatment for placement planning after the surgery. Overall condition guarded. Stay in [facility]. 10/04: On 3L/min oxygen this morning. INR 1.6. Fasting glucose 126. Patient has been NPO since midnight. Continue supplemental oxygen, Rocephin, and azithromycin for aspiration pneumonia versus pneumonitis while monitoring for culture results. Surgery for right hip fracture by Dr. Garvey today. Physical therapy evaluation and treatment after the surgery for placement pending. Overall condition guarded. Stay in [facility]. 10/05: s/p operative fixation of right hip fracture by Dr. Garvey on 10/04. 50% weight bearing for 4-6 weeks. Patient c/o mild pain right lateral hip. He seems to be anxious, c/o nausea and vomiting. It was reported that patient might have been drinking alcohol, although patient denies and refused beer therapy. CIWA score 12. CIWA protocol for any potential alcohol withdrawal. Nicotine replacement therapy. Narcotics PRN post surgical pain. Physical therapy evaluation and treatment for placement planning. Overall condition guarded. Stay in [facility]. 10/06: Transferred to ICU to start Precedex drip for alcohol withdrawal delirium. Ho wever, patient did not tolerate the drip and he was essentially comatose so the drip was stopped. This morning he is CIWA score was 9 without any Precedex drip or even Ativan. He is on 4 L/min nasal cannula oxygen. He is complain of mild to moderate right hip pain. He is alert and oriented x4 to person place time and situations. We will continue CIWA protocol but will switch to p.o. Ativan as needed for symptoms controlled. Continue supplemental oxygen therapy, empiric antibiotics with Rocephin and azithromycin for aspiration pneumonia. Physical therapy evaluation and treatment for placement planning. Overall condition guarded. 10/07: Patient was restless and wanting to come out off his bed overnight requiring restraints and was given a dose of Haldol which did not help him calm down. Per patient friend he drinks 4-6 drinks mainly over the weekend and he is not a daily drinker. Patient has been on CIWA protocol. Patient did not sleep much overnight, he was sleepy this morning however would become awake when prompted, he knew he was in the hospital, knew the president and in the second attempt was able to tell the correct date, month and year. We will try to minimize use of opioids and Ativan and instead try smallest dose of Seroquel. Patient is also noted to have some sleep apnea, ABGs obtained showed pH of 7.36, PCO2 52 PO2 61 HCO3 30. Patient will have CPAP/BiPAP with naps and at bedtime. Review of system 14 point review of system was completed. Patient denied any fever or chills No headache, no double vision No chest pain, no palpitation No nausea or vomiting No polyuria, no hematuria Denies any pain Physical examination Head Head exam: Present atraumatic and normal inspection Eye Eye exam: Present normal appearance ENT ENT exam: Present mucous membranes moist, normal exam and normal external ear exam Additional comments: Nasal cannula in place Neck Neck exam: Present normal inspection Respiratory Respiratory exam: Present wheezes Cardiovascular Cardiovascular exam: Present normal rate and rhythm GI/Abdominal GI/Abdominal exam: Present normal bowel sounds Additional comments: Kuo catheter in place Extremities Exam Extremities exam: Present full ROM and tenderness; Absent normal inspection Additional comments: Right lateral hip, surgical dressing on Back Exam Back exam: Present normal inspection Neurological Exam Neurological exam: Present intermittent somnolence however becomes awake on prompting, no focal deficits, alert, oriented but slow to respond Skin Skin exam: Present intact and warm Assessment and Plan: 1. Right hip intertrochanteric fracture: s/p surgical fixation of right hip fracture by Dr. Garvey. 50% weight bearing for 4-6 week Coumadin resumed, INR still subtherapeutic at 1.4. Pain control with Tylenol, try to avoid opioids since patient is having delirium PT OT Will need SNF placement 2. h/o DVT: Continue Coumadin, INR still subtherapeutic. 3. h/o CAD: Resume Plavix Metoprolol succinate ER Lipitor 4. Dyslipidemia: Lipitor 5. T2DM: HgA1c 7.1 Insulin Glargine 10 unit daily Insulin Lispro SSI AC HS Accu Check AC HS Hypoglycemia protocol Diabetic diet 6. Depression: Fluoxetine 7. h/o COPD: DuoNEB NEB PRN shortness of breath or wheezing 8. Aspiration pneumonia vs aspiration pneumonitis: Supplemental oxygen therapy Rocephin Zithromax No fever. Leukocytosis resolved 9. Cigarette smoker: Nicotine replacement therapy 10. Potential alcohol withdrawal symptoms: CIWA protocol, switch off Precedex drip, switch to PO Ativan Zofran PRN nausea vomiting investigation manager consult Per report alcohol intake history not significant. Will try to avoid benzodiazepines and monitor mental status 11. Suspectes obstructive sleep apnea Patient is obese and had episode of sleep apnea, ABGs with CO2 retention CPAP/BiPAP during naps and at bedtime GI ppx: not currently indicated DVT ppx: Coumadin Code status: Full Prognosis: guarded Disposition: Inpatient ICU Critical Care Time: 35min Time Spent With Patient Time: Total time spent is greater than 50% in coordination of care (as documented) at patient's floor/unit and/or counseling patient: Critical Care Time: Yes Total Critical Care Time: 35 Constitutional Vitals: Vital Signs Temp Pulse Resp BP Pulse Ox O2 Del Method O2 Flow Rate 98.2 F 65 16 155/78 100 BiPAP 4 10/07/22 09:11 10/07/22 09:11 10/07/22 09:11 10/07/22 09:01 10/07/22 09:11 10/07/22 09:01 10/07/22 07:01 Period Temp Pulse Resp BP Sys/Lisa Pulse Ox O2 Del Method O2 Flow Rate Last 24 Hr 98.1 F-99.8 F 41-99 9-30 107-177/50-120 78-100 BiPAP-Oxymask 2-4 Intake and Output 10/06/22 10/07/22 10/07/22 19:59 03:59 11:59 Intake Total 720 65 Output Total 1225 700 Balance -505 -635 Weight 116.21 kg Intake & Output: Intake & Output 10/06/22 10/07/22 10/07/22 19:59 03:59 11:59 Intake Total 720 65 Output Total 1225 700 Balance -505 -635 Weight 116.21 kg Intake: IV 65 Oral 720 Output: Urine Catheter Amount 1225 700 Other: Meal Dinner Percent of Meal Consumed 50% Feeding Ability Assist with Tray Set Up Nourishment/Supplement name milk Urine Appearance Clear Cloudy Hematuria Small Blood Clots Uretheral (Kuo) Clear Cloudy Small Blood Clots Hematuria Urine Color Dark Yellow Dark Yellow Dark [place] Uretheral (Kuo) Dark Yellow Dark Yellow Dark Yellow Dark [place]ley OBJ DATA Labs 10/06/22 09:16 10/06/22 09:16 Labs: Abnormal Lab Results 10/07/22 10/07/22 10/06/22 06:39 05:14 09:16 RBC Hgb Hct MCHC RDW Plt Count Immature Gran % (Auto) Eos % (Auto) [place] # (Auto) Eos # (Auto) Immature Gran # PT 17.6 H INR 1.4 H POC pCO2 52.8 H* POC pO2 61 L POC HCO3 30.1 H POC Total CO2 32.0 H POC ABG Base Excess 5.0 H ABG Lactic Acid < 0.3 L Hgb O2 Saturation 89.0 L Anion Gap Glucose 121 H Calcium 8.3 L Total Protein Albumin 3.0 L Albumin/Globulin Ratio 0.9 L Ur Oxycodone Screen 10/06/22 10/06/22 10/05/22 09:16 08:19 17:40 RBC 3.46 L Hgb 10.3 L Hct 34.2 L MCHC 30.1 L RDW 14.9 H Plt Count Immature Gran % (Auto) 0.6 H Eos % (Auto) 10.8 H [place] # (Auto) 0.97 H Eos # (Auto) 1.00 H Immature Gran # 0.06 H PT 16.0 H INR 1.2 H POC pCO2 POC pO2 POC HCO3 POC Total CO2 POC ABG Base Excess ABG Lactic Acid Hgb O2 Saturation Anion Gap Glucose Calcium Total Protein Albumin Albumin/Globulin Ratio Ur Oxycodone Screen Suspect positive A 10/05/22 10/05/22 10/05/22 05:20 05:20 05:20 RBC 3.42 L Hgb 10.1 L Hct 33.2 L MCHC 30.4 L RDW 14.7 H Plt Count 136 L Immature Gran % (Auto) 0.6 H Eos % (Auto) [place] # (Auto) 1.09 H Eos # (Auto) Immature Gran # 0.06 H PT 18.0 H INR 1.4 H POC pCO2 POC pO2 POC HCO3 POC Total CO2 POC ABG Base Excess ABG Lactic Acid Hgb O2 Saturation Anion Gap 7.0 L Glucose 139 H Calcium 8.0 L Total Protein 5.6 L Albumin 2.7 L Albumin/Globulin Ratio 0.9 L Ur Oxycodone Screen Meds: Medications Albuterol Sulfate (Albuterol Sulfate 60 Puff Inhaler) 2 puff INH Q4HP PRN PRN Reason: shortness of breath or wheezing Albuterol/Ipratropium (Ipratropium/Albuterol 3 Ml Ampul.Neb) 3 ml NEB Q4HRT PRN PRN Reason: Wheezing Last Admin: 10/07/22 06:19 Dose: 3 ml Atorvastatin Calcium (Atorvastatin 40 Mg Tablet) 40 mg PO QDAY [facility] Last Admin: 10/06/22 09:12 Dose: 40 mg Bisacodyl (Bisacodyl 10 Mg Supp.Rect) 10 mg MI DAILYP PRN PRN Reason: Constipation Ceftriaxone Sodium (Ceftriaxone 1 Gm Vial) 1 gm IV Q24H [facility]; Protocol Last Admin: 10/06/22 09:08 Dose: 1 gm Cholestyramine Resin (Cholestyramine/Aspartame 4 Gm Powd.Pack) 4 gm PO BID@0700,1900 [facility] Last Admin: 10/07/22 08:26 Dose: 4 gm Clonidine HCl (Clonidine Hcl 0.1 Mg Tablet) 0.1 mg PO Q4HP PRN PRN Reason: ALC Last Admin: 10/06/22 17:18 Dose: 0.1 mg Clopidogrel Bisulfate (Clopidogrel 75 Mg Tablet) 75 mg PO QDAY [facility] Last Admin: 10/06/22 09:11 Dose: 75 mg Dextrose (Dextrose 50% 50 Ml Vial) 0 ml IV UD PRN PRN Reason: Per Sliding Scale Diagnostic Test (Pha) (Accu-Chek 1 Each Strip) 1 each FS ACHS [facility] Last Admin: 10/07/22 08:26 Dose: 1 each Docusate Sodium (Docusate Sodium 100 Mg Capsule) 100 mg PO BID [facility] Last Admin: 10/06/22 19:17 Dose: 100 mg Fluoxetine HCl (Fluoxetine Hcl 20 Mg Capsule) 20 mg PO QDAY [facility] Last Admin: 10/06/22 09:12 Dose: 20 mg Folic Acid (Folic Acid 1 Mg Tablet) 1 mg PO DAILY [facility] Last Admin: 10/06/22 09:11 Dose: 1 mg Glucose (Dextrose 31 Gm Oral.Susp) 15 gm PO PRN PRN PRN Reason: Hypoglycemia Haloperidol Lactate (Haloperidol Lactate 5 Mg/Ml Vial) 0.5 mg IM Q2HP PRN PRN Reason: Alcohol Withdrawal/Assess CIWA Last Admin: 10/07/22 01:02 Dose: 0.5 mg Hydralazine HCl (Hydralazine 20 Mg/Ml Vial) 10 mg IV Q4-6HP PRN PRN Reason: Hypertension Hydromorphone HCl (Hydromorphone 1 Mg/Ml Syringe) 1 mg IV Q4HP PRN; Protocol PRN Reason: Per Pain Protocol Last Admin: 10/06/22 23:40 Dose: 1 mg Lactated Ringer's (Lactated Ringers) 1,000 mls @ 75 mls/hr IV .[id number] [facility] Last Admin: 10/07/22 08:26 Dose: Not Given Acetaminophen (Ofirmev) 650 mg in 65 mls @ 130 mls/hr IV Q6HP PRN; Protocol PRN Reason: PAIN/FEVER > 101 Last Infusion: 10/06/22 21:11 Dose: Infused Insulin Glargine (Insulin Glargine, Human 1 Unit/0.01 Ml) 10 unit SQ QDAY [facility] Last Admin: 10/06/22 09:12 Dose: 10 units Insulin Human Lispro (Insulin Lispro 1 Unit/0.01 Ml Unit) 0 unit SQ ACHS [facility]; Protocol Last Admin: 10/07/22 08:26 Dose: Not Given Iron Carb/Multivit/Plaster Mechanic/Folic Acid (Multivit,Ther Iron,Ca,Fa & Min 1 Tablet) 1 tab PO DAILY [facility] Last Admin: 10/06/22 09:11 Dose: 1 tab Lorazepam (Lorazepam 1 Mg Tablet) 2 mg PO Q2HP PRN PRN Reason: CIWA-A >6 or HR >100 Last Admin: 10/07/22 02:13 Dose: 2 mg Magnesium Hydroxide (Magnesium Hydroxide 30 Ml Oral.Susp) 30 ml PO DAILYP PRN PRN Reason: Constipation Melatonin (Melatonin 3 Mg Tablet) 3 mg PO QHS [facility] Last Admin: 10/06/22 19:17 Dose: 3 mg Melatonin (Melatonin 3 Mg Tablet) 3 mg PO HSP PRN PRN Reason: Insomnia Methocarbamol (Methocarbamol 500 Mg Tablet) 500 mg PO TIDP PRN PRN Reason: Muscle Spasm Last Admin: 10/07/22 04:41 Dose: 500 mg Metoprolol Succinate (Metoprolol Succinate 25 Mg Tab.Xl.24h) 25 mg PO QDAY [facility] Last Admin: 10/06/22 09:11 Dose: 25 mg Nicotine (Nicotine 21 Mg Patch) 21 mg TOPICAL DAILY@1000 [facility] Last Admin: 10/06/22 09:08 Dose: 21 mg Nitroglycerin (Nitroglycerin 0.4 Mg Tab.Subl) 0.4 mg SL Q5M PRN PRN Reason: Chest Pain Ondansetron HCl (Ondansetron 4 Mg/2 Ml Vial) 4 mg IV Q6HP PRN PRN Reason: Nausea And Vomiting Last Admin: 10/05/22 11:54 Dose: 4 mg Ondansetron HCl (Ondansetron 4 Mg Odt Tablet) 4 mg SL Q6HP PRN PRN Reason: Nausea And Vomiting Last Admin: 10/06/22 11:27 Dose: 4 mg Oxycodone HCl (Oxycodone Ir 5 Mg Tablet) 5 - 10 mg PO Q4HP PRN; Protocol PRN Reason: Pain Last Admin: 10/06/22 20:30 Dose: 10 mg Quetiapine Fumarate (Quetiapine 25 Mg Tablet) 12.5 mg PO BIDP PRN PRN Reason: ANXIETY/SEDATION Senna (Sennosides 1 Tablet) 2 tab PO [facility] Last Admin: 10/06/22 19:17 Dose: 2 tab Sodium Biphosphate/Sodium Phosphate (Fleets Adult Enema) 1 dose MI DAILYP PRN PRN Reason: Constipation Sodium Chloride (0.9 % Sodium Chloride 10 Ml Syringe) 10 ml IV Q8 [facility] Last Admin: 10/07/22 06:20 Dose: 10 ml Thiamine HCl (Thiamine 100 Mg Tablet) 100 mg PO QDAY [facility] Last Admin: 10/06/22 09:12 Dose: 100 mg Throat Lozenges (Benzocaine/Menthol 1 Lozenge) 1 lozenge PO PRN PRN PRN Reason: Sore Throat Warfarin Sodium (Warfarin 3 Mg Tablet) 3 mg PO SuMoWeThFr [facility] Last Admin: 10/05/22 14:19 Dose: 3 mg Warfarin Sodium (Warfarin 3 Mg Tablet) 6 mg PO TuSa [facility] Last Admin: 10/06/22 13:47 Dose: 6 mg Warfarin Sodium (Warfarin Per Pharmacy) 1 order PO [facility] A/P Time Spent With Patient Time: Total time spent is greater than 50% in coordination of care (as documented) at patient's floor/unit and/or counseling patient: QUALITY VTE Deep Vein Thrombosis/Pulmonary Embolism Present on Admission: Yes Restraints Restraint In Place: No
[2022-10-07] MEDS: MAGNESIUM HYDROXIDE 30 ML ORAL.SUSP PO PRN (10:05)
[2022-10-07] MEDS: ACETAMINOPHEN 650 MG/65 ML BAG IV PRN ×3 (10:05→23:57)
[2022-10-07] MEDS: MULTIVIT,THER IRON,CA,FA & MIN 1 TABLET PO SCH (10:06)
[2022-10-07] MEDS: ATORVASTATIN 40 MG TABLET PO SCH (10:06)
[2022-10-07] MEDS: FOLIC ACID 1 MG TABLET PO SCH (10:06)
[2022-10-07] MEDS: THIAMINE 100 MG TABLET PO SCH (10:06)
[2022-10-07] MEDS: INSULIN GLARGINE, HUMAN 1 UNIT/0.01 ML SQ SCH (10:06)
[2022-10-07] MEDS: CLOPIDOGREL 75 MG TABLET PO SCH (10:06)
[2022-10-07] MEDS: cefTRIAXone 1 GM VIAL IV SCH (10:06)
[2022-10-07] MEDS: NICOTINE 21 MG PATCH TOPICAL SCH (10:06)
[2022-10-07] MEDS: FLUoxetine HCL 20 MG CAPSULE PO SCH (10:07)
[2022-10-07] MEDS: DOCUSATE SODIUM 100 MG CAPSULE PO SCH ×2 (10:07→19:08)
[2022-10-07] MEDS: METOPROLOL SUCCINATE 25 MG TAB.XL.24H PO SCH (10:07)
[2022-10-07] MEDS: WARFARIN 3 MG TABLET PO SCH (13:15)
[2022-10-07] MEDS: QUEtiapine 25 MG TABLET PO PRN ×3 (13:15→19:47)
[2022-10-07] MEDS: MELATONIN 3 MG TABLET PO SCH (19:08)
[2022-10-07] MEDS: SENNOSIDES 1 TABLET PO SCH (19:09)
[2022-10-07] MEDS: ONDANSETRON 4 MG/2 ML VIAL IV PRN (19:12)
[2022-10-08] MEDS: CHOLESTYRAMINE/ASPARTAME 4 GM POWD.PACK PO SCH ×2 (05:13→16:10)
[2022-10-08] MEDS: 0.9 % SODIUM CHLORIDE 10 ML SYRINGE IV SCH ×3 (05:14→22:05)
[2022-10-08 07:43] LABS: INR 1.6 (0.9-1.1); Prothrombin Time 19.2 sec (11.9-14.5)
[2022-10-08] MEDS: THIAMINE 100 MG TABLET PO SCH (08:37)
[2022-10-08] MEDS: ATORVASTATIN 40 MG TABLET PO SCH (08:37)
[2022-10-08] MEDS: DOCUSATE SODIUM 100 MG CAPSULE PO SCH ×2 (08:37→20:11)
[2022-10-08] MEDS: FLUoxetine HCL 20 MG CAPSULE PO SCH (08:37)
[2022-10-08] MEDS: METOPROLOL SUCCINATE 25 MG TAB.XL.24H PO SCH (08:37)
[2022-10-08] MEDS: FOLIC ACID 1 MG TABLET PO SCH (08:38)
[2022-10-08] MEDS: MULTIVIT,THER IRON,CA,FA & MIN 1 TABLET PO SCH (08:38)
[2022-10-08] MEDS: CLOPIDOGREL 75 MG TABLET PO SCH (08:38)
[2022-10-08] MEDS: oxyCODONE IR 5 MG TABLET PO PRN (08:38)
[2022-10-08] MEDS: cefTRIAXone 1 GM VIAL IV SCH (08:39)
[2022-10-08] MEDS: INSULIN LISPRO 1 UNIT/0.01 ML UNIT SQ SCH ×4 (08:39→21:00)
[2022-10-08] MEDS: INSULIN GLARGINE, HUMAN 1 UNIT/0.01 ML SQ SCH (08:47)
[2022-10-08] MEDS ORDERED: POLYETHYLENE GLYCOL 3350 17 GM PACKET PO PRN (10:04)
[2022-10-08] MEDS: NICOTINE 21 MG PATCH TOPICAL SCH (10:07)
--- NOTE | 2022-10-08 10:20 | Internal Med Progress Note ---
SUBJECTIVE Subjective Patient information: Note initiated : 10/08/22 at 10:05 am Service Date, if different from initiated Date: [] Patient: Wm Turner 67 y/o M admitted on 10/01/22 for Hip pain; RT hip fx. Chief Complaint: [] Additional PMFSH (Level 3 Only): Mr. Turner is a 67 year old M history of DVT, type 2 diabetes mellitus, depression, COPD, CAD, dyslipidemia, history of brain aneurysm, subarachnoid hemorrhage status post ventriculoperitoneal shunt, DVT on Coumadin, renal cell carcinoma presented after a fall in his bathtub with altered mental status. EMS found him with somewhat slurred speech after use of his fentanyl. Patient does not think he lost consciousness. However he did not remember much details of the incident. Patient was complaining of pain in right hip and was found to have right intertrochanteric fracture on x-ray. CT of the head showed no acute findings. Chest x-ray was unremarkable. Patient INR was 2.0. Patient had vomiting in ER and was suctioned. 10/02: INR 1.9 this morning. Patient is complaining of moderate right hip pain. He denies any shortness of breath. Orthopedic surgery scheduled at 4 PM today. Keep the patient n.p.o. with IV fluid for the time being. Continue narcotics as needed for pain control. Physical therapy evaluation and treatment for placement evaluation after the surgery. Overall condition guarded. Stay in [facility]. 10/03: INR 1.9 this morning. WBC 10.4 this morning. Afebrile overnight. On 5L/min oxygen. All cultures no growth to date. Patient has been NPO since midnight. Will touch base with anesthesia team and Dr. Sanders regarding the timing for surgery. Keep the patient n.p.o. until decision is made. Continue antibiotics with Rocephin and azithromycin for aspiration pneumonia/pneumonitis. Follow-up repeat chest x-ray result. Continue supplemental oxygen therapy. Physical therapy evaluation and treatment for placement planning after the surgery. Overall condition guarded. Stay in [facility]. 10/04: On 3L/min oxygen this morning. INR 1.6. Fasting glucose 126. Patient has been NPO since midnight. Continue supplemental oxygen, Rocephin, and azithromycin for aspiration pneumonia versus pneumonitis while monitoring for culture results. Surgery for right hip fracture by Dr. Garvey today. Physical therapy evaluation and treatment after the surgery for placement pending. Overall condition guarded. Stay in [facility]. 10/05: s/p operative fixation of right hip fracture by Dr. Garvey on 10/04. 50% weight bearing for 4-6 weeks. Patient c/o mild pain right lateral hip. He seems to be anxious, c/o nausea and vomiting. It was reported that patient might have been drinking alcohol, although patient denies and refused beer therapy. CIWA score 1 2. CIWA protocol for any potential alcohol withdrawal. Nicotine replacement therapy. Narcotics PRN post surgical pain. Physical therapy evaluation and treatment for placement planning. Overall condition guarded. Stay in [facility]. 10/06: Transferred to ICU to start Precedex drip for alcohol withdrawal delirium. However, patient did not tolerate the drip and he was essentially comatose so the drip was stopped. This morning he is CIWA score was 9 without any Precedex drip or even Ativan. He is on 4 L/min nasal cannula oxygen. He is complain of mild to moderate right hip pain. He is alert and oriented x4 to person place time and situations. We will continue CIWA protocol but will switch to p.o. Ativan as needed for symptoms controlled. Continue supplemental oxygen therapy, empiric antibiotics with Rocephin and azithromycin for aspiration pneumonia. Physical therapy evaluation and treatment for placement planning. Overall condition guarded. 10/07: Patient was restless and wanting to come out off his bed overnight requiring restraints and was given a dose of Haldol which did not help him calm down. Per patient friend he drinks 4-6 drinks mainly over the weekend and he is not a daily drinker. Patient has been on CIWA protocol. Patient did not sleep much overnight, he was sleepy this morning however would become awake when prompted, he knew he was in the hospital, knew the president and in the second attempt was able to tell the correct date, month and year. We will try to minimize use of opioids and Ativan and instead try smallest dose of Seroquel. Patient is also n oted to have some sleep apnea, ABGs obtained showed pH of 7.36, PCO2 52 PO2 61 HCO3 30. Patient will have CPAP/BiPAP with naps and at bedtime. 10/08: Patient was seen, his daughter from [place] was present in the room. She reported patient has brain aneurysm x2 he had craniotomy couple years ago and one brain aneurysm was surgically treated. His daughter reports that patient mentation has improved after patient was started on Seroquel, also minimizing use of benzodiazepine and opioids. Patient has been sitting up in the chair without any concerns. Daughter is happy with his progress. Patient orientation and mentation is improving. He did have Tmax of 100.4 this morning. Will obtain CBC and CMP. He did tolerate BiPAP overnight. He was advised to have sleep study as an outpatient. Review of system 14 point review of system was completed. Patient denied any fever or chills however low-grade temp was noted this morning No headache, no double vision No chest pain, no palpitation No nausea or vomiting No polyuria, no hematuria Denies any pain Physical examination Head Head exam: Present atraumatic and normal inspection Eye Eye exam: Present normal appearance ENT ENT exam: Present mucous membranes moist, normal exam and normal external ear exam Additional comments: Nasal cannula in place Neck Neck exam: Present normal inspection Respiratory Respiratory exam: Chest is clear bilaterally Cardiovascular Cardiovascular exam: Present normal rate and rhythm GI/Abdominal GI/Abdominal exam: Present normal bowel sounds Additional comments: Kuo catheter in place Extremities Exam Extremities exam: Present full ROM and tenderness; Absent normal inspection Additional comments: Right lateral hip, surgical dressing on Back Exam Back exam: Present normal inspection Neurological Exam Neurological exam: Alert, awake, conversing well. Oriented to person and place, got a bit mixed up with date but with prompting was able to tell the correct date. No focal deficits Skin Skin exam: Present intact and warm Assessment and Plan: 1. Right hip intertrochanteric fracture: s/p surgical fixation of right hip fracture by Dr. Garvey. 50% weight bearing for 4-6 week Coumadin resumed, INR still subtherapeutic at 1.4. Pain control with Tylenol, try to avoid opioids since patient is having delirium PT OT Will need SNF placement 2. h/o DVT: Continue Coumadin, INR still subtherapeutic. 3. h/o CAD: Resume Plavix Metoprolol succinate ER Lipitor 4. Dyslipidemia: Lipitor 5. T2DM: HgA1c 7.1 Insulin Glargine 10 unit daily Insulin Lispro SSI AC HS Accu Check AC HS Hypoglycemia protocol Diabetic diet 6. Depression: Fluoxetine 7. h/o COPD: DuoNEB NEB PRN shortness of breath or wheezing 8. Aspiration pneumonia vs aspiration pneumonitis: Patient received Zithromax and currently on ceftriaxone Low-grade fever this morning Repeat chest x-ray, if evidence of pneumonia will broaden antibiotic coverage Rocephin Zithromax No fever. Leukocytosis resolved 9. Cigarette smoker: Nicotine replacement therapy 10. Potential alcohol withdrawal symptoms: Patient's status post CIWA protocol, did not tolerate Precedex drip Per report alcohol intake is not significant to account for alcohol withdrawal Discontinue CIWA protocol and benzodiazepines. 11. Suspect obstructive sleep apnea Patient is obese and had episode of sleep apnea, ABGs with CO2 retention CPAP/BiPAP during naps and at bedtime Altered mental status, delirium Responding well to Seroquel GI ppx: not currently indicated DVT ppx: Coumadin Code status: Full Prognosis: guarded Time Spent With Patient Time: Total time spent is greater than 50% in coordination of care (as documented) at patient's floor/unit and/or counseling patient: Total time 40 minutes Constitutional Vitals: Vital Signs Temp Pulse Resp BP Pulse Ox O2 Del Method O2 Flow Rate 100.4 F H 94 H 22 151/73 93 Nasal Cannula, Bubble Humidifier 4 10/08/22 09:35 10/08/22 09:02 10/08/22 09:35 10/08/22 09:35 10/08/22 09:02 10/08/22 09:35 10/08/22 09:35 Period Temp Pulse Resp BP Sys/Lisa Pulse Ox O2 Del Method O2 Flow Rate Last 24 Hr 98.5 F-100.4 F 64-94 13-26 109-188/60-137 89-99 BiPAP-Nasal Cannula, Bubble Humidifier 1.5-4 Intake and Output 10/07/22 10/08/22 10/08/22 19:59 03:59 11:59 Intake Total 305 65 Output Total 1050 1150 1300 Balance -745 -1085 -1300 Weight 116.12 kg Intake & Output: Intake & Output 10/07/22 10/08/22 10/08/22 19:59 03:59 11:59 Intake Total 305 65 Output Total 1050 1150 1300 Balance -745 -1085 -1300 Weight 116.12 kg Intake: IV 65 65 Oral 240 Output: Urine Catheter Amount 1050 1150 1300 Other: Meal Dinner Breakfast Percent of Meal Consumed 75% 75% Feeding Ability Assist with Tray Set Up Assist with Tray Set Up Urine Appearance Clear Clear Clear Uretheral (Kuo) Clear Clear Urine Color Yellow Yellow Yellow Pale Uretheral (Kuo) Yellow Yellow OBJ DATA Labs 10/06/22 09:16 10/06/22 09:16 Labs: Abnormal Lab Results 10/08/22 10/07/22 10/07/22 05:00 06:39 05:14 RBC Hgb Hct MCHC RDW Immature Gran % (Auto) Eos % (Auto) [place] # (Auto) Eos # (Auto) Immature Gran # PT 19.2 H 17.6 H INR 1.6 H 1.4 H POC pCO2 52.8 H* POC pO2 61 L POC HCO3 30.1 H POC Total CO2 32.0 H POC ABG Base Excess 5.0 H ABG Lactic Acid < 0.3 L Hgb O2 Saturation 89.0 L Glucose Calcium Albumin Albumin/Globulin Ratio Ur Oxycodone Screen 10/06/22 10/06/22 10/06/22 09:16 09:16 08:19 RBC 3.46 L Hgb 10.3 L Hct 34.2 L MCHC 30.1 L RDW 14.9 H Immature Gran % (Auto) 0.6 H Eos % (Auto) 10.8 H Norton # (Auto) 0.97 H Eos # (Auto) 1.00 H Immature Gran # 0.06 H PT 16.0 H INR 1.2 H POC pCO2 POC pO2 POC HCO3 POC Total CO2 POC ABG Base Excess ABG Lactic Acid Hgb O2 Saturation Glucose 121 H Calcium 8.3 L Albumin 3.0 L Albumin/Globulin Ratio 0.9 L Ur Oxycodone Screen 10/05/22 17:40 RBC Hgb Hct MCHC RDW Immature Gran % (Auto) Eos % (Auto) [place] # (Auto) Eos # (Auto) Immature Gran # PT INR POC pCO2 POC pO2 POC HCO3 POC Total CO2 POC ABG Base Excess ABG Lactic Acid Hgb O2 Saturation Glucose Calcium Albumin Albumin/Globulin Ratio Ur Oxycodone Screen Suspect positive A Meds: Medications Acetaminophen (Acetaminophen 325 Mg Tablet) 650 mg PO Q4HP PRN; Protocol PRN Reason: Per Pain Protocol Albuterol Sulfate (Albuterol Sulfate 60 Puff Inhaler) 2 puff INH Q4HP PRN PRN Reason: shortness of breath or wheezing Albuterol/Ipratropium (Ipratropium/Albuterol 3 Ml Ampul.Neb) 3 ml NEB Q4HRT PRN PRN Reason: Wheezing Last Admin: 10/07/22 11:17 Dose: 3 ml Atorvastatin Calcium (Atorvastatin 40 Mg Tablet) 40 mg PO QDAY [facility] Last Admin: 10/08/22 08:37 Dose: 40 mg Bisacodyl (Bisacodyl 10 Mg Supp.Rect) 10 mg [place] DAILYP PRN PRN Reason: Constipation Ceftriaxone Sodium (Ceftriaxone 1 Gm Vial) 1 gm IV Q24H [facility]; Protocol Last Admin: 10/08/22 08:39 Dose: 1 gm Cholestyramine Resin (Cholestyramine/Aspartame 4 Gm Powd.Pack) 4 gm PO BID@0500,1600 [facility] Last Admin: 10/08/22 05:13 Dose: 4 gm Clonidine HCl (Clonidine Hcl 0.1 Mg Tablet) 0.1 mg PO Q4HP PRN PRN Reason: ALC Last Admin: 10/06/22 17:18 Dose: 0.1 mg Clopidogrel Bisulfate (Clopidogrel 75 Mg Tablet) 75 mg PO QDAY [facility] Last Admin: 10/08/22 08:38 Dose: 75 mg Dextrose (Dextrose 50% 50 Ml Vial) 0 ml IV UD PRN PRN Reason: Per Sliding Scale Diagnostic Test (Pha) (Accu-Chek 1 Each Strip) 1 each FS ACHS [facility] Last Admin: 10/08/22 07:20 Dose: 1 each Docusate Sodium (Docusate Sodium 100 Mg Capsule) 100 mg PO BID [facility] Last Admin: 10/08/22 08:37 Dose: 100 mg Fluoxetine HCl (Fluoxetine Hcl 20 Mg Capsule) 20 mg PO QDAY [facility] Last Admin: 10/08/22 08:37 Dose: 20 mg Folic Acid (Folic Acid 1 Mg Tablet) 1 mg PO DAILY [facility] Last Admin: 10/08/22 08:38 Dose: 1 mg Glucose (Dextrose 31 Gm Oral.Susp) 15 gm PO PRN PRN PRN Reason: Hypoglycemia Haloperidol Lactate (Haloperidol Lactate 5 Mg/Ml Vial) 0.5 mg IM Q2HP PRN PRN Reason: Alcohol Withdrawal/Assess CIWA Last Admin: 10/07/22 01:02 Dose: 0.5 mg Hydralazine HCl (Hydralazine 20 Mg/Ml Vial) 10 mg IV Q4-6HP PRN PRN Reason: Hypertension Hydromorphone HCl (Hydromorphone 1 Mg/Ml Syringe) 1 mg IV Q4HP PRN; Protocol PRN Reason: Per Pain Protocol Last Admin: 10/06/22 23:40 Dose: 1 mg Acetaminophen (Ofirmev) 650 mg in 65 mls @ 130 mls/hr IV Q6HP PRN; Protocol PRN Reason: PAIN/FEVER > 101 Last Infusion: 10/08/22 00:30 Dose: Infused Insulin Glargine (Insulin Glargine, Human 1 Unit/0.01 Ml) 10 unit SQ QDAY [facility] Last Admin: 10/08/22 08:47 Dose: 10 units Insulin Human Lispro (Insulin Lispro 1 Unit/0.01 Ml Unit) 0 unit SQ ACHS [facility]; Protocol Last Admin: 10/08/22 08:39 Dose: Not Given Iron Carb/Multivit/[place]/Folic Acid (Multivit,Ther Iron,Ca,Fa & Min 1 Tablet) 1 tab PO DAILY [facility] Last Admin: 10/08/22 08:38 Dose: 1 tab Lorazepam (Lorazepam 1 Mg Tablet) 2 mg PO Q2HP PRN PRN Reason: CIWA-A >6 or HR >100 Last Admin: 10/07/22 02:13 Dose: 2 mg Magnesium Hydroxide (Magnesium Hydroxide 30 Ml Oral.Susp) 30 ml PO DAILYP PRN PRN Reason: Constipation Last Admin: 10/07/22 10:05 Dose: 30 ml Melatonin (Melatonin 3 Mg Tablet) 3 mg PO QHS [facility] Last Admin: 10/07/22 19:08 Dose: 3 mg Melatonin (Melatonin 3 Mg Tablet) 3 mg PO HSP PRN PRN Reason: Insomnia Methocarbamol (Methocarbamol 500 Mg Tablet) 500 mg PO TIDP PRN PRN Reason: Muscle Spasm Last Admin: 10/07/22 04:41 Dose: 500 mg Metoprolol Succinate (Metoprolol Succinate 25 Mg Tab.Xl.24h) 25 mg PO QDAY [facility] Last Admin: 10/08/22 08:37 Dose: 25 mg Nicotine (Nicotine 21 Mg Patch) 21 mg TOPICAL DAILY@1000 [facility] Last Admin: 10/07/22 10:06 Dose: 21 mg Nitroglycerin (Nitroglycerin 0.4 Mg Tab.Subl) 0.4 mg SL Q5M PRN PRN Reason: Chest Pain Ondansetron HCl (Ondansetron 4 Mg/2 Ml Vial) 4 mg IV Q6HP PRN PRN Reason: Nausea And Vomiting Last Admin: 10/07/22 19:12 Dose: 4 mg Ondansetron HCl (Ondansetron 4 Mg Odt Tablet) 4 mg SL Q6HP PRN PRN Reason: Nausea And Vomiting Last Admin: 10/06/22 11:27 Dose: 4 mg Oxycodone HCl (Oxycodone Ir 5 Mg Tablet) 5 - 10 mg PO Q4HP PRN; Protocol PRN Reason: Pain Last Admin: 10/08/22 08:38 Dose: 5 mg Polyethylene Glycol (Polyethylene Glycol 3350 17 Gm Packet) 17 gm PO DAILYP PRN PRN Reason: Constipation Quetiapine Fumarate (Quetiapine 25 Mg Tablet) 12.5 mg PO BIDP PRN PRN Reason: ANXIETY/SEDATION Last Admin: 10/07/22 19:47 Dose: 12.5 mg Senna (Sennosides 1 Tablet) 2 tab PO HS [facility] Last Admin: 10/07/22 19:09 Dose: 2 tab Sodium Biphosphate/Sodium Phosphate (Fleets Adult Enema) 1 dose [place] DAILYP PRN PRN Reason: Constipation Sodium Chloride (0.9 % Sodium Chloride 10 Ml Syringe) 10 ml IV Q8 [facility] Last Admin: 10/08/22 05:14 Dose: 10 ml Thiamine HCl (Thiamine 100 Mg Tablet) 100 mg PO QDAY [facility] Last Admin: 10/08/22 08:37 Dose: 100 mg Throat Lozenges (Benzocaine/Menthol 1 Lozenge) 1 lozenge PO PRN PRN PRN Reason: Sore Throat Warfarin Sodium (Warfarin 3 Mg Tablet) 3 mg PO SuMoWeThFr [facility] Last Admin: 10/07/22 13:15 Dose: 3 mg Warfarin Sodium (Warfarin 3 Mg Tablet) 6 mg PO TuSa [facility] Last Admin: 10/06/22 13:47 Dose: 6 mg Warfarin Sodium (Warfarin Per Pharmacy) 1 order PO [facility] A/P Time Spent With Patient Time: Total time spent is greater than 50% in coordination of care (as documented) at patient's floor/unit and/or counseling patient: QUALITY VTE Deep Vein Thrombosis/Pulmonary Embolism Present on Admission: Yes Restraints Restraint In Place: No
[2022-10-08 10:34] LABS: Basophils # (Auto) 0.07 K/mcL (0.00-0.30); Basophils % (Auto) 0.8 % (0.0-2.0); Eosinophils % (Auto) 7.5 % (0.0-7.0); Hematocrit 32.8 % (40.1-51.0); Hemoglobin 10.2 g/dL (13.7-17.5); Lymphocytes # (Auto) 2.06 K/mcL (1.50-4.80); Lymphocytes % (Auto) 22.2 % (15.5-49.0); Mean Cell Volume 95.6 fL (80.0-100.0); Mean Corpuscular HGB Conc 31.1 g/dL (31.0-36.0); Mean Platelet Volume 10.6 fL (8.8-12.5); Monocytes # (Auto) 0.94 K/mcL (0.10-0.90); Monocytes % (Auto) 10.1 % (1.0-12.0); Platelet Count 168 K/mcL (140-440); RBC 3.43 M/mcL (4.63-6.08); Red Cell Distribution Width 14.8 % (11.5-14.5); WBC 9.3 K/mcL (4.5-11.0)
[2022-10-08 11:01] LABS: ALT/SGPT 16 U/L (<40); AST/SGOT 22 U/L (<40); Albumin 2.9 gm/dL (3.2-5.2); Alkaline Phosphatase 70 U/L (39-117); Bilirubin,Total 0.8 mg/dL (0.1-1.0); Blood Urea Nitrogen 16 mg/dL (8-23); Calcium 8.3 mg/dL (8.6-10.4); Carbon Dioxide 28 mmol/L (22-30); Chloride 104 mmol/L (96-108); Globulin 2.9 gm/dL (2.2-3.7); Glomerular Filtration Rate 87; Glucose 129 mg/dL (70-105)
[2022-10-08] MEDS: WARFARIN 3 MG TABLET PO SCH (14:19)
[2022-10-08] MEDS: ACETAMINOPHEN 325 MG TABLET PO PRN (14:19)
[2022-10-08] MEDS: MAGNESIUM HYDROXIDE 30 ML ORAL.SUSP PO PRN (20:10)
[2022-10-08] MEDS: QUEtiapine 25 MG TABLET PO PRN (20:11)
[2022-10-08] MEDS: SENNOSIDES 1 TABLET PO SCH (20:11)
[2022-10-08] MEDS: METHOCARBAMOL 500 MG TABLET PO PRN (20:11)
[2022-10-08] MEDS: MELATONIN 3 MG TABLET PO SCH (20:11)
[2022-10-09] MEDS: CHOLESTYRAMINE/ASPARTAME 4 GM POWD.PACK PO SCH (05:21)
[2022-10-09] MEDS: 0.9 % SODIUM CHLORIDE 10 ML SYRINGE IV SCH (05:22)
[2022-10-09 06:21] LABS: Basophils # (Auto) 0.05 K/mcL (0.00-0.30); Basophils % (Auto) 0.5 % (0.0-2.0); Eosinophils # (Auto) 0.53 K/mcL (0.00-0.70); Eosinophils % (Auto) 5.6 % (0.0-7.0); Hematocrit 33.2 % (40.1-51.0); Hemoglobin 10.4 g/dL (13.7-17.5); Lymphocytes # (Auto) 2.25 K/mcL (1.50-4.80); Lymphocytes % (Auto) 23.9 % (15.5-49.0); Mean Cell Volume 95.1 fL (80.0-100.0); Mean Corpuscular HGB Conc 31.3 g/dL (31.0-36.0); Mean Platelet Volume 10.4 fL (8.8-12.5); Monocytes # (Auto) 0.97 K/mcL (0.10-0.90); Monocytes % (Auto) 10.3 % (1.0-12.0); Neutrophils % (Auto) 59.1 % (38.0-78.0); Platelet Count 197 K/mcL (140-440); RBC 3.49 M/mcL (4.63-6.08); WBC 9.4 K/mcL (4.5-11.0)
[2022-10-09 06:49] LABS: Blood Urea Nitrogen 21 mg/dL (8-23); Calcium 8.3 mg/dL (8.6-10.4); Carbon Dioxide 28 mmol/L (22-30); Chloride 102 mmol/L (96-108); Glomerular Filtration Rate 76; Glucose 128 mg/dL (70-105)
[2022-10-09 07:00] LABS: INR 1.7 (0.9-1.1); Prothrombin Time 21.1 sec (11.9-14.5)
[2022-10-09] MEDS: INSULIN LISPRO 1 UNIT/0.01 ML UNIT SQ SCH ×2 (07:14→11:28)
[2022-10-09] MEDS: ACETAMINOPHEN 325 MG TABLET PO PRN ×2 (07:16→11:12)
[2022-10-09] MEDS: METHOCARBAMOL 500 MG TABLET PO PRN (07:16)
[2022-10-09] MEDS: CLOPIDOGREL 75 MG TABLET PO SCH (07:58)
[2022-10-09] MEDS: DOCUSATE SODIUM 100 MG CAPSULE PO SCH (07:58)
[2022-10-09] MEDS: INSULIN GLARGINE, HUMAN 1 UNIT/0.01 ML SQ SCH (07:58)
[2022-10-09] MEDS: METOPROLOL SUCCINATE 25 MG TAB.XL.24H PO SCH (07:58)
[2022-10-09] MEDS: FOLIC ACID 1 MG TABLET PO SCH (07:58)
[2022-10-09] MEDS: MULTIVIT,THER IRON,CA,FA & MIN 1 TABLET PO SCH (07:59)
[2022-10-09] MEDS: THIAMINE 100 MG TABLET PO SCH (07:59)
[2022-10-09] MEDS: ATORVASTATIN 40 MG TABLET PO SCH (07:59)
[2022-10-09] MEDS: FLUoxetine HCL 20 MG CAPSULE PO SCH (07:59)
[2022-10-09] MEDS: cefTRIAXone 1 GM VIAL IV SCH (08:00)
--- NOTE | 2022-10-09 08:54 | XRay Report ---
INDICATION: fOLLOW UP aSPIRATION pna TECHNIQUE: PA and lateral upright chest x-ray COMPARISON: Previous chest x-rays dated 10/05/2022, 10/03/2022, 10/02/2022 FINDINGS: Lungs: No acute pulmonary parenchymal infiltrates. Previous examination demonstrated bilateral infiltrates which have resolved. Heart, vascular: No significant cardiomegaly. Pulmonary vascularity is normal. No pulmonary edema or pulmonary congestion Mediastinum, cipriano: No mediastinal widening. No hilar mass Pleura:There are small densities at the left lung base which appear to be pleural. There is mild blunting of left costophrenic angle. Pleural fluid or thickening is most likely. These findings are new since previous examinations and are not considered typical of malignancy. Thoracic spine, ribs: No thoracic compression fracture. Ribs are negative. No fracture. No lytic lesion. There is a catheter projected over the left supraclavicular region and upper left hemithorax. This is unchanged IMPRESSION: 1. Improved pulmonary parenchymal infiltrates are 2. Pleural-based densities at the left lung base consistent with pleural thickening or fluid Interpreted and Authenticated by: Crow Soloomn 10/09/22
[2022-10-09] MEDS: oxyCODONE IR 5 MG TABLET PO PRN (11:12)
[2022-10-09] MEDS: NICOTINE 21 MG PATCH TOPICAL SCH (11:15)
--- NOTE | 2022-10-09 11:37 | Discharge Summary ---
Discharge Provider Provider IMPORTANT FOLLOW-UP INFORMATION FOR PCP: Patient information: Note initiated : 10/09/22 at 11:31 am Service Date, if different from initiated Date: [] Patient: Wm Turner 67 y/o M admitted on 10/01/22 for Hip pain; RT hip fx. Chief Complaint: [] Date of admission: 10/01/22 21:02 Discharge date: 10/09/22 Primary care physician: Billy Mascorro MD Consults: 10/01/22 Consult to Physician [CONS] Stat Comment: Consulting Provider: Crow Sanders Reason For Exam: Physician to Consult 10/01/22 18:31 Consult to Physician [CONS] Stat Comment: Consulting Provider: Perfecto Wolf Reason For Exam: Physician to Consult COURSE Hospital Course Hospital course: Mr. Turner is a 67 year old M history of DVT, type 2 diabetes mellitus, depression, COPD, CAD, dyslipidemia, history of brain aneurysm, subarachnoid hemorrhage status post ventriculoperitoneal shunt, DVT on Coumadin, renal cell carcinoma presented after a fall in his bathtub with altered mental status. EMS found him with somewhat slurred speech after use of his fentanyl. Patient does not think he lost consciousness. However he did not remember much details of the incident. Patient was complaining of pain in right hip and was found to have right intertrochanteric fracture on x-ray. CT of the head showed no acute findings. Chest x-ray was unremarkable. Patient INR was 2.0. Patient had vomiting in ER and was suctioned. 10/02: INR 1.9 this morning. Patient is complaining of moderate right hip pain. He denies any shortness of breath. Orthopedic surgery scheduled at 4 PM today. Keep the patient n.p.o. with IV fluid for the time being. Continue narcotics as needed for pain control. Physical therapy evaluation and treatment for placement evaluation after the surgery. Overall condition guarded. Stay in [facility]. 10/03: INR 1.9 this morning. WBC 10.4 this morning. Afebrile overnight. On 5L/min oxygen. All cultures no growth to date. Patient has been NPO since midnight. Will touch base with anesthesia team and Dr. Sanders regarding the timing for surgery. Keep the patient n.p.o. until decision is made. Continue antibiotics with Rocephin and azithromycin for aspiration pneumonia/pneumonitis. Follow-up repeat chest x-ray result. Continue supplemental oxygen therapy. Physical therapy evaluation and treatment for placement planning after the surgery. Overall condition guarded. Stay in [facility]. 10/04: On 3L/min oxygen this morning. INR 1.6. Fasting glucose 126. Patient has been NPO since midnight. Continue supplemental oxygen, Rocephin, and azithromycin for aspiration pneumonia versus pneumonitis while monitoring for culture results. Surgery for right hip fracture by Dr. Garvey today. Physical therapy evaluation and treatment after the surgery for placement pending. Overall condition guarded. Stay in [facility]. 10/05: s/p operative fixation of right hip fracture by Dr. Garvey on 10/04. 50% weight bearing for 4-6 weeks. Patient c/o mild pain right lateral hip. He seems to be anxious, c/o nausea and vomiting. It was reported that patient might have been drinking alcohol, although patient denies and refused beer therapy. CIWA score 12. CIWA protocol for any potential alcohol withdrawal. Nicotine replacement therapy. Narcotics PRN post surgical pain. Physical therapy evaluation and treatment for placement planning. Overall condition guarded. Stay in [facility]. 10/06: Transferred to ICU to start Precedex drip for alcohol withdrawal delirium. However, patient did not tolerate the drip and he was essentially comatose so the drip was stopped. This morning he is CIWA score was 9 without any Precedex drip or even Ativan. He is on 4 L/min nasal cannula oxygen. He is complain of mild to moderate right hip pain. He is alert and oriented x4 to person place time and situations. We will continue CIWA protocol but will switch to p.o. Ativan as needed for symptoms controlled. Continue supplemental oxygen therapy, empiric antibiotics with Rocephin and azithromycin for aspiration pneumonia. Physical therapy evaluation and treatment for placement planning. Overall condition guarded. 10/07: Patient was restless and wanting to come out off his bed overnight requiring restraints and was given a dose of Haldol which did not help him calm down. Per patient friend he drinks 4-6 drinks mainly over the weekend and he is not a daily drinker. Patient has been on CIWA protocol. Patient did not sleep much overnight, he was sleepy this morning however would become awake when prompted, he knew he was in the hospital, knew the president and in the second attempt was able to tell the correct date, month and year. We will try to minimize use of opioids and Ativan and instead try smallest dose of Seroquel. Patient is also noted to have some sleep apnea, ABGs obtained showed pH of 7.36, PCO2 52 PO2 61 HCO3 30. Patient will have CPAP/BiPAP with naps and at bedtime. 10/08: Patient was seen, his daughter from [place] was present in the room. She reported patient has brain aneurysm x2 he had craniotomy couple years ago and one brain aneurysm was surgically treated. His daughter reports that patient mentation has improved after patient was started on Seroquel, also minimizing use of benzodiazepine and opioids. Patient has been sitting up in the chair without any concerns. Daughter is happy with his progress. Patient orientation and mentation is improving. He did have Tmax of 100.4 this morning. Will obtain CBC and CMP. He did tolerate BiPAP overnight. He was advised to have sleep study as an outpatient. 10/09. Patient had a good night. His constipation is resolved. Kuo catheter was removed yesterday, he is urinating well without any evidence of retention. WBC 9.4 within normal range. Hemoglobin 10.4 and trending up. Renal functions remained stable. Chest x-ray showed improved pulmonary infiltrates. Review of system 14 point review of system was completed. Patient denied any fever or chills No headache, no double vision No chest pain, no palpitation No nausea or vomiting No polyuria, no hematuria Denies any pain Physical examination Head Head exam: Present atraumatic and normal inspection Eye Eye exam: Present normal appearance ENT ENT exam: Present mucous membranes moist, normal exam and normal external ear exam Additional comments: Nasal cannula in place Neck Neck exam: Present normal inspection Respiratory Respiratory exam: Chest is clear bilaterally Cardiovascular Cardiovascular exam: Present normal rate and rhythm GI/Abdominal GI/Abdominal exam: Present normal bowel sounds Additional comments: Kuo catheter in place Extremities Exam Extremities exam: Present full ROM and tenderness; Absent normal inspection Additional comments: Right lateral hip, surgical dressing on Back Exam Back exam: Present normal inspection Neurological Exam Neurological exam: Alert, awake, oriented to person place and time. Skin Skin exam: Present intact and warm Assessment and Plan: 1. Right hip intertrochanteric fracture: s/p surgical fixation of right hip fracture by Dr. Garvey. 50% weight bearing for 4-6 week Coumadin resumed, INR 1.7 today Pain control with Tylenol, avoid opioids and benzodiazepine due to risk of confusion Patient accepted at SNF and will be transferred there today 2. h/o DVT: Continue Coumadin, INR still subtherapeutic. 3. h/o CAD: On Plavix, Metoprolol succinate ER, Lipitor 4. Dyslipidemia: Lipitor 5. T2DM: HgA1c 7.1 Insulin Glargine 10 unit daily Insulin Lispro SSI AC HS Accu Check AC HS Hypoglycemia protocol Diabetic diet 6. Depression: Fluoxetine 7. h/o COPD: DuoNEB NEB PRN shortness of breath or wheezing 8. Aspiration pneumonia: Patient completed azithromycin course and received ceftriaxone Follow-up procalcitonin low Repeat chest x-ray on 10/09 showed improved pulmonary infiltrates. 9. Cigarette smoker: Nicotine replacement therapy 10. Potential alcohol withdrawal symptoms: Patient's status post CIWA protocol, did not tolerate Precedex drip Per report alcohol intake is not significant to account for alcohol withdrawal Discontinue CIWA protocol and benzodiazepines. 11. Suspect obstructive sleep apnea Patient is obese and had episode of sleep apnea, ABGs with CO2 retention CPAP/BiPAP during naps and at bedtime Recommend sleep study as an outpatient Altered mental status, delirium Responded well to Seroquel GI ppx: not currently indicated DVT ppx: Coumadin Code status: Full Prognosis: guarded Time Spent With Patient Time: Total time spent is greater than 50% in coordination of care (as documented) at patient's floor/unit and/or counseling patient: Total time 40 minutes Discharge diagnosis: Hip fracture, pneumonia, delirium Time Spent with Patient Time attestation: Total time spent providing and/or coordinating discharge services: Time spent: Greater than 30 minutes EXAM Constitutional Vitals: Temp Pulse Resp BP Pulse Ox O2 Del Method O2 Flow Rate 97.9 F 70 17 151/62 92 Nasal Cannula 3 10/09/22 04:01 10/09/22 11:01 10/09/22 11:01 10/09/22 11:01 10/09/22 11:01 10/09/22 11:01 10/09/22 11:01 Discharge Data Data Completed and Pending Labs on day of discharge: Labs from last 24 hours 10/09/22 10/09/22 10/09/22 05:29 05:29 05:29 WBC 9.4 RBC 3.49 L Hgb 10.4 L Hct 33.2 L MCV 95.1 MCH 29.8 MCHC 31.3 RDW 15.0 H Plt Count 197 MPV 10.4 Immature Gran % (Auto) 0.6 H Neut % (Auto) 59.1 Lymph % (Auto) 23.9 [place] % (Auto) 10.3 Eos % (Auto) 5.6 Baso % (Auto) 0.5 Lymph # (Auto) 2.25 [place] # (Auto) 0.97 H Eos # (Auto) 0.53 Baso # (Auto) 0.05 Immature Gran # 0.06 H Absolute Neutrophils 5.57 PT 21.1 H INR 1.7 H Sodium 137 Potassium 4.1 Chloride 102 Carbon Dioxide 28 Anion Gap 7.0 L BUN 21 Creatinine 1.0 GFR Calculation 76 Glucose 128 H Calcium 8.3 L Discharge Plan Patient/Caregiver Discharge Instructions Activity: as per physical therapy and as instructed Diet: Cardiac and Consistent Carbohydrate Instructions: Hip Fracture (GEN) Activity Restrictions/Additional Instructions: -50% weight bearing with walker for 4-6 weeks -OK to shower with dressing in place. Do not submerge in water such as a bath. -Ice for 20-30 minutes every 2-3 hours to help with pain/swelling -No restrictions to range of motion Prescriptions: New quetiapine 25 mg Tablet 12.5 mg PO BIDP PRN (Reason: Anxiety/Sedation) Qty: 30 0RF nicotine [Nicoderm CQ] 21 mg/24 hr Patch 24 Hour 14 mg topical DAILY@1000 Qty: 30 0RF oxycodone 5 mg Tablet 5 - 10 mg PO Q4HP PRN (Reason: Pain) 5 Days Qty: 10 0RF Thera M Plus (ferrous fumarat) 9 mg iron-400 mcg Tablet 1 tab PO DAILY Qty: 30 0RF thiamine mononitrate (vit B1) 100 mg Tablet 100 mg PO QDAY Qty: 30 0RF Continued (DME) lancets [Accu-Chek Softclix Lancets] misc See Dose Instructions .ROUTE .MEDSUPPLY Qty: 100 11RF Dose Instruction: As directed Rx Instructions: Use to test BG three times daily (DME) Monoject TB Luer Serenity 1 mL syringe See Rx Instructions .ROUTE .MEDSUPPLY Qty: 240 1RF Rx Instructions: As directed (DME) Accu-Chek Aliza Plus test strp Strip See Dose Instructions .ROUTE .MEDSUPPLY Qty: 100 11RF Dose Instruction: As directed Rx Instructions: As directed to test BG three times daily (DME) pen needle, diabetic [Unifine Pentips] 31 gauge x 5/16" needle See Dose Instructions .ROUTE .MEDSUPPLY Qty: 100 3RF Dose Instruction: As directed Rx Instructions: Use with Lantus once daily acetaminophen 325 mg tablet 325 mg PO Q4H PRN (Reason: fever or pain) Qty: 100 3RF cholestyramine (with sugar) 4 gram powder 4 g PO BID Qty: 378 1RF Rx Instructions: administer w/meal; avoid other meds within 1hr before or 4-6hr after dose fluoxetine 20 mg capsule 20 mg PO QDAY Qty: 90 1RF albuterol sulfate [Ventolin HFA] 90 mcg/actuation HFA aerosol inhaler 2 puff INHALATION Q4H PRN (Reason: shortness of breath or wheezing) Lantus Solostar U-100 Insulin 100 unit/mL (3 mL) insulin pen 10 unit SUB-Q QDAY melatonin 3 mg tablet 3 mg PO QHS atorvastatin 40 mg tablet 40 mg PO QDAY clopidogrel 75 mg tablet 75 mg PO QDAY metoprolol succinate 25 mg tablet extended release 24 hr 25 mg PO QDAY warfarin 6 mg tablet See Rx Instructions PO .COMPLEX Qty: 90 1RF Protocol: Dose Management Condition: Saturday (Week One) Dose/Route: 3 mg Instruction: 0.5 x 6 mg tablets Condition: Saturday Dose/Route: 3 mg Instruction: 0.5 x 6 mg tablets Condition: Saturday Dose/Route: 6 mg Instruction: 1 x 6 mg tablet Condition: Saturday Dose/Route: 0 mg Instruction: 0 tablets Condition: Dose/Route: 3 mg Instruction: 0.5 x 6 mg tablets Condition: Saturday Dose/Route: 3 mg Instruction: 0.5 x 6 mg tablets Condition: Saturday Dose/Route: 6 mg Instruction: 1 x 6 mg tablet Condition: Saturday (Week Two) Dose/Route: 3 mg Instruction: 0.5 x 6 mg tablets Condition: Saturday Dose/Route: 3 mg Instruction: 0.5 x 6 mg tablets Condition: Saturday Dose/Route: 6 mg Instruction: 1 x 6 mg tablet Condition: Saturday Dose/Route: 3 mg Instruction: 0.5 x 6 mg tablets Condition: Dose/Route: 3 mg Instruction: 0.5 x 6 mg tablets Condition: Saturday Dose/Route: 3 mg Instruction: 0.5 x 6 mg tablets Condition: Saturday Dose/Route: 6 mg Instruction: 1 x 6 mg tablet Protocol Text: Adjustment Start Date: Saturday09/12/22 INR Value: 3.4 INR Date: 09/12/22 Recheck Date: 10/10/22 Rx Instructions: Take 6mg . and Sat. and 3mg the other 5 days nitroglycerin 0.3 mg tablet, sublingual 0.3 mg sublingual Q5M PRN (Reason: chest pain) Qty: 30 0RF Rx Instructions: do not exceed 3 doses per episode Other Ambulatory Orders: OT Discharge Order (Routine) Location: None Selected Ordered By: Dominguez Connell Physical Therapy at Discharge - General (Routine) Location: None Selected Ordered By: Dominguez Connell Follow Up Plan Follow up with: Billy Mascorro MD [Primary Care Provider] - Spike Hdz PA-C [Physician Plate Shop Helper] - 10/17/22 9:40 am () Patient Disposition: Xfer SNF Rehab Potential: Fair I certify that the patient requires SNF services: Yes Overall status at discharge: patient is not back to baseline Discharge Orders: Discharge Order (Routine); Ordered 10/09/22 Ordered By: Dominguez Connell QUALITY VTE Deep Vein Thrombosis/Pulmonary Embolism Present on Admission: Yes
== END 2022-10-09 11:55 | DRG 480 ==
LOC: ED 16:26 → MEDSUR 21:02 → ICU 10-05 17:28
PROVIDERS: ADMIT Internal Medicine; ATTEND Internal Medicine